=== PATIENT | female | born 1940 | race Caucasian/White ===

== ENCOUNTER 2019-12-11 07:51 | Outpatient (REF) | payer MEDICARE, OTHER, SELFPAY ==
[2019-12-11 12:01] LABS: Cholesterol 207 mg/dL; HDL Cholesterol 84 mg/dL; LDL Cholesterol Calculated 98 mg/dl; Triglycerides 128 mg/dL
== END 2019-12-11 07:52 | disposition home or self-care (01) ==
LOC: HO.HMGCLDS 07:51
PROVIDERS: PCP Internal Medicine; Visit Provider Internal Medicine
DX: E78.5 Hyperlipidemia, unspecified (principal)
CPT/HCPCS: 36415; 80061

== ENCOUNTER 2020-02-14 09:20 | Outpatient (REF) | payer MEDICARE, OTHER, SELFPAY ==
--- NOTE | 2020-02-14 09:30 | MM_ITS ---
EXAMINATION: MM SCREENING DIGITAL BREAST TOMOSYNTHESIS, BILATERAL CLINICAL INFORMATION: Screening. Asymptomatic. The lifetime risk of breast cancer based on the Tyrer-Cuzick Model is 2.0%. COMPARISON: Mammography: February 08, 2019 and studies dating back to December 29, 2011 TECHNIQUE: Digital breast tomosynthesis is performed in both the craniocaudal and mediolateral oblique views along with computer-aided detection (CAD). Synthesized 2D images are generated from the tomosynthesis. FINDINGS: There are scattered areas of fibroglandular density (ACR BI-RADS breast composition Category b). There are no significant masses, abnormal calcifications, or other abnormalities. MM/MM tomosynthesis screening BI IMPRESSION: There are no significant changes from prior study. ASSESSMENT: BI-RADS 1: Negative RECOMMENDATION: Routine annual mammography screening. This patient's information was entered into a reminder system with a target due date for their next mammogram.
== END 2020-02-14 09:21 | disposition home or self-care (01) ==
LOC: HO.MAMMO 09:20
PROVIDERS: PCP Internal Medicine; Visit Provider Internal Medicine
DX: Z12.31 Encounter for screening mammogram for malignant neoplasm of breast (principal)
CPT/HCPCS: 77063; 77067

== ENCOUNTER 2020-04-05 10:58 | Emergency (ER) | payer MEDICARE, OTHER, SELFPAY ==
[2020-04-05 11:26] VITALS: BP 149/70; PULSE 98; RESP 16; TEMP 38.4; O2SAT 95; BMI 31.4
--- NOTE | 2020-04-05 11:37 | CT_ITS ---
EXAMINATION: CT CHEST, CT ABDOMEN AND PELVIS WITHOUT CONTRAST. CLINICAL INFORMATION: Fever and cough. COMPARISON: None TECHNIQUE: 5 mm thin axial and reformatted 3 mm thin sagittal and coronal images of chest, abdomen and pelvis were obtained without contrast. DLP 932. FINDINGS: CHEST: The lungs are expanded with diffuse groundglass patchy opacity seen in left upper lobe, right upper lobe, both lower lobes, right middle lobe and lingular segments of which is most prominent in the left upper lobe consistent with infiltrates. No large mass or pulmonary nodules seen. Heart size and the great vessels are normal caliber. There is no pericardial effusion. There is a small hiatal hernia. The central trachea and bronchi are widely patent. There is no abnormal size mediastinal mass. There are small shotty lymph nodes in the mediastinum. The thyroid lobes are symmetrical and normal. There is minimal bilateral posterior pleural thickening but no effusion is or pneumothorax. Small shotty lymph nodes are seen in bilateral axilla. The chest wall appears unremarkable. ABDOMEN AND PELVIS: The liver is normal size, shape and density. No focal lesion or intrahepatic ductal dilatation seen. The gallbladder is contracted and appears unremarkable. The spleen is normal size and density. The pancreas is homogeneous in density with normal size no focal lesion seen. Bilateral adrenal glands are unremarkable. Both kidneys are normal size, shape and position. No radiopaque renal calculi or hydronephrosis seen. The abdominal aorta is normal course and caliber. No abnormal size retroperitoneal lymph nodes seen. Abdominal wall appears unremarkable. There is scattered stool and gas seen in the colon without any significant distention. The appendix is normal caliber. No inflammatory process seen in the abdomen. Imaging through the pelvis reveals no significant abnormality. Bone windows reveal degenerative disc changes and vacuum disc phenomenon at every disc level. There is moderate ventral spondylosis throughout lumbar spine. CT/CT abdomen pelvis wo con IMPRESSION: Bilateral multilobar infiltrate. Reactive lymph nodes seen in the mediastinum but still within normal limits. Small hiatal hernia Mild constipation otherwise there is no acute process seen in the abdomen.
--- NOTE | 2020-04-05 11:38 | ECG_ITS ---
Test Reason : abdominal pain Blood Pressure : / mmHG Vent. Rate : 066 BPM Atrial Rate : 066 BPM P-R Int : 194 ms QRS Dur : 088 ms QT Int : 412 ms P-R-T Axes : 053 -02 -08 degrees QTc Int : 431 ms Normal sinus rhythm Minimal voltage criteria for LVH, may be normal variant Borderline ECG When compared with ECG of 29-APR-2017 09:56, T wave amplitude has decreased in Lateral leads Referred By: Consuelo Morejon Electronically Signed By:Jeremy Gutierrez
--- NOTE | 2020-04-05 11:50 | ED_ITS ---
HPI - URI/Sore Throat General Chief Complaint: Upper Respiratory Symptoms Stated Complaint: FEVER COUGH ABD PAIN Time Seen by Provider: 04/05/20 11:36 Source: patient Mode of arrival: ambulatory Limitations: no limitations History of Present Illness HPI Narrative: 2 weeks of cough, back pain upper abdominal pain and nausea, noted fevers as well, no sick contacts, sputum became more yellow recently, has had poor PO intake, no CP/SOB, recently dx with uterine cancer but localized and s/p hysterectomy MD elicited complaint: fever and cough Pertinent past history: other (pneumonia) Onset (ago): week(s) (2) Consistency: constant Severity: moderate Description of mucous: clear Able to tolerate fluids by mouth: Yes Exacerbating factors: nothing Relieving factors: nothing Associated symptoms: fever, chills, cough, abdominal pain and nausea Treatments prior to arrival: none Related Data Home Medications Medication Instructions Recorded Confirmed fluocinonide 0.05 % topical 1 applic TOPICAL BID 01/26/20 01/26/20 ointment triamcinolone acetonide 0.1 % TOPICAL 01/26/20 01/26/20 topical ointment Previous Rx's Medication Instructions Recorded atenolol 25 mg tablet 50 mg PO DAILY 90 Days #180 tab 12/18/19 meclizine 25 mg tablet 25 mg PO TID #90 tab 02/05/20 hydrochlorothiazide 25 mg tablet 25 mg PO DAILY #90 tab 03/11/20 lovastatin 40 mg tablet 40 mg PO DAILY #90 tab 03/11/20 cefuroxime axetil 500 mg PO BID 7 Days #28 tab 04/05/20 dexamethasone 4 mg PO DAILY 5 Days #5 tab 04/05/20 doxycycline hyclate 100 mg PO BID 7 Days #14 cap 04/05/20 Allergies Allergy/AdvReac Type Severity Reaction Status Date / Time ciprofloxacin [From Cipro] Allergy Mild DIARRHEA,CR Verified 04/05/20 11:30 AMPING clarithromycin [From Biaxin] Allergy Mild DIARRHEA,CR Verified 04/05/20 11:30 AMPING AKI Inhibitors Allergy Unknown Unknown Verified 04/05/20 11:30 indomethacin [From INDOCIN] Allergy Unknown DIZZY Verified 04/05/20 11:30 lisinopril [LISINOPRIL] Allergy Unknown DIZZY Verified 04/05/20 11:30 Review of Systems Review of Systems: Constitutional : No Weight loss, pos Fever, No Chills, pos Fatigue, pos Malaise ENT/Mouth : No sore throat, No Rhinorrhea Eyes: No Eye Pain, No Swelling, No Redness Cardiovascular : No Chest Pain, No SOB, No Dyspnea on Exertion, No Orthopnea, No Edema, No Palpitations Respiratory : pos Cough, pos Sputum, No Wheezing Gastrointestinal : pos Nausea, No Vomiting, No Diarrhea, No Constipation, pos abdominal Pain, No Hematochezia, No Melena Genitourinary : No Dysuria, No Urinary Frequency, No Hematuria, Musculoskeletal : No joint pain, pos Myalgias, No Joint Swelling Skin : No Skin Lesions, No rash Neuro : No Weakness, No Numbness, No Dizziness, No Headache Psych : No Anxiety/Panic, No Depression Heme/Lymph: No Bruising, No Bleeding,No Lymphadenopathy Endocrine : No Polyuria, No Polydipsia All other systems reviewed and are negative FORMERLY [facility], [facility] Past Medical History Attestation statement: The following information was validated with the patient. Medical History Hypertension Surgical History H/O rectal polypectomy History of breast lump/mass excision History of cataract surgery History of section History of hysterectomy History of melanoma excision Family History Family History (Updated 01/23/20 @ 11:26 by Hui Rae [facility]) Father Stroke Mother Emphysema lung Social History Social History Alcohol intake: current Alcohol intake frequency: holidays/special occasions only Smoking Status: Never smoker Tobacco Type: Cigarette Advance Directives: No Advance Directives Information Provided: No Physical Exam Vital Signs: Vital Signs: Last Vital Signs Temp 101.2 F H 04/05/20 11:26 Pulse 64 04/05/20 14:12 Resp 18 04/05/20 14:12 BP 122/53 L 04/05/20 14:12 Pulse Ox 94 04/05/20 14:18 Body Mass Index 31.4 Appearance: Alert. Oriented X3. No acute distress. Not toxic, well appearing Eyes: Pupils equal, round and reactive to light. ENT: Pharynx normal. Neck: Normal inspection. Neck supple. CVS: Normal heart rate and rhythm. Pulses normal. Respiratory: No respiratory distress. Breath sounds normal but rales in RLL Abdomen: Soft and nontender. Skin: Skin warm and dry. Normal skin color. Normal skin turgor. Extremities: No lower extremity edema. No calf ttp Neuro: Oriented X 3. No motor deficit. No sensory deficit. Course Course Course Narrative: walking sat 94% denies shortness of breath repeat trop flat, doubt bacterial component, WBC normal seems COVID related, requires no O2 will start on steroids, antibiotics and she has a pulse oximeter at home MDM - URI/Sore Throat MDM Narrative Medical decision making narrative: 79 yo female with HTN, s/p hysterectomy for localized endometrial cancer - has been doing well but for 2 weeks notes poor PO intake, malaise some upper abdominal pain and back pain, cough with sputum pr oduction, no CP/SOB hypoxia or tachycardia to suggest PE CT chest abdomen for infection/pneumonia, COVID swab, PO tylenol and zofran, UA ordered, dispo per results and findings. Lab Data Result diagrams: 04/05/20 12:10 04/05/20 12:10 Labs: Lab Results 04/05/20 04/05/20 04/05/20 Range/Units 12:10 12:10 12:10 WBC 3.5 L (4.8-10.8) X10*3/uL RBC 4.76 (4.20-5.50) X10*6/uL Hgb 14.3 (12.0-16.0) g/dl Hct 44.1 (37-47) % MCV 92.6 (80-98) fL MCH 30.0 (27.0-33.0) pg MCHC 32.4 (31.0-35.0) g/dl RDW 12.4 (11.0-16.0) % Plt Count 149 L (160-400) X10*3/uL MPV 10.5 (9.4-12.3) fL Immature Gran % (Auto) 0.3 (0.0-0.4) % Neut % (Auto) 59.1 (45-73) % Lymph % (Auto) 18.4 L (20-40) % Mcdonald % (Auto) 21.9 H (2-11) % Eos % (Auto) 0.0 (0-4) % Baso % (Auto) 0.3 (0-2) % Lymph # (Auto) 0.6 L (1.2-4.9) X10*3/uL Mcdonald # (Auto) 0.8 (0.1-1.2) X10*3/uL Eos # (Auto) 0.0 (0.0-0.4) X10*3/uL Baso # (Auto) 0.0 (0.0-0.2) X10*3/uL Abs Immat Gran (auto) 0.01 (0.00-0.03) X10*3/uL Absolute Neuts (auto) 2.1 (2.0-8.3) X10*3/uL Absolute Nucleated RBC 0.000 (0.0-0.012) X10*3/uL Nucleated RBC % (auto) 0.0 (0.0-0.2) /100WBC Smear Tech's Comments VERIFIED PT 14.5 H (10.8-13.0) SEC INR 1.2 H (0.9-1.1) APTT 39.5 H (24.1-38.0) SEC Sodium 137 (135-145) mmol/L Potassium 3.5 (3.3-5.1) mmol/L Chloride 94 L (96-108) mmol/L Carbon Dioxide 31 H (22-29) mmol/L Anion Gap 16 (12-20) BUN 15 (9-16) mg/dL Creatinine 0.75 (0.5-1.4) mg/dL Estim Creat Clear Calc 57.4 Estimated GFR > 60 Random Glucose 115 (60-115) mg/dL Lactic Acid (0.5-2.0) mmol/L Calcium 8.4 (8.4-10.2) mg/dL Magnesium 1.9 (1.6-2.6) mg/dL Ferritin (10-250) ng/mL Total Bilirubin 0.6 (0.0-1.0) mg/dL Direct Bilirubin 0.2 (0.0-0.5) mg/dL AST 34 H (5-31) U/L ALT 23 (0-31) U/L Alkaline Phosphatase 59 (39-117) U/L Lactate Dehydrogenase 272 H (122-220) U/L Troponin I High Sens (<3.5-17.0) ng/L Total Protein 7.4 (6.5-8.0) g/dL Albumin 4.2 (3.5-5.0) g/dL Lipase (8-78) U/L Procalcitonin ng/mL Specimen Comment Coronavirus (PCR) (Negative) Influenza Type A (PCR) (Negative) Influenza Type B (PCR) (Negative) RSV RNA Qual (PCR) (Negative) 04/05/20 04/05/20 04/05/20 Range/Units 12:10 12:10 12:10 WBC (4.8-10.8) X10*3/uL RBC (4.20-5.50) X10*6/uL Hgb (12.0-16.0) g/dl Hct (37-47) % MCV (80-98) fL MCH (27.0-33.0) pg MCHC (31.0-35.0) g/dl RDW (11.0-16.0) % Plt Count (160-400) X10*3/uL MPV (9.4-12.3) fL Immature Gran % (Auto) (0.0-0.4) % Neut % (Auto) (45-73) % Lymph % (Auto) (20-40) % Mcdonald % (Auto) (2-11) % Eos % (Auto) (0-4) % Baso % (Auto) (0-2) % Lymph # (Auto) (1.2-4.9) X10*3/uL Mcdonald # (Auto) (0.1-1.2) X10*3/uL Eos # (Auto) (0.0-0.4) X10*3/uL Baso # (Auto) (0.0-0.2) X10*3/uL Abs Immat Gran (auto) (0.00-0.03) X10*3/uL Absolute Neuts (auto) (2.0-8.3) X10*3/uL Absolute Nucleated RBC (0.0-0.012) X10*3/uL Nucleated RBC % (auto) (0.0-0.2) /100WBC Smear Tech's Comments PT (10.8-13.0) SEC INR (0.9-1.1) APTT (24.1-38.0) SEC Sodium (135-145) mmol/L Potassium (3.3-5.1) mmol/L Chloride (96-108) mmol/L Carbon Dioxide (22-29) mmol/L Anion Gap (12-20) BUN (9-16) mg/dL Creatinine (0.5-1.4) mg/dL Estim Creat Clear Calc Estimated GFR Random Glucose (60-115) mg/dL Lactic Acid 1.3 (0.5-2.0) mmol/L Calcium (8.4-10.2) mg/dL Magnesium (1.6-2.6) mg/dL Ferritin 694 H (10-250) ng/mL Total Bilirubin (0.0-1.0) mg/dL Direct Bilirubin (0.0-0.5) mg/dL AST (5-31) U/L ALT (0-31) U/L Alkaline Phosphatase (39-117) U/L Lactate Dehydrogenase (122-220) U/L Troponin I High Sens (<3.5-17.0) ng/L Total Protein (6.5-8.0) g/dL Albumin (3.5-5.0) g/dL Lipase 67 (8-78) U/L Procalcitonin 0.10 ng/mL Specimen Comment Coronavirus (PCR) (Negative) Influenza Type A (PCR) (Negative) Influenza Type B (PCR) (Negative) RSV RNA Qual (PCR) (Negative) 04/05/20 04/05/20 04/05/20 Range/Units 12:10 12:11 14:07 WBC (4.8-10.8) X10*3/uL RBC (4.20-5.50) X10*6/uL Hgb (12.0-16.0) g/dl Hct (37-47) % MCV (80-98) fL MCH (27.0-33.0) pg MCHC (31.0-35.0) g/dl RDW (11.0-16.0) % Plt Count (160-400) X10*3/uL MPV (9.4-12.3) fL Immature Gran % (Auto) (0.0-0.4) % Neut % (Auto) (45-73) % Lymph % (Auto) (20-40) % Mcdonald % (Auto) (2-11) % Eos % (Auto) (0-4) % Baso % (Auto) (0-2) % Lymph # (Auto) (1.2-4.9) X10*3/uL Mcdonald # (Auto) (0.1-1.2) X10*3/uL Eos # (Auto) (0.0-0.4) X10*3/uL Baso # (Auto) (0.0-0.2) X10*3/uL Abs Immat Gran (auto) (0.00-0.03) X10*3/uL Absolute Neuts (auto) (2.0-8.3) X10*3/uL Absolute Nucleated RBC (0.0-0.012) X10*3/uL Nucleated RBC % (auto) (0.0-0.2) /100WBC Smear Tech's Comments PT (10.8-13.0) SEC INR (0.9-1.1) APTT (24.1-38.0) SEC Sodium (135-145) mmol/L Potassium (3.3-5.1) mmol/L Chloride (96-108) mmol/L Carbon Dioxide (22-29) mmol/L Anion Gap (12-20) BUN (9-16) mg/dL Creatinine (0.5-1.4) mg/dL Estim Creat Clear Calc Estimated GFR Random Glucose (60-115) mg/dL Lactic Acid (0.5-2.0) mmol/L Calcium (8.4-10.2) mg/dL Magnesium (1.6-2.6) mg/dL Ferritin (10-250) ng/mL Total Bilirubin (0.0-1.0) mg/dL Direct Bilirubin (0.0-0.5) mg/dL AST (5-31) U/L ALT (0-31) U/L Alkaline Phosphatase (39-117) U/L Lactate Dehydrogenase (122-220) U/L Troponin I High Sens 13.4 (<3.5-17.0) ng/L Total Protein (6.5-8.0) g/dL Albumin (3.5-5.0) g/dL Lipase (8-78) U/L Procalcitonin ng/mL Specimen Comment DELAY Coronavirus (PCR) POSITIVE A (Negative) Influenza Type A (PCR) NEGATIVE (Negative) Influenza Type B (PCR) NEGATIVE (Negative) RSV RNA Qual (PCR) NEGATIVE (Negative) 04/05/20 Range/Units 15:07 WBC (4.8-10.8) X10*3/uL RBC (4.20-5.50) X10*6/uL Hgb (12.0-16.0) g/dl Hct (37-47) % MCV (80-98) fL MCH (27.0-33.0) pg MCHC (31.0-35.0) g/dl RDW (11.0-16.0) % Plt Count (160-400) X10*3/uL MPV (9.4-12.3) fL Immature Gran % (Auto) (0.0-0.4) % Neut % (Auto) (45-73) % Lymph % (Auto) (20-40) % Mcdonald % (Auto) (2-11) % Eos % (Auto) (0-4) % Baso % (Auto) (0-2) % Lymph # (Auto) (1.2-4.9) X10*3/uL Mcdonald # (Auto) (0.1-1.2) X10*3/uL Eos # (Auto) (0.0-0.4) X10*3/uL Baso # (Auto) (0.0-0.2) X10*3/uL Abs Immat Gran (auto) (0.00-0.03) X10*3/uL Absolute Neuts (auto) (2.0-8.3) X10*3/uL Absolute Nucleated RBC (0.0-0.012) X10*3/uL Nucleated RBC % (auto) (0.0-0.2) /100WBC Smear Tech's Comments PT (10.8-13.0) SEC INR (0.9-1.1) APTT (24.1-38.0) SEC Sodium (135-145) mmol/L Potassium (3.3-5.1) mmol/L Chloride (96-108) mmol/L Carbon Dioxide (22-29) mmol/L Anion Gap (12-20) BUN (9-16) mg/dL Creatinine (0.5-1.4) mg/dL Estim Creat Clear Calc Estimated GFR Random Glucose (60-115) mg/dL Lactic Acid (0.5-2.0) mmol/L Calcium (8.4-10.2) mg/dL Magnesium (1.6-2.6) mg/dL Ferritin (10-250) ng/mL Total Bilirubin (0.0-1.0) mg/dL Direct Bilirubin (0.0-0.5) mg/dL AST (5-31) U/L ALT (0-31) U/L Alkaline Phosphatase (39-117) U/L Lactate Dehydrogenase (122-220) U/L Troponin I High Sens 13.5 (<3.5-17.0) ng/L Total Protein (6.5-8.0) g/dL Albumin (3.5-5.0) g/dL Lipase (8-78) U/L Procalcitonin ng/mL Specimen Comment Coronavirus (PCR) (Negative) Influenza Type A (PCR) (Negative) Influenza Type B (PCR) (Negative) RSV RNA Qual (PCR) (Negative) ECG Data Attestation: I personally reviewed and interpreted this ECG as follows: ECG interpretation date: 04/05/20 ECG interpretation time: 14:36 Interpretation: Rate: 66 Rhythm: NSR [place]: left Normal P waves. Normal REHANA. Normal QRS complex. ST T wave : no KIMBERLY, nonspecific qTC: normal prior studies: no acute ischemia The study has been interpreted contemporaneously by me. . Discharge Plan Discharge Clinical Impression: Pneumonia due to 2019-nCoV Fever Qualifiers: Fever type: unspecified Qualified Code(s): R50.9 - Fever, unspecified Patient Disposition: Home, Self-Care Additional Instructions: return to ED for any worsening symptoms or concerns USE YOUR OXYGEN PULSE OXIMETER AT HOME IF YOU DROP BELOW 90 PLEASE COME BACK SOON POSSIBLE, MONITOR YOUR BREATHING, IF YOU ARE SO SHORT OF BREATH YOU CANNOT MAKE IT TO THE BATHROOM CALL 911. DO NOT TAKE ANY DEXAMETHASONE TONIGHT OR ANTIBIOTICS START IN THE MORNING Prescriptions: New doxycycline hyclate 100 mg capsule 100 mg PO BID 7 Days Qty: 14 RF: 0 cefuroxime axetil 250 mg tablet 500 mg PO BID 7 Days Qty: 28 RF: 0 dexamethasone 4 mg tablet 4 mg PO DAILY 5 Days Qty: 5 RF: 0 No Action atenolol 25 mg tablet 50 mg PO DAILY 90 Days Qty: 180 RF: 8 meclizine 25 mg tablet 25 mg PO TID Qty: 90 RF: 5 lovastatin 40 mg tablet 40 mg PO DAILY Qty: 90 RF: 8 hydrochlorothiazide 25 mg tablet 25 mg PO DAILY Qty: 90 RF: 8 fluocinonide 0.05 % ointment 1 applic topical BID RF: 0 triamcinolone acetonide 0.1 % ointment topical RF: 0
[2020-04-05] MEDS: ondansetron HCL 4 MG/2 ML VIAL IVPUSH (12:22)
[2020-04-05] MEDS: Acetaminophen 325 MG TABLET 650 MG PO (12:22)
[2020-04-05 12:27] LABS: INTERNATIONAL NORM RATIO 1.2 (0.9-1.1); Prothrombin Time 14.5 SEC (10.8-13.0)
[2020-04-05 12:29] LABS: Basophils Percent Auto 0.3 % (0-2); Hematocrit 44.1 % (37-47); Hemoglobin 14.3 g/dl (12.0-16.0); Imm Gran Abs Auto 0.01 X10*3/uL (0.00-0.03); Imm Gran Pct Auto 0.3 % (0.0-0.4); Lymphocytes Absolute Auto 0.6 X10*3/uL (1.2-4.9); Lymphocytes Percent Auto 18.4 % (20-40); MANUAL DIFF FLAG SCAN; Mean Corpuscular HGB Conc 32.4 g/dl (31.0-35.0); Mean Corpuscular Volume 92.6 fL (80-98); Mean Platelet Volume 10.5 fL (9.4-12.3); Monocytes Absolute Auto 0.8 X10*3/uL (0.1-1.2); Monocytes Percent Auto 21.9 % (2-11); Neutrophils Absolute Auto 2.1 X10*3/uL (2.0-8.3); Neutrophils Percent Auto 59.1 % (45-73); Platelet Count 149 X10*3/uL (160-400); Red Blood Count 4.76 X10*6/uL (4.20-5.50); Red Cell Distribution Width 12.4 % (11.0-16.0); SCAN SMEAR FLAG 1; White Blood Count 3.5 X10*3/uL (4.8-10.8)
[2020-04-05 12:30] LABS: Partial Thromboplastin Time 39.5 SEC (24.1-38.0)
[2020-04-05 12:48] LABS: Lactic Acid 1.3 mmol/L (0.5-2.0)
[2020-04-05 12:51] LABS: Alanine Aminotransferase 23 U/L (0-31); Albumin Level 4.2 g/dL (3.5-5.0); Alkaline Phosphatase 59 U/L (39-117); Anion Gap 16 (12-20); Aspartate Amino Transferase 34 U/L (5-31); Bilirubin Direct 0.2 mg/dL (0.0-0.5); Bilirubin Total 0.6 mg/dL (0.0-1.0); Blood Urea Nitrogen 15 mg/dL (9-16); Calcium 8.4 mg/dL (8.4-10.2); Carbon Dioxide 31 mmol/L (22-29); Chloride 94 mmol/L (96-108); Creatinine Clr Calc Pharmacy 57.4; Estimated Glomerular Filt Rate > 60; Glucose Random 115 mg/dL (60-115); Lactate Dehydrogenase 272 U/L (122-220); Magnesium 1.9 mg/dL (1.6-2.6); Potassium 3.5 mmol/L (3.3-5.1); Sodium 137 mmol/L (135-145); Total Protein 7.4 g/dL (6.5-8.0)
[2020-04-05 12:52] LABS: Lipase 67 U/L (8-78); SLIDE REVIEW VERIFIED
[2020-04-05 12:58] LABS: Troponin-I High Sensitivity 13.4 ng/L (<3.5-17.0)
[2020-04-05 13:13] LABS: Ferritin 694 ng/mL (10-250)
[2020-04-05 13:20] LABS: Influenza A PCR NEGATIVE (Negative); Influenza B PCR NEGATIVE (Negative); Resp Syncy Virus RNA Qual PCR NEGATIVE (Negative); SARS COV2 PCR INHOUSE POSITIVE (Negative)
[2020-04-05 14:08] LABS: Delay - Chemistry DELAY
[2020-04-05 14:12] VITALS: BP 122/53; PULSE 64; RESP 18; O2SAT 94
[2020-04-05 14:18] VITALS: O2SAT 94
[2020-04-05] MEDS: cefTRIAXone sodium 1 GM in 0.9 % Sodium Chloride 50 ML IV (15:02)
[2020-04-05] MEDS: dexAMETHasone sod phosphate 4 MG/ML VIAL IVPUSH (15:02)
[2020-04-05 15:42] LABS: Troponin-I High Sensitivity 13.5 ng/L (<3.5-17.0)
== END 2020-04-05 16:53 | disposition home or self-care (01) ==
PROVIDERS: Emergency Provider Emergency Medicine; PCP Internal Medicine
DX: U07.1 COVID-19 (principal); J12.82 Pneumonia due to coronavirus disease 2019; R50.9 Fever, unspecified; R05 Cough; Z79.899 Other long term (current) drug therapy
CPT/HCPCS: 0241U; 36415; 71250; 74176; 80048; 80076; 82728; 83605; 83615; 83690; 83735; 84145; 84484; 85025; 85610; 85730; 87040; 93005; 96365; 96375; 99284; J0696; J1100; J2405

== ENCOUNTER 2020-04-06 10:03 | Inpatient (IN) | payer MEDICARE, OTHER, SELFPAY ==
[2020-04-06] VITALS (9 sets, daily range): BP systolic 98–126; BP diastolic 48–70; PULSE 75–125; RESP 16–26; TEMP 36.4–38.8; O2SAT 93–98; BMI 31.4
--- NOTE | 2020-04-06 11:42 | XR_ITS ---
EXAMINATION: XR CHEST CLINICAL INFORMATION: 79-year-old female patient with shortness of breath. Pneumonia. COMPARISON: CT of the chest done yesterday. (Multilobar infiltrates ). TECHNIQUE: AP portable semierect view of the chest was obtained. The time of examination was 12:45 PM. FINDINGS: Examination reveals ill-defined airspace opacities in the left upper and lower lobes as well as the right lower lobe. No definite progression is present when compared to yesterday's CT exam. There is no pleural effusion. XR/XR chest 1V IMPRESSION: Atypical multilobar pneumonia.
--- NOTE | 2020-04-06 11:43 | ECG_ITS ---
Test Reason : DIFFICULTY BREATHING Blood Pressure : / mmHG Vent. Rate : 106 BPM Atrial Rate : 115 BPM P-R Int : 000 ms QRS Dur : 086 ms QT Int : 344 ms P-R-T Axes : 000 003 -48 degrees QTc Int : 456 ms Atrial fibrillation with rapid ventricular response Minimal voltage criteria for LVH, may be normal variant ST & T wave abnormality, consider inferior ischemia Abnormal ECG When compared with ECG of 05-APR-2020 14:24, Atrial fibrillation has replaced Sinus rhythm Vent. rate has increased BY 40 BPM Referred By: Mariajose Iglesias Electronically Signed By:Jeremy Gutierrez
--- NOTE | 2020-04-06 11:46 | ED_ITS ---
HPI - General Adult General Chief complaint: Upper Respiratory Symptoms Stated complaint: sob Time Seen by Provider: 04/06/20 11:18 Source: patient Mode of arrival: ambulatory Limitations: no limitations History of Present Illness HPI narrative: 79-year-old female came in with shortness of breath, fever, chills. Patient was seen and evaluated yesterday in the emergency department for similar symptoms, patient was positive for COVID, CT scan of the chest showed bacterial pneumonia multilobar infiltrate, yesterday patient did well in the emergency department required no supplemental oxygen, patient was sent home on cefuroxime/doxycycline/prednisone. Patient took the 1st 2 doses yesterday and this morning, return to the emergency department because she is not feeling better and feeling worse than yesterday. Patient lives home alone and asking to be hospitalized. Related Data Home Medications Medication Instructions Recorded Confirmed aspirin 81 mg PO DAILY 04/06/20 04/06/20 meclizine 25 mg PO DAILY PRN 04/06/20 04/06/20 multivitamin 1 tab PO DAILY 04/06/20 04/06/20 Previous Rx's Medication Instructions Recorded atenolol 25 mg tablet 50 mg PO DAILY 90 Days #180 tab 12/18/19 hydrochlorothiazide 25 mg tablet 25 mg PO DAILY #90 tab 03/11/20 lovastatin 40 mg tablet 40 mg PO DAILY #90 tab 03/11/20 Allergies Allergy/AdvReac Type Severity Reaction Status Date / Time ciprofloxacin [From Cipro] Allergy Mild DIARRHEA,CR Verified 04/05/20 11:30 AMPING clarithromycin [From Biaxin] Allergy Mild DIARRHEA,CR Verified 04/05/20 11:30 AMPING AKI Inhibitors Allergy Unknown Unknown Verified 04/05/20 11:30 indomethacin [From INDOCIN] Allergy Unknown DIZZY Verified 04/05/20 11:30 lisinopril [LISINOPRIL] Allergy Unknown DIZZY Verified 04/05/20 11:30 Review of Systems Review of Systems: All other systems are reviewed and are negative Constitutional: Reports as per HPI and Reports no additional constitutional complaints Eyes: Reports as per HPI and Reports no additional eye complaints Reports system reviewed and no additional complaints, except as documented Cardiovascular: Reports as per HPI and Reports no additional cardiovascular complaints Respiratory: Reports as per HPI and Reports no additional respiratory complaints Gastrointestinal: Reports as per HPI and Reports no additional gastrointestinal complaints Genitourinary: Reports no additional female genitourinary complaints Musculoskeletal: Reports no additional musculoskeletal complaints Skin/Breast: Reports system reviewed and no additional complaints, except as docu Psychiatric: Reports no additional psychiatric complaints Endocrine: Reports no additional endocrine complaints Hematologic/Lymphatic: Reports no additional hematologic/lymphatic complaints Allergic/Immunologic: Reports no additional allergic/immunologic complaints Reports system reviewed and no additional complaints, except as documented and Reports Abnormal speech present FOR[facility] Past Medical History Medical History Hypertension Surgical History H/O rectal polypectomy History of breast lump/mass excision History of cataract surgery History of section History of hysterectomy History of melanoma excision Family History Family History Father Stroke Mother Emphysema lung Social History Social History Alcohol intake: never Smoking Status: Never smoker Tobacco Type: Cigarette Use of substances other than those prescribed or required for medical reasons: No Advance Directives: No Advance Directives Information Provided: No Physical Exam Vital Signs: Vital Signs: Last Vital Signs Temp 99 F 04/06/20 13:26 Pulse 123 H 04/06/20 14:44 Resp 16 04/06/20 14:44 BP 115/70 04/06/20 14:44 Pulse Ox 95 04/06/20 14:44 Body Mass Index 31.4 Vital signs have been reviewed as normal and appeared to be correct. Blood pressure normal. Heart rate normal. Respiration rate normal. Temperature febrile. Oxygen saturation normal. Appearance: Alert. Oriented X3. No acute distress. Head: Normal external exam. Normocephalic. Atraumatic. No Beebe signs noted. No raccoon eyes noted Eyes: PERRLA. EOMI. Conjunctiva and sclera normal. Eyelids normal. ENT: EAC normal. TM's Normal. Pharynx normal. Uvula midline. Moist mucous membranes. No trismus noted. No drooling noted. No muffled voice noted. Neck: Normal inspection. Neck supple. FROM. No adenopathy. Thyroid Normal. No meningeal signs. No neck mass noted. CVS: Normal heart rate and rhythm. Heart sound normal. No murmurs noted. Pulses normal throughout. Respiratory: No respiratory distress. Painless inspiration. Breath sounds normal. No wheezes/rales/rhonchi noted. Chest nontender. No accessory muscle usage noted or decreased air movement noted. Abdomen: Soft and nontender. Bowel sounds normal in all 4 quadrants. No d istention noted. No organomegaly noted. No visible injury noted. Back: No CVA tenderness. Full range of motion noted. Skin: Skin warm and dry. Normal skin color. Normal skin turgor. No rashes/l esions/lacerations noted. Extremities: No lower extremity edema. Extremities exhibit normal range of motion. Extremities nontender. Neuro: Oriented X 3. No motor deficit. No sensory deficit. Reflexes normal. Course Course Course Narrative: Assessment and plan. This is a 79-year-old female came in with positive COVID pneumonia, CT showing possible multifocal multilobar pneumonia doubt bacterial, patient was sent home yesterday on antibiotic, patient returned because persistent of the symptoms and the fever, patient did not show any hypoxia while she is in the emergency department, as a routine workup patient had an EKG today which showed new onset of atrial fibrillation (was not there on yesterday's EKG). Patient has a borderline hypotension will start with Cardizem 30 mg p.o. and keep monitoring blood pressure. Will admit the patient for IV antibiotics/further evaluation of new onset atrial fibrillation. Medical Decision Making Lab Data Lab results reviewed: Yes I reviewed the patient's lab results. Result diagrams: 04/06/20 12:33 04/06/20 12:33 Labs: Lab Results 04/06/20 04/06/20 04/06/20 Range/Units 12:33 12:33 12:33 WBC 4.1 L (4.8-10.8) X10*3/uL RBC 4.77 (4.20-5.50) X10*6/uL Hgb 14.4 (12.0-16.0) g/dl Hct 44.2 (37-47) % MCV 92.7 (80-98) fL MCH 30.2 (27.0-33.0) pg MCHC 32.6 (31.0-35.0) g/dl RDW 12.3 (11.0-16.0) % Plt Count 166 (160-400) X10*3/uL MPV 12.0 (9.4-12.3) fL Immature Gran % (Auto) 0.7 H (0.0-0.4) % Neut % (Auto) 69.3 (45-73) % Lymph % (Auto) 13.4 L (20-40) % [place] % (Auto) 16.6 H (2-11) % Eos % (Auto) 0.0 (0-4) % Baso % (Auto) 0.0 (0-2) % Lymph # (Auto) 0.6 L (1.2-4.9) X10*3/uL [place] # (Auto) 0.7 (0.1-1.2) X10*3/uL Eos # (Auto) 0.0 (0.0-0.4) X10*3/uL Baso # (Auto) 0.0 (0.0-0.2) X10*3/uL Abs Immat Gran (auto) 0.03 (0.00-0.03) X10*3/uL Absolute Neuts (auto) 2.8 (2.0-8.3) X10*3/uL Absolute Nucleated RBC 0.000 (0.0-0.012) X10*3/uL Nucleated RBC % (auto) 0.0 (0.0-0.2) /100WBC Smear Tech's Comments VERIFIED Sodium 136 (135-145) mmol/L Potassium 4.7 D (3.3-5.1) mmol/L Chloride 94 L (96-108) mmol/L Carbon Dioxide 27 (22-29) mmol/L Anion Gap 20 (12-20) BUN 21 H (9-16) mg/dL Creatinine 1.03 (0.5-1.4) mg/dL Estim Creat Clear Calc 41.7 Estimated GFR 52 Random Glucose 148 H (60-115) mg/dL Lactic Acid 2.1 H* (0.5-2.0) mmol/L Calcium 8.5 (8.4-10.2) mg/dL Total Bilirubin 0.5 (0.0-1.0) mg/dL Direct Bilirubin < 0.2 (0.0-0.5) mg/dL AST 65 H (5-31) U/L ALT 34 H (0-31) U/L Alkaline Phosphatase 58 (39-117) U/L B-Natriuretic Peptide (<100) pg/mL Total Protein 8.1 H (6.5-8.0) g/dL Albumin 3.8 (3.5-5.0) g/dL Lipase 62 (8-78) U/L 04/06/20 Range/Units 12:33 WBC (4.8-10.8) X10*3/uL RBC (4.20-5.50) X10*6/uL Hgb (12.0-16.0) g/dl Hct (37-47) % MCV (80-98) fL MCH (27.0-33.0) pg MCHC (31.0-35.0) g/dl RDW (11.0-16.0) % Plt Count (160-400) X10*3/uL MPV (9.4-12.3) fL Immature Gran % (Auto) (0.0-0.4) % Neut % (Auto) (45-73) % Lymph % (Auto) (20-40) % [place] % (Auto) (2-11) % Eos % (Auto) (0-4) % Baso % (Auto) (0-2) % Lymph # (Auto) (1.2-4.9) X10*3/uL [place] # (Auto) (0.1-1.2) X10*3/uL Eos # (Auto) (0.0-0.4) X10*3/uL Baso # (Auto) (0.0-0.2) X10*3/uL Abs Immat Gran (auto) (0.00-0.03) X10*3/uL Absolute Neuts (auto) (2.0-8.3) X10*3/uL Absolute Nucleated RBC (0.0-0.012) X10*3/uL Nucleated RBC % (auto) (0.0-0.2) /100WBC Smear Tech's Comments Sodium (135-145) mmol/L Potassium (3.3-5.1) mmol/L Chloride (96-108) mmol/L Carbon Dioxide (22-29) mmol/L Anion Gap (12-20) BUN (9-16) mg/dL Creatinine (0.5-1.4) mg/dL Estim Creat Clear Calc Estimated GFR Random Glucose (60-115) mg/dL Lactic Acid (0.5-2.0) mmol/L Calcium (8.4-10.2) mg/dL Total Bilirubin (0.0-1.0) mg/dL Direct Bilirubin (0.0-0.5) mg/dL AST (5-31) U/L ALT (0-31) U/L Alkaline Phosphatase (39-117) U/L B-Natriuretic Peptide 131 H (<100) pg/mL Total Protein (6.5-8.0) g/dL Albumin (3.5-5.0) g/dL Lipase (8-78) U/L Imaging Data Chest x-ray: Radiologist's impression: Examination reveals ill-defined airspace opacities in the left upper and lower lobes as well as the right lower lobe. No definite progression is present when compared to yesterday's CT exam. There is no pleural effusion. ECG Data Interpretation: Atrial fibrillation (new since yesterday) at 106 beats per minutes, normal axis deviation, otherwise normal intervals, LVH, nonspecific ST- T changes. Discharge Plan Discharge Clinical Impression: Pneumonia due to 2019-nCoV, Atrial fibrillation, new onset Patient Disposition: Admitted As Inpatient Prescriptions: No Action atenolol 25 mg tablet 50 mg PO DAILY 90 Days Qty: 180 RF: 8 lovastatin 40 mg tablet 40 mg PO DAILY Qty: 90 RF: 8 hydrochlorothiazide 25 mg tablet 25 mg PO DAILY Qty: 90 RF: 8 multivitamin Tablet 1 tab PO DAILY RF: 0 aspirin 81 mg Tablet 81 mg PO DAILY RF: 0 meclizine 25 mg tablet 25 mg PO DAILY PRN (Reason: Dizziness) RF: 0
[2020-04-06] MEDS: 0.9 % Sodium Chloride 1,000 ML 999 ML IVCONT (12:39)
[2020-04-06 13:06] LABS: Hematocrit 44.2 % (37-47); Hemoglobin 14.4 g/dl (12.0-16.0); Imm Gran Abs Auto 0.03 X10*3/uL (0.00-0.03); Imm Gran Pct Auto 0.7 % (0.0-0.4); Lymphocytes Absolute Auto 0.6 X10*3/uL (1.2-4.9); Lymphocytes Percent Auto 13.4 % (20-40); MANUAL DIFF FLAG SCAN; Mean Corpuscular HGB Conc 32.6 g/dl (31.0-35.0); Mean Corpuscular Hemoglobin 30.2 pg (27.0-33.0); Mean Corpuscular Volume 92.7 fL (80-98); Monocytes Absolute Auto 0.7 X10*3/uL (0.1-1.2); Monocytes Percent Auto 16.6 % (2-11); Neutrophils Absolute Auto 2.8 X10*3/uL (2.0-8.3); Neutrophils Percent Auto 69.3 % (45-73); Platelet Count 166 X10*3/uL (160-400); Red Blood Count 4.77 X10*6/uL (4.20-5.50); Red Cell Distribution Width 12.3 % (11.0-16.0); SCAN SMEAR FLAG 1; White Blood Count 4.1 X10*3/uL (4.8-10.8)
[2020-04-06] MEDS: cefTRIAXone sodium 1 GM in 0.9 % Sodium Chloride 50 ML IV (13:15)
[2020-04-06] MEDS: Acetaminophen 325 MG TABLET 650 MG PO (13:15)
[2020-04-06 13:39] LABS: B Type Natriuretic Peptide 131 pg/mL (<100)
[2020-04-06 13:42] LABS: SLIDE REVIEW VERIFIED
[2020-04-06 13:46] LABS: Alanine Aminotransferase 34 U/L (0-31); Albumin Level 3.8 g/dL (3.5-5.0); Alkaline Phosphatase 58 U/L (39-117); Anion Gap 20 (12-20); Aspartate Amino Transferase 65 U/L (5-31); Bilirubin Direct < 0.2 mg/dL (0.0-0.5); Bilirubin Total 0.5 mg/dL (0.0-1.0); Blood Urea Nitrogen 21 mg/dL (9-16); Calcium 8.5 mg/dL (8.4-10.2); Carbon Dioxide 27 mmol/L (22-29); Chloride 94 mmol/L (96-108); Creatinine Clr Calc Pharmacy 41.7; Estimated Glomerular Filt Rate 52; Glucose Random 148 mg/dL (60-115); Lipase 62 U/L (8-78); Potassium 4.7 mmol/L (3.3-5.1); Sodium 136 mmol/L (135-145); Total Protein 8.1 g/dL (6.5-8.0)
[2020-04-06 13:47] LABS: Lactic Acid 2.1 mmol/L (0.5-2.0)
[2020-04-06 15:04] LABS: Reflex Lactate? Lactic Acid Added
[2020-04-06] MEDS: dilTIAZem HCL 30 MG TABLET PO ×2 (15:49→23:36)
--- NOTE | 2020-04-06 15:53 | PM.IMHP ---
History of Present Illness Date of Service: 04/06/20 <CRISTNIA Adam - Last Filed: 04/06/20 16:11> Chief Complaint: chills <CRISTINA Adam - Last Filed: 04/06/20 16:11> This is a 79 year old female who presents to the ED with chills. Yesterday she was seen in the ED for two weeks of cough and sneezing. She was diagnosed with pneumonia secondary to coronavirus. She did not require supplemental oxygen and was discharged home with antibiotics and oral dexamethasone. Overnight she had difficulty sleeping due to chills. She denies shortness of breath. Lab work was unremarkable other than mild elevation in lactic acid 2.1. However EKG showed atrial fibrillation. Patient denies any previous history of atrial fibrillation. She denies any chest pain, palpitations, dizziness, shortness of breath. She was given a dose of po cardizem. Given new onset afib the decision was made to admit her to the hospital. <CRISTINA Adam - Last Filed: 04/06/20 16:11> Review of Systems Review of Systems: Yes all other systems are reviewed and are negative <CRISTINA Adam - Last Filed: 04/06/20 16:11> Constitutional: Constitutional: Reports chills and Denies fever(s) <CRISTINA Adam - Last Filed: 04/06/20 16:11> Cardiovascular: Cardiovascular: Denies chest pain, Denies palpitations, Denies dyspnea and Denies orthopnea <CRISTINA Adam - Last Filed: 04/06/20 16:11> Respiratory: Respiratory: Denies dyspnea <CRISTINA Adam - Last Filed: 04/06/20 16:11> Gastrointestinal: Gastrointestinal: Denies abdominal pain <CRISTINA Adam Last Filed: 04/06/20 16:11> Endocrine: Endocrine: Denies palpitations <CRISTINA Adam - Last Filed: 04/06/20 16:11> [facility] Medical History: Medical History (Updated 04/06/20 @ 16:02 by CRISTINA Adam) HLD (hyperlipidemia) Hypertension <CRISTINA Adam - Last Filed: 04/06/20 16:11> Functional capacity: independent ambulation <CRISTINA Adam - Last Filed: 04/06/20 16:11> Family History: Family History Father Stroke Mother Emphysema lung <CRISTINA Adam - Last Filed: 04/06/20 16:11> Family history: reviewed and not pertinent <CRISTINA Adam - Last Filed: 04/06/20 16:11> Surgical History: Surgical History H/O rectal polypectomy History of breast lump/mass excision History of cataract surgery History of section History of hysterectomy History of melanoma excision <CRISTINA Adam - Last Filed: 04/06/20 16:11> Social History: Social History (Updated 04/06/20 @ 16:03 by CRISTINA Adam) Household Members: Family Alcohol intake: current Alcohol intake frequency: a few times a week Smoking Status: Never smoker Use of substances other than those prescribed or required for medical reasons: No Advance Directives: No Advance Directives Information Provided: No <CRISTINA Adam - Last Filed: 04/06/20 16:11> Meds Allergies/Adverse reactions: Allergies Allergy/AdvReac Type Severity Reaction Status Date / Time ciprofloxacin [From Cipro] Allergy Mild DIARRHEA,CR Verified 04/05/20 11:30 AMPING clarithromycin [From Biaxin] Allergy Mild DIARRHEA,CR Verified 04/05/20 11:30 AMPING AKI Inhibitors Allergy Unknown Unknown Verified 04/05/20 11:30 indomethacin [From INDOCIN] Allergy Unknown DIZZY Verified 04/05/20 11:30 lisinopril [LISINOPRIL] Allergy Unknown DIZZY Verified 04/05/20 11:30 <CRISTINA Adam - Last Filed: 04/06/20 16:11> Home medications: Home Medications Medication Instructions Recorded Confirmed Type aspirin 81 mg PO DAILY 04/06/20 04/06/20 History cefuroxime axetil 500 mg PO BID 04/06/20 04/06/20 History dexamethasone 4 mg PO DAILY 04/06/20 04/06/20 History doxycycline hyclate 100 mg PO BID 04/06/20 04/06/20 History meclizine 25 mg PO DAILY PRN 04/06/20 04/06/20 History multivitamin 1 tab PO DAILY 04/06/20 04/06/20 History <CRISTINA Adam - Last Filed: 04/06/20 16:11> Physical Exam Vital Signs and Narrative: Vital Signs: Last Vital Signs Temp 99 F 04/06/20 13:26 Pulse 122 H 04/06/20 15:49 Resp 16 04/06/20 14:44 BP 109/66 04/06/20 15:49 Pulse Ox 95 04/06/20 14:44 Body Mass Index 31.4 <CRISTINA Adam - Last Filed: 04/06/20 16:11> Const: Nutritional Appearance: well nourished <CRISTINA Adam - Last Filed: 04/06/20 16:11> Orientation/consciousness: patient oriented x3 <CRISTINA Adam - Last Filed: 04/06/20 16:11> HENMT: Head: Yes normocephalic and Yes atraumatic <CRISTINA Adam - Last Filed: 04/06/20 16:11> Eyes: Sclerae: sclerae normal <CRISTINA Adam - Last Filed: 04/06/20 16:11> Chest: Chest palpation & inspection: normal inspection of the chest <CRISTINA Adam - Last Filed: 04/06/20 16:11> Resp: Effort & Inspection: normal respiratory effort and no respiratory distress <CRISTINA Adam - Last Filed: 04/06/20 16:11> Auscultation: clear to auscultation bilaterally <CRISTINA Adam - Last Filed: 04/06/20 16:11> Cardio: Rate: tachycardic <CRISTINA Adam - Last Filed: 04/06/20 16:11> Rhythm: abnormal rhythm irregularly irregular <CRISTINA Adam - Last Filed: 04/06/20 16:11> GI: Palpation (GI): Soft to palpation and nontender <CRISTINA Adam - Last Filed: 04/06/20 16:11> Skin: General skin exam: no rashes or lesions noted <CRISTINA Adam - Last Filed: 04/06/20 16:11> Neuro: General: patient oriented x3 <CRISTINA Adam - Last Filed: 04/06/20 16:11> Cranial nerves: Yes CN's II-XII intact bilaterally and Yes Bilaterally intact EOM present <CRISTINA Adam - Last Filed: 04/06/20 16:11> Extrem: General: Yes normal to inspection <CRISTINA Adam - Last Filed: 04/06/20 16:11> Results Labs CBC and Chem 7: : 04/07/20 06:50 04/06/20 12:33 <CRISTINA Adam - Last Filed: 04/06/20 16:11> Labs: Laboratory Results - last 24 hr 04/06/20 04/06/20 04/06/20 12:33 12:33 12:33 MCV 92.7 MCH 30.2 MCHC 32.6 RDW 12.3 Plt Count 166 MPV 12.0 Immature Gran % (Auto) 0.7 H Neut % (Auto) 69.3 Lymph % (Auto) 13.4 L [place] % (Auto) 16.6 H Eos % (Auto) 0.0 Baso % (Auto) 0.0 Lymph # (Auto) 0.6 L [place] # (Auto) 0.7 Eos # (Auto) 0.0 Baso # (Auto) 0.0 Abs Immat Gran (auto) 0.03 Absolute Neuts (auto) 2.8 Absolute Nucleated RBC 0.000 Nucleated RBC % (auto) 0.0 Smear Tech's Comments VERIFIED Anion Gap 20 Estim Creat Clear Calc 41.7 Estimated GFR 52 Random Glucose 148 H Lactic Acid 2.1 H* Calcium 8.5 Total Bilirubin 0.5 Direct Bilirubin < 0.2 AST 65 H ALT 34 H Alkaline Phosphatase 58 B-Natriuretic Peptide Total Protein 8.1 H Albumin 3.8 Lipase 62 04/06/20 12:33 MCV MCH MCHC RDW Plt Count MPV Immature Gran % (Auto) Neut % (Auto) Lymph % (Auto) [place] % (Auto) Eos % (Auto) Baso % (Auto) Lymph # (Auto) [place] # (Auto) Eos # (Auto) Baso # (Auto) Abs Immat Gran (auto) Absolute Neuts (auto) Absolute Nucleated RBC Nucleated RBC % (auto) Smear Tech's Comments Anion Gap Estim Creat Clear Calc Estimated GFR Random Glucose Lactic Acid Calcium Total Bilirubin Direct Bilirubin AST ALT Alkaline Phosphatase B-Natriuretic Peptide 131 H Total Protein Albumin Lipase <CRISTINA Adam - Last Filed: 04/06/20 16:11> Imaging Radiologist's Impressions: Impressions Chest X-Ray 04/06/20 11:42 IMPRESSION: Atypical multilobar pneumonia. <CRISTINA Adam - Last Filed: 04/06/20 16:11> Assessment and Plan (1) Atrial fibrillation, new onset: Status: Acute <CRISTINA Adam - Last Filed: 04/06/20 16:11> (2) Pneumonia due to 2019-nCoV: Status: Acute <CRISTINA Adam - Last Filed: 04/06/20 16:11> This is a 79-year-old white female with a history of hypertension, dyslipidemia, diagnosed with coronavirus yesterday who presents to the emergency department was chills found to have new onset atrial fibrillation New onset atrial fibrillation Check mag, tsh [id number] score 4, will start xarelto cardizem [id number], hold atenolol echo cardiology consult HTN BP soft hold HCTZ, atenolol Follow BP closely Pneumonia secondary to coronavirus Continue medication as prescribed in the ED including cefuroxime, doxycycline, dexamethasone No hypoxia, not requiring supplemental oxygen HLD Continue statin DVT prophylaxis-xarelto Code status-full code This case was discussed with Dr. Villatoro <CRISTINA Adam - Last Filed: 04/06/20 16:11>
[2020-04-06 16:10] LABS: ~Lactic Acid-LAB USE ONLY 0.8 mmol/L (0.5-2.0)
[2020-04-06 16:26] LABS: Magnesium 1.9 mg/dL (1.6-2.6)
[2020-04-06 16:59] LABS: Thyroid Stimulating Hormone 2.87 uIU/mL (0.32-4.0)
--- NOTE | 2020-04-06 17:19 | PC.NURSE ---
Cardiology consult order fulfilled by this US by notifying Jeremy Gutierrez through [email or web address] @[id number] on 04/06/2020
--- NOTE | 2020-04-06 23:39 | PC.NURSE ---
Pt ambulated to bathroom with this RN standby assist. Pt returned to stretcher, reports feeling very cold. Pt provided with warm blankets, VS assessed, pt afebrile. Pt medicated per MAR with cardizem. Pt offers no complaints/concerns/requests at this time. Stretcher low locked position, rails raised, call horowitz within reach.
[2020-04-07] VITALS (13 sets, daily range): BP systolic 102–127; BP diastolic 49–69; PULSE 76–126; RESP 16–26; TEMP 36–37.1; O2SAT 91–95; BMI 31.2
[2020-04-07 01:46] LABS: Glucose Urine UA NEG (NEG); Leukocyte Esterase Urine NEG (NEG); Nitrite Urine NEG (NEG); Specific Gravity - Urine 1.025 (1.005-1.025); Urine Blood 1+ (NEG); Urine Ketones 15 MG/DL (NEG); Urine Protein 1+ MG/DL (NEG-TRACE)
[2020-04-07 01:47] LABS: Appearance Urine CLEAR; Color Urine DARK YELLOW
[2020-04-07 02:03] LABS: Mucus Urine 2+ /LPF; RBC Urine 0-2 /HPF (0); Squamous Epithelial Cell Urine TRACE /LPF; WBC Urine 0-2 /HPF (0-4)
--- NOTE | 2020-04-07 02:09 | PC.NURSE ---
Pt ambulated to bathroom with this RN, returned to stretcher, reported fatigue. Pt placed on monitor, noted to be 89% on RA. This RN applied NC at 1LPM with good effect. Pt maintaining O2 sat at 94% on 1LPM. Pt resting comfortably on stretcher. Pt to receive PO meds late d/t unexpected orders placed at 0116 for daily meds.
[2020-04-07] MEDS: 0.9 % Sodium Chloride Flush 3 ML SYRINGE IVFLUSH ×4 (02:56→20:44)
[2020-04-07] MEDS: Rivaroxaban 20 MG TABLET PO (02:57)
[2020-04-07] MEDS: dilTIAZem HCL 30 MG TABLET PO ×4 (06:53→23:22)
[2020-04-07 06:56] LABS: Hematocrit 38.7 % (37-47); Hemoglobin 12.9 g/dl (12.0-16.0); Imm Gran Abs Auto 0.02 X10*3/uL (0.00-0.03); Imm Gran Pct Auto 0.5 % (0.0-0.4); Lymphocytes Absolute Auto 0.6 X10*3/uL (1.2-4.9); Lymphocytes Percent Auto 14.5 % (20-40); MANUAL DIFF FLAG SCAN; Mean Corpuscular HGB Conc 33.3 g/dl (31.0-35.0); Mean Corpuscular Hemoglobin 30.1 pg (27.0-33.0); Mean Corpuscular Volume 90.4 fL (80-98); Monocytes Percent Auto 23.6 % (2-11); Neutrophils Absolute Auto 2.7 X10*3/uL (2.0-8.3); Neutrophils Percent Auto 61.4 % (45-73); Platelet Count 172 X10*3/uL (160-400); Red Blood Count 4.28 X10*6/uL (4.20-5.50); Red Cell Distribution Width 12.5 % (11.0-16.0); SCAN SMEAR FLAG 1; White Blood Count 4.3 X10*3/uL (4.8-10.8)
--- NOTE | 2020-04-07 07:29 | PC.NURSE ---
report taken from Romain RN. pt resting on stretcher. no distress at this time. vitals updated, stable. a fib on tele. pt waiting for bed assignment for admission.
[2020-04-07 07:46] LABS: SLIDE REVIEW VERIFIED
[2020-04-07 08:17] LABS: Anion Gap 15 (12-20); Blood Urea Nitrogen 18 mg/dL (9-16); Calcium 7.9 mg/dL (8.4-10.2); Carbon Dioxide 27 mmol/L (22-29); Chloride 101 mmol/L (96-108); Creatinine Clr Calc Pharmacy 63.2; Estimated Glomerular Filt Rate > 60; Glucose Random 119 mg/dL (60-115); Potassium 3.3 mmol/L (3.3-5.1); Sodium 140 mmol/L (135-145)
[2020-04-07] MEDS: dexAMETHasone 2 MG TABLET 6 MG PO (08:42)
[2020-04-07] MEDS: Multivitamin TABLET 1 TAB PO (08:42)
--- NOTE | 2020-04-07 11:50 | PM.CNCAR ---
History of Present Illness History of Present Illness Date of Service: 04/07/20 [facility] reason: atrial fibrillation Chief complaint: new onset atrial fibrillation Narrative: Pleasant 79-year-old female who is here with COVID-19 infection and was found to have atrial fibrillation with rapid ventricular response. She originally presented with chills, cough and sneezing on Wednesday and had COVID testing done. She was discharged home with antibiotics and dexamethasone. She said she continued to have chills at home and decided to come back to the emergency department. This time she was noticed to have AFib with RVR. She had no palpitations. She denied any chest discomfort or worsening shortness of breath. She has been fatigued for many days which was probably due to COVID-19 infection. Review of Systems Review of Systems: Fatigue, cough, sneezing Yes all other systems are reviewed and are negative [facility] Past Medical History Medical History (Updated 04/06/20 @ 16:02 by CRISTINA Adam) HLD (hyperlipidemia) Hypertension Functional capacity: independent ambulation Family History Family History Father Stroke Mother Emphysema lung Family history: reviewed and not pertinent Surgical History Surgical History H/O rectal polypectomy History of breast lump/mass excision History of cataract surgery History of section History of hysterectomy History of melanoma excision Social History Social History (Updated 04/06/20 @ 16:03 by CRISTINA Adam) Household Members: Family Alcohol intake: current Alcohol intake frequency: a few times a week Smoking Status: Never smoker Use of substances other than those prescribed or required for medical reasons: No Advance Directives: No Advance Directives Information Provided: No Meds Allergies Allergy/AdvReac Type Severity Reaction Status Date / Time ciprofloxacin [From Cipro] Allergy Mild DIARRHEA,CR Verified 04/05/20 11:30 AMPING clarithromycin [From Biaxin] Allergy Mild DIARRHEA,CR Verified 04/05/20 11:30 AMPING AKI Inhibitors Allergy Unknown Unknown Verified 04/05/20 11:30 indomethacin [From INDOCIN] Allergy Unknown DIZZY Verified 04/05/20 11:30 lisinopril [LISINOPRIL] Allergy Unknown DIZZY Verified 04/05/20 11:30 Home Medications Medication Instructions Recorded Confirmed Type aspirin 81 mg PO DAILY 04/06/20 04/06/20 History cefuroxime axetil 500 mg PO BID 04/06/20 04/06/20 History dexamethasone 4 mg PO DAILY 04/06/20 04/06/20 History doxycycline hyclate 100 mg PO BID 04/06/20 04/06/20 History meclizine 25 mg PO DAILY PRN 04/06/20 04/06/20 History multivitamin 1 tab PO DAILY 04/06/20 04/06/20 History Physical Exam Vital Signs: Vital Signs: Last Vital Signs Temp 98.8 F 04/07/20 07:27 Pulse 98 04/07/20 07:27 Resp 20 04/07/20 07:27 BP 105/58 L 04/07/20 07:27 Pulse Ox 95 04/07/20 07:27 Body Mass Index 31.4 GENERAL APPEARANCE: in no acute distress, well developed, well nourished. HEENT: unremarkable. HEAD: normocephalic, atraumatic. NECK/THYROID: no carotid bruit, no jugular venous distention. SKIN: no suspicious lesions, warm and dry. HEART: no murmurs, irregularly irregular rhythm, S1, S2 normal. LUNGS: clear to auscultation bilaterally. ABDOMEN: normal, bowel sounds present, soft, nontender, nondistended. EXTREMITIES: no clubbing, cyanosis, or edema. PERIPHERAL PULSES: equal. NEUROLOGIC: nonfocal, alert and oriented. PSYCH: mood/affect full range. Results Labs and Meds Result diagrams: 04/07/20 06:50 04/07/20 06:50 Lab results: Laboratory Results - last 24 hr 04/06/20 04/06/20 04/06/20 12:33 12:33 12:33 WBC 4.1 L RBC 4.77 Hgb 14.4 Hct 44.2 MCV 92.7 MCH 30.2 MCHC 32.6 RDW 12.3 Plt Count 166 MPV 12.0 Immature Gran % (Auto) 0.7 H Neut % (Auto) 69.3 Lymph % (Auto) 13.4 L [place] % (Auto) 16.6 H Eos % (Auto) 0.0 Baso % (Auto) 0.0 Lymph # (Auto) 0.6 L [place] # (Auto) 0.7 Eos # (Auto) 0.0 Baso # (Auto) 0.0 Abs Immat Gran (auto) 0.03 Absolute Neuts (auto) 2.8 Absolute Nucleated RBC 0.000 Nucleated RBC % (auto) 0.0 Smear Tech's Comments VERIFIED Sodium 136 Potassium 4.7 D Chloride 94 L Carbon Dioxide 27 Anion Gap 20 BUN 21 H Creatinine 1.03 Estim Creat Clear Calc 41.7 Estimated GFR 52 Random Glucose 148 H Lactic Acid 2.1 H* Lactic Acid Fup @ 2Hr Calcium 8.5 Magnesium 1.9 Total Bilirubin 0.5 Direct Bilirubin < 0.2 AST 65 H ALT 34 H Alkaline Phosphatase 58 B-Natriuretic Peptide Total Protein 8.1 H Albumin 3.8 Lipase 62 TSH 2.87 Urine Color Urine Appearance Urine pH Ur Specific [place] Urine Protein Urine Glucose (UA) Urine Ketones Urine Blood Urine Nitrite Ur Leukocyte Esterase Urine RBC Urine WBC Ur Squamous Epith Cells Urine Bacteria Hyaline Casts Granular Casts Urine Mucus 04/06/20 04/06/20 04/07/20 12:33 15:44 01:36 WBC RBC Hgb Hct MCV MCH MCHC RDW Plt Count MPV Immature Gran % (Auto) Neut % (Auto) Lymph % (Auto) [place] % (Auto) Eos % (Auto) Baso % (Auto) Lymph # (Auto) [place] # (Auto) Eos # (Auto) Baso # (Auto) Abs Immat Gran (auto) Absolute Neuts (auto) Absolute Nucleated RBC Nucleated RBC % (auto) Smear Tech's Comments Sodium Potassium Chloride Carbon Dioxide Anion Gap BUN Creatinine Estim Creat Clear Calc Estimated GFR Random Glucose Lactic Acid Lactic Acid Fup @ 2Hr 0.8 Calcium Magnesium Total Bilirubin Direct Bilirubin AST ALT Alkaline Phosphatase B-Natriuretic Peptide 131 H Total Protein Albumin Lipase TSH Urine Color DARK YELLOW Urine Appearance CLEAR Urine pH 6.0 Ur Specific [place] 1.025 Urine Protein 1+ H Urine Glucose (UA) NEG Urine Ketones 15 Urine Blood 1+ H Urine Nitrite NEG Ur Leukocyte Esterase NEG Urine RBC 0-2 Urine WBC 0-2 Ur Squamous Epith Cells TRACE Urine Bacteria NONE Hyaline Casts 5-9 Granular Casts 1-4 Urine Mucus 2+ 04/07/20 04/07/20 06:50 06:50 WBC 4.3 L RBC 4.28 Hgb 12.9 Hct 38.7 MCV 90.4 MCH 30.1 MCHC 33.3 RDW 12.5 Plt Count 172 MPV 11.0 Immature Gran % (Auto) 0.5 H Neut % (Auto) 61.4 Lymph % (Auto) 14.5 L [place] % (Auto) 23.6 H Eos % (Auto) 0.0 Baso % (Auto) 0.0 Lymph # (Auto) 0.6 L [place] # (Auto) 1.0 Eos # (Auto) 0.0 Baso # (Auto) 0.0 Abs Immat Gran (auto) 0.02 Absolute Neuts (auto) 2.7 Absolute Nucleated RBC 0.000 Nucleated RBC % (auto) 0.0 Smear Tech's Comments VERIFIED Sodium 140 Potassium 3.3 D Chloride 101 Carbon Dioxide 27 Anion Gap 15 BUN 18 H Creatinine 0.68 Estim Creat Clear Calc 63.2 Estimated GFR > 60 Random Glucose 119 H Lactic Acid Lactic Acid Fup @ 2Hr Calcium 7.9 L D Magnesium Total Bilirubin Direct Bilirubin AST ALT Alkaline Phosphatase B-Natriuretic Peptide Total Protein Albumin Lipase TSH Urine Color Urine Appearance Urine pH Ur Specific [place] Urine Protein Urine Glucose (UA) Urine Ketones Urine Blood Urine Nitrite Ur Leukocyte Esterase Urine RBC Urine WBC Ur Squamous Epith Cells Urine Bacteria Hyaline Casts Granular Casts Urine Mucus Imaging Radiologist's impression: Impressions Chest X-Ray 04/06/20 11:42 IMPRESSION: Atypical multilobar pneumonia. Assessment and Plan (1) Pneumonia due to 2019-nCoV: Status: Acute (2) Hypertension: Problem details: cont same meds Status: Acute (3) Atrial fibrillation, new onset: Status: Acute Pleasant 79-year-old female with COVID-19 infection and new diagnosis of atrial fibrillation with rapid ventricular response. She has background of hypertension. Her chads Vasc score is 4. She has been appropriately started on Xarelto. She was started on p.o. Cardizem and has been doing well from rate control point of view. I think if she tolerates this then potentially stop the atenolol and changing her to Cardizem CD 1 20 mg once a day tomorrow. Depending on her blood pressure her hydrochlorothiazide can be resumed. If stable she can be discharged home and we will arrange follow-up for her in our office. I would favor doing further workup as outpatient including echocardiography. Thank you for allowing me to participate in the care of your patient. Please feel free to contact me if you have any questions.
--- NOTE | 2020-04-07 14:20 | HO.PM.IMPN ---
Subjective Subjective Date of Service: 04/08/20 Interval History: Seen f/u follow-up for new onset AFib failure in the setting of recent COVID-19 infection. She has no respiratory symptoms at this time. Heart rate is controlled on p.o. Cardizem and anticoagulated with Xarelto. Review of Systems Gen: no fever Resp: no sob, no cough CV: no chest, no RABAGO, no leg edema GI: No n/v, no abd pain Neuro: No confusion Physical Exam Vital Signs: Vital Signs: Last Vital Signs Temp 97.6 F 04/07/20 14:02 Pulse 100 04/07/20 14:11 Resp 20 04/07/20 14:02 BP 108/55 L 04/07/20 14:11 Pulse Ox 93 04/07/20 14:02 Body Mass Index 31.2 Const: Orientation/consciousness: patient oriented x3 Eyes: Sclerae: sclerae normal Chest: Chest palpation & inspection: normal inspection of the chest Resp: Effort & Inspection: normal respiratory effort and no respiratory distress Auscultation: clear to auscultation bilaterally Cardio: Rate: tachycardic Rhythm: abnormal rhythm irregularly irregular GI: Palpation (GI): Soft to palpation and nontender Skin: General skin exam: no rashes or lesions noted Neuro: General: patient oriented x3 Cranial nerves: Yes CN's II-XII intact bilaterally and Yes Bilaterally intact EOM present Extrem: General: Yes normal to inspection Objective Data Current Medications Generic Name Dose Route Start Last Admin Trade Name Freq PRN Reason Stop Dose Admin Acetaminophen 650 mg 04/07/20 01:16 Acetaminophen 325 Mg Tablet PO Q6H PRN Pain, Mild (Pain Scale 1-3) Cefuroxime Axetil 500 mg 04/07/20 18:00 Cefuroxime Axetil 500 Mg Tablet PO Q12H EDI Dexamethasone 6 mg 04/08/20 09:00 Dexamethasone 6 Mg Tablet PO DAILY EDI Diltiazem HCl 30 mg 04/07/20 00:00 04/07/20 14:11 Diltiazem Hcl 30 Mg Tablet PO 30 mg Q6H [facility] Administration Protocol Docusate Sodium 100 mg 04/07/20 01:16 Docusate Sodium 100 Mg Capsule PO DAILY PRN Constipation Meclizine HCl 25 mg 04/07/20 01:16 Meclizine Hcl 25 Mg Tablet PO DAILY PRN Dizziness Multivitamins/Vitamin C 1 tab 04/07/20 09:00 04/07/20 08:42 Multivitamin Tablet PO 1 tab DAILY EDI Administration Ondansetron HCl 4 mg 04/07/20 01:16 Ondansetron Hcl 4 Mg/2 Ml Vial IVPUSH Q8H PRN Nausea and Vomiting Pravastatin Sodium 40 mg 04/07/20 21:00 Pravastatin Sodium 40 Mg Tablet PO BEDTIME EDI Rivaroxaban 15 mg 04/08/20 09:00 Rivaroxaban 15 Mg Tablet PO DAILY EDI Sodium Chloride 3 ml 04/07/20 01:16 04/07/20 07:26 0.9 % Sodium Chloride Flush 3 Ml Syringe IVFLUSH 3 ml QSHIFT EDI Administration Labs CBC & Chem 7: 04/08/20 09:38 04/08/20 09:38 Assessment and Plan (1) Atrial fibrillation, new onset: Status: Acute (2) Pneumonia due to 2019-nCoV: Status: Acute Assessment and Plan: 79-year-old white female with a history of hypertension, dyslipidemia, diagnosed with coronavirus yesterday who presents to the emergency department was chills found to have new onset atrial fibrillation New onset atrial fibrillation, [id number] score 4,xarelto 15 mg daily cardizem 30q6h, change to PO to 120 Cd by morning echo tomorrow or can defer to outpatient according to cardiology HTN--on HCTZ and Atenolol both on hold due to borderline BP, Continue cardizem as above Pneumonia secondary to coronavirus--No hypoxia, not requiring supplemental oxygen Continue medication as prescribed in the ED including cefuroxime, doxycycline, dexamethasone HLD--Continue statin DVT prophylaxis-xarelto Code status-full code
[2020-04-07] MEDS: Pravastatin Sodium 40 MG TABLET PO (20:44)
[2020-04-08] VITALS (10 sets, daily range): BP systolic 109–143; BP diastolic 66–90; PULSE 85–105; RESP 18–26; TEMP 36.4–37; O2SAT 90–95; BMI 31.2
[2020-04-08] MEDS: dilTIAZem HCL 30 MG TABLET PO (05:27)
--- NOTE | 2020-04-08 06:03 | PC.NURSE ---
Pt here with new afib, rate controlled. Pt noted to have increasing anxiety and restlessness, HR increased and sustaining above 160. Pt assessed and asymptomatic. Dr. Thibodeaux notified.
--- NOTE | 2020-04-08 09:40 | MHC.CM.PN ---
CM was unable to reach Patient by Phone (Covid Unit) so CM spoke with /HCP/Sam @ [phone]. Patient lives in a house with her & Adult Son and she is functionally independent. Goal for dc is for Patient to return home and CM has initiated and will follow for dc planning. IMM addressed with Sam and the original will be mailed certified letter to him and a copy will be placed on the chart. PCP is Dr. Michael Edmond.
[2020-04-08] MEDS: Rivaroxaban 15 MG TABLET PO (10:13)
[2020-04-08] MEDS: Multivitamin TABLET 1 TAB PO (10:13)
[2020-04-08] MEDS: dexAMETHasone 6 MG TABLET PO (10:13)
[2020-04-08] MEDS: 0.9 % Sodium Chloride Flush 3 ML SYRINGE IVFLUSH ×3 (10:13→23:38)
[2020-04-08 10:15] LABS: Basophils Percent Auto 0.1 % (0-2); Hematocrit 41.3 % (37-47); Hemoglobin 13.4 g/dl (12.0-16.0); Imm Gran Abs Auto 0.06 X10*3/uL (0.00-0.03); Imm Gran Pct Auto 0.6 % (0.0-0.4); Lymphocytes Absolute Auto 0.6 X10*3/uL (1.2-4.9); Lymphocytes Percent Auto 6.7 % (20-40); MANUAL DIFF FLAG SCAN; Mean Corpuscular HGB Conc 32.4 g/dl (31.0-35.0); Mean Corpuscular Hemoglobin 29.8 pg (27.0-33.0); Mean Platelet Volume 11.3 fL (9.4-12.3); Monocytes Absolute Auto 1.7 X10*3/uL (0.1-1.2); Monocytes Percent Auto 18.5 % (2-11); Neutrophils Absolute Auto 6.9 X10*3/uL (2.0-8.3); Neutrophils Percent Auto 74.1 % (45-73); Platelet Count 254 X10*3/uL (160-400); Red Blood Count 4.49 X10*6/uL (4.20-5.50); Red Cell Distribution Width 12.6 % (11.0-16.0); SCAN SMEAR FLAG 1; White Blood Count 9.3 X10*3/uL (4.8-10.8)
[2020-04-08 10:29] LABS: D Dimer 579 NG/ML
[2020-04-08 10:38] LABS: Alanine Aminotransferase 38 U/L (0-31); Albumin Level 3.7 g/dL (3.5-5.0); Alkaline Phosphatase 63 U/L (39-117); Anion Gap 14 (12-20); Aspartate Amino Transferase 40 U/L (5-31); Bilirubin Total 0.9 mg/dL (0.0-1.0); Blood Urea Nitrogen 21 mg/dL (9-16); C Reactive Protein 12.99 mg/dL (< or = 0.50); Calcium 8.7 mg/dL (8.4-10.2); Carbon Dioxide 32 mmol/L (22-29); Chloride 98 mmol/L (96-108); Creatinine Clr Calc Pharmacy 57.2; Estimated Glomerular Filt Rate > 60; Glucose Random 149 mg/dL (60-115); Lactate Dehydrogenase 354 U/L (122-220); Potassium 3.4 mmol/L (3.3-5.1); Sodium 141 mmol/L (135-145); Total Protein 6.8 g/dL (6.5-8.0)
[2020-04-08 10:46] LABS: SLIDE REVIEW VERIFIED
[2020-04-08 10:59] LABS: Ferritin 884 ng/mL (10-250)
--- NOTE | 2020-04-08 11:03 | PM.PNCARD ---
Subjective Subjective Date of Service: 04/08/20 Principal diagnosis: Atrial fibrillation Interval history: Patient remains in atrial fibrillation. Somewhat agitated and confused. Rate is borderline elevated denies any palpitations. Review of Systems Review of Systems Yes Unobtainable due to mental status Reports confusion Psychiatric: Reports confusion Physical Exam Vital Signs: Last Vital Signs Temp 97.5 F 04/08/20 04:00 Pulse 85 04/08/20 05:27 Resp 26 H 04/08/20 04:00 BP 121/77 04/08/20 05:27 Pulse Ox 94 04/08/20 08:00 Body Mass Index 31.2 Const General: no acute distress and confusion Orientation/consciousness: confusion Resp Effort & Inspection: decreased respiratory effort Auscultation: no rales and no wheezes Cardio Rate: tachycardic Rhythm: abnormal rhythm irregularly irregular Heart sounds: S1 normal heart sound present and S2 normal heart sound present Skin General skin exam: no rashes or lesions noted Neuro General: confusion Results Labs and Meds Result diagrams: 04/08/20 09:38 04/08/20 09:38 Lab results: Laboratory Results - last 24 hr 04/08/20 04/08/20 04/08/20 09:38 09:38 09:38 WBC 9.3 RBC 4.49 Hgb 13.4 Hct 41.3 MCV 92.0 MCH 29.8 MCHC 32.4 RDW 12.6 Plt Count 254 D MPV 11.3 Immature Gran % (Auto) 0.6 H Neut % (Auto) 74.1 H Lymph % (Auto) 6.7 L [place] % (Auto) 18.5 H Eos % (Auto) 0.0 Baso % (Auto) 0.1 Lymph # (Auto) 0.6 L [place] # (Auto) 1.7 H Eos # (Auto) 0.0 Baso # (Auto) 0.0 Abs Immat Gran (auto) 0.06 H Absolute Neuts (auto) 6.9 Absolute Nucleated RBC 0.000 Nucleated RBC % (auto) 0.0 Smear Tech's Comments VERIFIED D-Dimer 579 Sodium 141 Potassium 3.4 Chloride 98 Carbon Dioxide 32 H Anion Gap 14 BUN 21 H Creatinine 0.75 Estim Creat Clear Calc 57.2 Estimated GFR > 60 Random Glucose 149 H Calcium 8.7 D Magnesium 2.0 Ferritin 884 H Total Bilirubin 0.9 AST 40 H ALT 38 H Alkaline Phosphatase 63 Lactate Dehydrogenase 354 H C-Reactive Protein 12.99 H Total Protein 6.8 Albumin 3.7 Progress Note: A&P Assessment and plan (1) Atrial fibrillation, new onset: Status: Acute Assessment and Plan: Atrial fibrillation continued elevated rate. Increase Cardizem to 30 mg q.6. If patient is not taking p.o. meds can switch to IV Cardizem therapy. Continue full oral anticoagulation, currently on Xarelto should be at 20 mg daily. Echocardiogram can be pursued as an outpatient. Will sign of the case unless rate becomes difficult control. (2) Pneumonia due to 2019-nCoV: Status: Acute Assessment and Plan: COVID-19 pneumonia being managed by hospitalist team. Fall Risk Details Current Medications: Current Medications Generic Name Dose Route Start Last Admin Trade Name Freq PRN Reason Stop Dose Admin Acetaminophen 650 mg 04/07/20 01:16 Acetaminophen 325 Mg Tablet PO Q6H PRN Pain, Mild (Pain Scale 1-3) Cefuroxime Axetil 500 mg 04/07/20 18:00 04/08/20 05:28 Cefuroxime Axetil 500 Mg Tablet PO 500 mg Q12H EDI Administration Dexamethasone 6 mg 04/08/20 09:00 04/08/20 10:13 Dexamethasone 6 Mg Tablet PO 6 mg DAILY EDI Administration Diltiazem HCl 60 mg 04/08/20 11:00 Diltiazem Hcl 30 Mg Tablet PO Q6H EDI Protocol Docusate Sodium 100 mg 04/07/20 01:16 Docusate Sodium 100 Mg Capsule PO DAILY PRN Constipation Meclizine HCl 25 mg 04/07/20 01:16 Meclizine Hcl 25 Mg Tablet PO DAILY PRN Dizziness Multivitamins/Vitamin C 1 tab 04/07/20 09:00 04/08/20 10:13 Multivitamin Tablet PO 1 tab DAILY EDI Administration Ondansetron HCl 4 mg 04/07/20 01:16 Ondansetron Hcl 4 Mg/2 Ml Vial IVPUSH Q8H PRN Nausea and Vomiting Pravastatin Sodium 40 mg 04/07/20 21:00 04/07/20 20:44 Pravastatin Sodium 40 Mg Tablet PO 40 mg BEDTIME EDI Administration Rivaroxaban 20 mg 04/08/20 10:45 Rivaroxaban 15 Mg Tablet PO DAILY EDI Sodium Chloride 3 ml 04/07/20 01:16 04/08/20 10:13 0.9 % Sodium Chloride Flush 3 Ml Syringe IVFLUSH 3 ml QSHIFT EDI Administration Time Spent With Patient Time: Total time spent is greater than 50% in coordination of care (as documented) at patient's floor/unit and/or counseling patient: Time with patient: 15 - 24 minutes
[2020-04-08] MEDS: dilTIAZem HCL 30 MG TABLET 60 MG PO ×3 (11:21→23:29)
--- NOTE | 2020-04-08 12:56 | HO.PM.IMPN ---
Subjective Subjective Date of Service: 04/08/20 Interval History: Tried to leave this morning. Switched to private room on the 4th floor. States no dyspnea or palpitations. No fever. No cough or dyspnea. Physical Exam Vital Signs: Vital Signs: Last Vital Signs Temp 97.7 F 04/08/20 11:27 Pulse 105 H 04/08/20 11:27 Resp 18 04/08/20 11:27 BP 139/90 H 04/08/20 11:27 Pulse Ox 95 04/08/20 11:27 Body Mass Index 31.2 Gen: in no acute distress HEENT: sclera anicteric, moist mucus membranes Neck: supple Lungs: no respiratory distress, auscultation deferred due to COVID-19 Heart: irregularly irregular, rapid Abd: soft, non-tender, non-distended Ext: no cyanosis, clubbing, or edema Skin: warm/well-perfused Neuro: midly confused by alert and oriented x3, no focal findings Psych: appropriate affect Objective Data Current Medications Generic Name Dose Route Start Last Admin Trade Name Jigneshq PRN Reason Stop Dose Admin Acetaminophen 650 mg 04/07/20 01:16 Acetaminophen 325 Mg Tablet PO Q6H PRN Pain, Mild (Pain Scale 1-3) Cefuroxime Axetil 500 mg 04/07/20 18:00 04/08/20 05:28 Cefuroxime Axetil 500 Mg Tablet PO 500 mg Q12H EDI Administration Dexamethasone 6 mg 04/08/20 09:00 04/08/20 10:13 Dexamethasone 6 Mg Tablet PO 6 mg DAILY EDI Administration Diltiazem HCl 60 mg 04/08/20 11:00 04/08/20 11:21 Diltiazem Hcl 30 Mg Tablet PO 60 mg Q6H EDI Administration Protocol Docusate Sodium 100 mg 04/07/20 01:16 Docusate Sodium 100 Mg Capsule PO DAILY PRN Constipation Meclizine HCl 25 mg 04/07/20 01:16 Meclizine Hcl 25 Mg Tablet PO DAILY PRN Dizziness Multivitamins/Vitamin C 1 tab 04/07/20 09:00 04/08/20 10:13 Multivitamin Tablet PO 1 tab DAILY EDI Administration Ondansetron HCl 4 mg 04/07/20 01:16 Ondansetron Hcl 4 Mg/2 Ml Vial IVPUSH Q8H PRN Nausea and Vomiting Pravastatin Sodium 40 mg 04/07/20 21:00 04/07/20 20:44 Pravastatin Sodium 40 Mg Tablet PO 40 mg BEDTIME [facility] Administration Rivaroxaban 20 mg 04/08/20 10:45 Rivaroxaban 15 Mg Tablet PO DAILY [facility] Sodium Chloride 3 ml 04/07/20 01:16 04/08/20 10:13 0.9 % Sodium Chloride Flush 3 Ml Syringe IVFLUSH 3 ml QSHIFT [facility] Administration Labs CBC & Chem 7: 04/08/20 09:38 04/08/20 09:38 Labs: Laboratory Results - last 24 hr 04/08/20 04/08/20 04/08/20 09:38 09:38 09:38 WBC 9.3 RBC 4.49 Hgb 13.4 Hct 41.3 MCV 92.0 MCH 29.8 MCHC 32.4 RDW 12.6 Plt Count 254 D MPV 11.3 Immature Gran % (Auto) 0.6 H Neut % (Auto) 74.1 H Lymph % (Auto) 6.7 L [place] % (Auto) 18.5 H Eos % (Auto) 0.0 Baso % (Auto) 0.1 Lymph # (Auto) 0.6 L [place] # (Auto) 1.7 H Eos # (Auto) 0.0 Baso # (Auto) 0.0 Abs Immat Gran (auto) 0.06 H Absolute Neuts (auto) 6.9 Absolute Nucleated RBC 0.000 Nucleated RBC % (auto) 0.0 Smear Tech's Comments VERIFIED D-Dimer 579 Sodium 141 Potassium 3.4 Chloride 98 Carbon Dioxide 32 H Anion Gap 14 BUN 21 H Creatinine 0.75 Estim Creat Clear Calc 57.2 Estimated GFR > 60 Random Glucose 149 H Calcium 8.7 D Magnesium 2.0 Ferritin 884 H Total Bilirubin 0.9 AST 40 H ALT 38 H Alkaline Phosphatase 63 Lactate Dehydrogenase 354 H C-Reactive Protein 12.99 H Total Protein 6.8 Albumin 3.7 Microbiology Microbiology Results: Microbiology 04/06/20 12:59 Blood - Venous Blood Culture - Preliminary No growth after 24 hours. 04/06/20 12:35 Blood - Venous Blood Culture - Preliminary No growth after 24 hours. Assessment and Plan (1) Atrial fibrillation, new onset: Status: Acute (2) Pneumonia due to 2019-nCoV: Status: Acute Assessment and Plan: hospital d#3 79yo F with HTN diagnosed with COVID-19 04/05/20 after 2 wk of cough, admitted for new-onset AF # new-onset AF - increase diltiazem to 60mg q6h - [id number] 4, on rivaroxaban 20 mg daily - cardiology following, has appt with Dr Gutierrez 04/29, outpt TTE - give oral K to try to replete to 4 # HTN - holding atenolol + HCTZ due to soft BP and to allow BP room for rate control agent # COVID-19 PNA - on dexamethasone d#4 started in ED 04/05/20 although she was not hypoxic then, but was hypoxic overnight with SaO2 90% on RA so will continue - check PCT, if low will d/c cefuroxime + doxycycline # acute encephalopathy - likely due to COVID-19 and hospitalization; no underlying dementia or cognitivie impairment # dyslipidemia - continue statin # VTE ppx - continue rivaroxaban I updated the pt's Sam by phone, [phone]
[2020-04-08] MEDS: Potassium Chloride ER 20 MEQ TAB.ER.PRT 40 MEQ PO (13:45)
[2020-04-08 14:11] LABS: Procalcitonin 0.63 ng/mL
--- NOTE | 2020-04-08 15:01 | PC.NURSE ---
Pt appears to becoming more confused and paranoid. Pt hesitant to take meds, not trusting MD/staff. Believes MD was trying to sell her something when he came and saw her this AM. Pt also having visual hallucination; water sprinkler on getting floor/bed all wet, black and white dust coming from ceiling, bajwa on the ceiling. Pt alert and oriented x3. Dr. Alex made aware. No new orders at this time.
--- NOTE | 2020-04-08 15:05 | PC.NURSE ---
Pt states she has had 6 episodes of diarrhea today[address] Dr[address] Alex made aware. No new orders.
[2020-04-08] MEDS: Pravastatin Sodium 40 MG TABLET PO (20:01)
[2020-04-09] VITALS (7 sets, daily range): BP systolic 114–150; BP diastolic 72–96; PULSE 88–135; RESP 18–20; TEMP 36.5–36.9; O2SAT 93–96
--- NOTE | 2020-04-09 04:52 | PC.NURSE ---
Addendum entered by Tasneem Winston RN 04/09/20 07:21: 0600; Patient allowed this RN to place the cardiac rehabilitation program director back on. Original Note: [id number]; Patient alert to self and time, confused to place and situation. Patient easily agitated, attempted to leave room and into the hallway multiple times, redirected but continued with same behavior. At times, patient is resistive to care, suspicious of staff and when ambulating and agitated, patient's heart rate jumps up to 150's, (patient here with new onset afib). When patient is settled and calm, heart rate ranges between 85-100. Hospitalist made aware of patient's heart rate and behavior. 2345; Nursing supervisor paper machine at bedside, redirecting patient. Telesitter initiated for patient safety. 0300; Patient was moved closer to nursing station to Room 479-1, due to patient attempting to leave room and looking for an exit. 1:[address] for patient safety. Patient also ripped off the cardiac rehabilitation program director, multiple staff attempted to educated patient on importance of monitoring heart rate, patient continues to refuse to place the cardiac rehabilitation program director back on, nursing supervisor paper machine made aware. Hospitalist made aware.
[2020-04-09] MEDS: dilTIAZem HCL 30 MG TABLET 60 MG PO ×3 (06:10→17:20)
[2020-04-09] MEDS: 0.9 % Sodium Chloride Flush 3 ML SYRINGE IVFLUSH ×3 (07:55→20:52)
[2020-04-09] MEDS: Multivitamin TABLET 1 TAB PO (07:55)
[2020-04-09] MEDS: dexAMETHasone 6 MG TABLET PO (07:56)
[2020-04-09] MEDS: Rivaroxaban 15 MG TABLET 20 MG PO (07:56)
[2020-04-09] MEDS: Potassium Chloride ER 20 MEQ TAB.ER.PRT 40 MEQ PO (07:56)
[2020-04-09] MEDS: traZODone HCL 25 MG HALFTAB PO (08:07)
--- NOTE | 2020-04-09 12:00 | HO.PM.IMPN ---
Subjective Subjective Date of Service: 04/09/20 Interval History: confused/disoriented this AM was very agitated and was trying to leave; agitation resolved after trazodone given unable to obtain reliable ROS due to confusion Physical Exam Vital Signs: Vital Signs: Last Vital Signs Temp 97.7 F 04/09/20 11:49 Pulse 94 04/09/20 11:49 Resp 20 04/09/20 11:49 BP 114/73 04/09/20 11:49 Pulse Ox 96 04/09/20 11:49 Body Mass Index 31.2 Gen: in no acute distress HEENT: sclera anicteric, moist mucus membranes Neck: supple Lungs: no respiratory distress, auscultation deferred due to COVID-19 Heart: irregularly irregular, normal rate Abd: soft, non-tender, non-distended Ext: no cyanosis, clubbing, or edema Skin: warm/well-perfused Neuro: disoriented, rambling speech Psych: impaired insight Objective Data Current Medications Generic Name Dose Route Start Last Admin Trade Name Jigneshq PRN Reason Stop Dose Admin Acetaminophen 650 mg 04/07/20 01:16 Acetaminophen 325 Mg Tablet PO Q6H PRN Pain, Mild (Pain Scale 1-3) Cefuroxime Axetil 500 mg 04/07/20 18:00 04/09/20 06:10 Cefuroxime Axetil 500 Mg Tablet PO 500 mg Q12H EDI Administration Dexamethasone 6 mg 04/08/20 09:00 04/09/20 07:56 Dexamethasone 6 Mg Tablet PO 6 mg DAILY EDI Administration Diltiazem HCl 60 mg 04/08/20 11:00 04/09/20 06:10 Diltiazem Hcl 30 Mg Tablet PO 60 mg Q6H EDI Administration Protocol Docusate Sodium 100 mg 04/07/20 01:16 Docusate Sodium 100 Mg Capsule PO DAILY PRN Constipation Doxycycline Hyclate 100 mg 04/09/20 08:00 04/09/20 08:07 Doxycycline Hyclate 100 Mg Tablet PO 100 mg Q12H EDI Administration Meclizine HCl 25 mg 04/07/20 01:16 Meclizine Hcl 25 Mg Tablet PO DAILY PRN Dizziness Melatonin 3 mg 04/09/20 21:00 Melatonin 3 Mg Tablet PO BEDTIME EDI Multivitamins/Vitamin C 1 tab 04/07/20 09:00 04/09/20 07:55 Multivitamin Tablet PO 1 tab DAILY EDI Administration Ondansetron HCl 4 mg 04/07/20 01:16 Ondansetron Hcl 4 Mg/2 Ml Vial IVPUSH Q8H PRN Nausea and Vomiting Pravastatin Sodium 40 mg 04/07/20 21:00 04/08/20 20:01 Pravastatin Sodium 40 Mg Tablet PO 40 mg BEDTIME EDI Administration Rivaroxaban 20 mg 04/08/20 10:45 04/09/20 07:56 Rivaroxaban 15 Mg Tablet PO 20 mg DAILY EDI Administration Sodium Chloride 3 ml 04/07/20 01:16 04/09/20 07:55 0.9 % Sodium Chloride Flush 3 Ml Syringe IVFLUSH 3 ml QSHIFT EDI Administration Labs CBC & Chem 7: 04/08/20 09:38 04/08/20 09:38 Microbiology Microbiology Results: Microbiology 04/06/20 12:59 Blood - Venous Blood Culture - Preliminary No growth after 48 hours. 04/06/20 12:35 Blood - Venous Blood Culture - Preliminary No growth after 48 hours. Assessment and Plan (1) Atrial fibrillation, new onset: Status: Acute (2) Pneumonia due to 2019-nCoV: Status: Acute Assessment and Plan: hospital d#4 79yo F with HTN diagnosed with COVID-19 04/05/20 after 2 wk of cough, admitted for new-onset AF # new-onset AF - rate improved on diltiazem 60 mg q6h - [id number] 4, on rivaroxaban 20 mg daily - cardiology following, has appt with Dr Gutierrez 04/29, outpt TTE # HTN - holding atenolol + HCTZ due to soft BP and to allow BP room for rate control agent # COVID-19 PNA - on dexamethasone d#5/10 started in ED 04/05/20 although she was not hypoxic then, but was briefly hypoxic 2 nights ago down to SaO2 90% but has been fine on RA since. I'm concerned more about steroid-induced delirium at this point and will d/c dexamethasone as the indication for her starting steroids was somewhat unclear - PCT >0.5 so will continue cefuroxime + doxycycline, on d#5 - recheck inflammatory markers in am # acute encephalopathy - multifactorial: COVID-19, dexamethasone, hospitalization. no underlying dementia or cognitive impairment. per pt's , she was starting to get confused while on the dexamethasone at home- will d/c it as above # dyslipidemia - continue statin # VTE ppx - continue rivaroxaban I updated the pt's Sam by phone, [phone]
[2020-04-09] MEDS: OLANZapine 10 MG VIAL 2.5 MG IM (20:03)
[2020-04-09] MEDS: LORazepam 2 MG/ML VIAL 0.5 MG IVPUSH (20:51)
[2020-04-09] MEDS: dilTIAZem HCL 50 MG/10 ML VIAL IVPUSH (20:52)
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
[2020-04-10] VITALS (9 sets, daily range): BP systolic 116–144; BP diastolic 59–79; PULSE 55–105; RESP 18–20; TEMP 36.4–37; O2SAT 94–96
--- NOTE | 2020-04-10 01:16 | CA_ITS ---
Transthoracic Echocardiogram Patient (Last, First, Middle): Binta uMñoz L Gender: Female Date of : 1940 Age: 79 Procedure Date: 04/08/2020 Procedure Type: Transthoracic Echocardiogram [place] [facility] [place]: 154.94 cm Weight: 74.84 kg BSA: 1.74 m2 Heart Rate: bpm BP: 121 / 77 mmHg School Age Teacher: HARRIET Referring MD: Martina EVANS Hydrotherapist: Elías Rodriguez MD Symptoms: new onset afib Study Quality: Good ECG Rhythm: Atrial Fibrillation Conclusions: - 1. Normal LV systolic function with mild LVH 2. Mildly dilated left atrium 3. Mild aortic stenosis and mild mitral regurgitation 4. Normal RV systolic pressure 5. No pericardial effusion Findings Left Ventricle Normal left ventricular size and systolic function. There is mildly increased left ventricular wall thickness. The visually estimated ejection fraction is between 60-65%. Diastolic function is indeterminate on the basis of available data. Right Ventricle Normal right ventricular cavity size and systolic function. Atria The left atrium is mildly dilated. There is no evidence of interatrial shunt. The right atrium is normal in size. Aortic Valve There is mild calcification of the aortic valve. There is mild thickening of the aortic valve. There is mild aortic valve stenosis. The peak aortic gradient is 16 mmHg.The mean gradient is 9 mmHg. There is mild aortic valve regurgitation. Mitral Valve There is mild anterior and posterior mitral leaflet thickening. There is mild mitral annular calcification. There is mild mitral valve regurgitation. There is no mitral valve stenosis. Pulmonic Valve The pulmonic valve was not well visualized. Tricuspid Valve Likely normal tricuspid valve structure and function. There is mild tricuspid valve regurgitation. The right ventricular systolic pressure is normal. The right ventricular systolic pressure is 29 mmHg. Normal right atrial pressure. There is no evidence of pulmonary hypertension. Great Vessels All visible segments of the aorta are normal in size. The pulmonary artery was not well visualized. Venous The inferior vena cava is normal in size and collapses greater than 50% with inspiration. Pericardium/Pleural There is no evidence of pericardial effusion. Prior Study Comparison No prior study available for comparison. Measurements 2D Linear Measurements IVSd: 1.24 0.6-0.9/0.6-1.0 cm LVIDd: 3.80 3.9-5.3/4.2-5.9 cm LVIDd Index: 2.18 2.4-3.2/2.2-3.1 cm/m2 LVIDs: 2.08 2.0-3.6 cm LVPWd: 1.22 0.7-1.1 cm Ao Root: 2.80 2.1-3.5 cm LA Diam: 3.70 2.7-3.8/3.0-4.0 cm LAIDs Index: 2.13 1.5-2.3 cm/m2 LV Mass: 198.06 67-162/88-224 g LV Mass Index: 113.83 43-95/49-115 g/m2 LVOT Diam: 1.80 3.0+(-)1.3 cm Mitral Valve MV Pk E: 1.09 MV Decel Time: 162.00 E'Lateral: 12.40 E'Medial: 10.30 E/E' Med: 10.60 E/E' Lat: 8.80 PHT: 47.00 MVA PHT: 4.68 Decel [place]: 6.83 Aortic Valve AoV Pk Randell: 1.98 AoV Mn Randell: 1.36 AoV VTI: 0.41 AoV Pk Grad: 16.00 Aov Mn Grad: 9.00 TANI Cont.VTI: 1.29 LVOT LVOT Pk Randell: 0.97 LVOT Mn Randell: 0.62 LVOT VTI: 0.21 LVOT Pk Grad: 4.00 LVOT Mn Grad: 2.00 LVOT Diam: 1.80 LVOT Area: 2.54 Diastolic Function MV Pk E: 1.09 E'Medial: 10.30 E/E' Med: 10.60 E' Laterial: 12.40 E/E' Lat: 8.80 Tricuspid Valve TR Pk Randell: 2.56 TR Pk Grad: 26.00 RA Press: 3.00 RVSP: 29.00 Great Vessels Aorta Ao Root-2D: 2.80 2.0-3.7 cm Ao Asc: 3.50 2.1-3.4 cm Pulmonary Valve PV Pk Randell: 0.99 Peak PV Grad: 4.00 Updated in Other Vendor System with Status of Final Elías Rodriguez MD electronically signed on 04/10/2020 3:55:32 PM with status of Final
[2020-04-10 06:52] LABS: Basophils Percent Auto 0.2 % (0-2); Hematocrit 35.3 % (37-47); Hemoglobin 11.7 g/dl (12.0-16.0); Imm Gran Abs Auto 0.09 X10*3/uL (0.00-0.03); Imm Gran Pct Auto 1.4 % (0.0-0.4); Lymphocytes Absolute Auto 0.9 X10*3/uL (1.2-4.9); Lymphocytes Percent Auto 14.8 % (20-40); MANUAL DIFF FLAG SCAN; Mean Corpuscular HGB Conc 33.1 g/dl (31.0-35.0); Mean Corpuscular Volume 93.6 fL (80-98); Mean Platelet Volume 10.8 fL (9.4-12.3); Monocytes Absolute Auto 0.7 X10*3/uL (0.1-1.2); Monocytes Percent Auto 10.4 % (2-11); Neutrophils Absolute Auto 4.6 X10*3/uL (2.0-8.3); Neutrophils Percent Auto 73.2 % (45-73); Platelet Count 349 X10*3/uL (160-400); Red Blood Count 3.77 X10*6/uL (4.20-5.50); Red Cell Distribution Width 13.1 % (11.0-16.0); SCAN SMEAR FLAG 1; White Blood Count 6.3 X10*3/uL (4.8-10.8)
[2020-04-10 07:19] LABS: Alanine Aminotransferase 36 U/L (0-31); Albumin Level 3.5 g/dL (3.5-5.0); Alkaline Phosphatase 57 U/L (39-117); Anion Gap 14 (12-20); Aspartate Amino Transferase 25 U/L (5-31); Bilirubin Direct 0.3 mg/dL (0.0-0.5); Bilirubin Total 0.9 mg/dL (0.0-1.0); Blood Urea Nitrogen 36 mg/dL (9-16); C Reactive Protein 5.61 mg/dL (< or = 0.50); Calcium 8.9 mg/dL (8.4-10.2); Carbon Dioxide 29 mmol/L (22-29); Chloride 104 mmol/L (96-108); Creatinine Clr Calc Pharmacy 61.3; Estimated Glomerular Filt Rate > 60; Glucose Random 153 mg/dL (60-115); Magnesium 2.4 mg/dL (1.6-2.6); Sodium 142 mmol/L (135-145); Total Protein 6.4 g/dL (6.5-8.0)
[2020-04-10 07:29] LABS: Procalcitonin 0.22 ng/mL
[2020-04-10] MEDS: Rivaroxaban 15 MG TABLET 20 MG PO (09:46)
[2020-04-10] MEDS: Multivitamin TABLET 1 TAB PO (09:47)
[2020-04-10] MEDS: 0.9 % Sodium Chloride Flush 3 ML SYRINGE IVFLUSH ×3 (09:49→23:19)
[2020-04-10 09:54] LABS: SLIDE REVIEW VERIFIED
--- NOTE | 2020-04-10 10:37 | PC.NURSE ---
PT SLEPT A BIT THIS MORNING BUT IS NOW AWAKE, ORIENTED BUT REFERS BACK TO ODD THINGS HAPPENED LAST NIGHT COOPERATED WITH MEDICATION ADMINISTRATION. DENIES PAIN OR SOB. SITTER AT BEDSIDE
[2020-04-10] MEDS: dilTIAZem HCL 30 MG TABLET 60 MG PO (11:28)
--- NOTE | 2020-04-10 12:22 | HO.PM.IMPN ---
Subjective Subjective Date of Service: 04/10/20 Interval History: oriented x3, less agitated, but still has some paranoid delusions did get 1 dose IM olanzapine last night for agitated delirium denies fever/chest pain/dyspnea/cough Physical Exam Vital Signs: Vital Signs: Last Vital Signs Temp 97.6 F 04/10/20 10:55 Pulse 88 04/10/20 10:55 Resp 18 04/10/20 10:55 BP 116/60 04/10/20 10:55 Pulse Ox 95 04/10/20 10:55 Body Mass Index 31.2 Gen: in no acute distress HEENT: sclera anicteric, moist mucus membranes Neck: supple Lungs: no respiratory distress, auscultation deferred due to COVID-19 Heart: irregularly irregular, normal rate Abd: soft, non-tender, non-distended Ext: no cyanosis, clubbing, or edema Skin: warm/well-perfused Neuro: oriented x3 but still has paranoid delusions Psych: impaired insight Objective Data Current Medications Generic Name Dose Route Start Last Admin Trade Name Jigneshq PRN Reason Stop Dose Admin Acetaminophen 650 mg 04/07/20 01:16 Acetaminophen 325 Mg Tablet PO Q6H PRN Pain, Mild (Pain Scale 1-3) Cefuroxime Axetil 500 mg 04/07/20 18:00 04/10/20 06:08 Cefuroxime Axetil 500 Mg Tablet PO Not Given Q12H EDI Diltiazem HCl 60 mg 04/08/20 11:00 04/10/20 11:28 Diltiazem Hcl 30 Mg Tablet PO 60 mg Q6H EDI Administration Protocol Docusate Sodium 100 mg 04/07/20 01:16 Docusate Sodium 100 Mg Capsule PO DAILY PRN Constipation Doxycycline Hyclate 100 mg 04/09/20 08:00 04/10/20 09:47 Doxycycline Hyclate 100 Mg Tablet PO 100 mg Q12H EDI Administration Meclizine HCl 25 mg 04/07/20 01:16 Meclizine Hcl 25 Mg Tablet PO DAILY PRN Dizziness Melatonin 3 mg 04/09/20 21:00 04/09/20 19:55 Melatonin 3 Mg Tablet PO Not Given BEDTIME EDI Multivitamins/Vitamin C 1 tab 04/07/20 09:00 04/10/20 09:47 Multivitamin Tablet PO 1 tab DAILY EDI Administration Ondansetron HCl 4 mg 04/07/20 01:16 Ondansetron Hcl 4 Mg/2 Ml Vial IVPUSH Q8H PRN Nausea and Vomiting Pravastatin Sodium 40 mg 04/07/20 21:00 04/09/20 19:55 Pravastatin Sodium 40 Mg Tablet PO Not Given BEDTIME EDI Rivaroxaban 20 mg 04/08/20 10:45 04/10/20 09:46 Rivaroxaban 15 Mg Tablet PO 20 mg DAILY EDI Administration Sodium Chloride 3 ml 04/07/20 01:16 04/10/20 09:49 0.9 % Sodium Chloride Flush 3 Ml Syringe IVFLUSH 3 ml QSHIFT EDI Administration Trazodone HCl 25 mg 04/09/20 20:00 04/09/20 19:55 Trazodone Hcl 25 Mg Halftab PO Not Given BEDTIME EDI Labs CBC & Chem 7: 04/10/20 05:43 04/10/20 05:43 Microbiology Microbiology Results: Microbiology 04/06/20 12:59 Blood - Venous Blood Culture - Preliminary No growth after 48 hours. 04/06/20 12:35 Blood - Venous Blood Culture - Preliminary No growth after 48 hours. Assessment and Plan (1) Atrial fibrillation, new onset: Status: Acute (2) Pneumonia due to 2019-nCoV: Status: Acute Assessment and Plan: hospital d#5 79yo F with HTN diagnosed with COVID-19 04/05/20 after 2 wk of cough, admitted for new-onset AF # new-onset AF - rate improved on diltiazem 60 mg q6h- will switch to 240 mg CD q24h - [id number] 4, on rivaroxaban 20 mg daily - has appt with Dr Gutierrez 04/29 - outpt TTE # HTN - holding atenolol + HCTZ to allow BP room for rate control agent # COVID-19 PNA - stopped dexamethasone after 5 doses due to no clear hypoxic indication and concern of steroid-induced delirium - will d/c cefuroxime + doxycycline as PCT <0.25, got 5d total # acute encephalopathy - multifactorial: COVID-19, dexamethasone, hospitalization. no underlying dementia or cognitive impairment. per pt's , she was starting to get confused while on the dexamethasone at home - seems to be improving slowly # dyslipidemia - continue statin # VTE ppx - continue rivaroxaban # dispo - PT eval
[2020-04-10] MEDS: dilTIAZem HCL CD 240 MG CAP.ER.DEG PO (13:20)
--- NOTE | 2020-04-10 14:31 | PC.NURSE ---
PT CONTINUES TO BE COOPERATIVE AND APPROPRIATE THIS SHIFT. TOOK ALL MEDICATIONS ORDERED.
--- NOTE | 2020-04-10 14:34 | MHC.CM.PN ---
CM spoke to pts , Sam ([phone]). He was informed that the pt was cleared by PT. He reports he would like the pt to come home at DC. CM discussed the pts current confusion. He reports he spoke to pt this morning and she sounded better but he reports she sounded a little depressed. Sam asked when she may be able to come home, after checking with MD, ANAYA informed him she may be able to DC tomorrow depending on her mental status. Sam reports he would like social staff worker to check in and make sure she is ok. ANAYA discussed a referral to [facility] which he requested. He would also like a VNA referral as ANAYA explained it may take several days for [facility] to check in with them. Beba requested to be transferred to pts room to speak to her again and is aware he will be contacted tomorrow when DC status is known. Current DC plan is home with VNA, agency not yet known, awaiting referral acceptance, and a new referral to [facility] pts family will transport
[2020-04-10] MEDS: Melatonin 3 MG TABLET PO (23:18)
[2020-04-10] MEDS: Pravastatin Sodium 40 MG TABLET PO (23:18)
[2020-04-10] MEDS: traZODone HCL 25 MG HALFTAB PO (23:18)
[2020-04-11 04:00] VITALS: BP 122/75; PULSE 78; RESP 18; TEMP 36.7; O2SAT 97
[2020-04-11 08:00] VITALS: BP 113/59; PULSE 78; RESP 16; TEMP 36.4; O2SAT 96
[2020-04-11 08:38] VITALS: BP 113/59; PULSE 78
[2020-04-11] MEDS: Rivaroxaban 15 MG TABLET 20 MG PO (08:38)
[2020-04-11] MEDS: dilTIAZem HCL CD 240 MG CAP.ER.DEG PO (08:38)
[2020-04-11] MEDS: Multivitamin TABLET 1 TAB PO (08:41)
[2020-04-11] MEDS: 0.9 % Sodium Chloride Flush 3 ML SYRINGE IVFLUSH (08:44)
--- NOTE | 2020-04-11 11:44 | P.F2F_ITS ---
Service Date Service Date: 04/11/20 Encounter Date of encounter: 04/11/20 Reasons for Services Signs and symptoms assessed: delirium/encephalopathy rate control breathing Reason for correction: neurological assessment, medication management, medication treatment and teach disease management Reason for physical therapy: home safety and mobility, therapeutic exercises, gait/transfer training, assess need for DME, ADL training and energy conservation Reason for occupational therapy: home safety and mobility, therapeutic exe rcises, gait/transfer training, assess need for DME, ADL training and energy conservation MD Overseeing Care: Michael Edmond Homebound: Leaving the home is medically contraindicated at this time without the asist of a device and/or another person due th the listed conditions above and below. Reason homebound: unsteady gait / fall risk, cognitively impaired / unsafe and weakness related to hospital stay Homebound supporting statement: The patient was admitted to [facility] [place] 04/06-04/11/20 for new-onset atrial fibrillation and COVID-19 infection. [facility]NA for medication/disease management, neurologic assessment, and home PT/OT. Certification: Based on the above findings, I certify that this patient is confined to the home and needs intermittent correction care, physical therapy and/or speech therapy, or continues to need occupational therapy. The patient is under my care, and I have initiated the establishment of the plan of care. The patient will be followed by a physician who will periodically review the plan of care.
--- NOTE | 2020-04-11 11:55 | P.DS_ITS ---
DS: Providers Provider Date of Service: 04/11/20 Date of admission: 04/06/20 15:50 Primary care physician: Michael Edmond MD Consults: 04/06/20 15:50 Consult to Cardiology Routine Consulting Provider: Jeremy Gutierrez Reason for consultation: new afib Has provider been notified: No DS: Diagnosis Discharge Diagnosis (1) Atrial fibrillation, new onset: Status: Acute (2) Pneumonia due to 2019-nCoV: Status: Acute (3) Encephalopathy acute: Status: Acute DS: Medications Discharge Medications Home Medications: Home Medications Medication Instructions Recorded Confirmed meclizine 25 mg PO DAILY PRN 04/06/20 04/06/20 multivitamin 1 tab PO DAILY 04/06/20 04/06/20 Previous Rx's Medication Instructions Recorded lovastatin 40 mg tablet 40 mg PO DAILY #90 tab 03/11/20 diltiazem HCl 240 mg PO DAILY #30 cap 04/11/20 rivaroxaban [Xarelto] 20 mg PO DAILY #30 tab 04/11/20 DS: Summary Hospital Course Hospital Course: From admission history and physical by admitting hospitalist CRISTINA Roa, 04/06/20: This is a 79 year old female who presents to the ED with chills. Yesterday she was seen in the ED for two weeks of cough and sneezing. She was diagnosed with pneumonia secondary to coronavirus. She did not require supplemental oxygen and was discharged home with antibiotics and oral dexamethasone. Overnight she had difficulty sleeping due to chills. She denies shortness of breath. Lab work was unremarkable other than mild elevation in lactic acid 2.1. However EKG showed atrial fibrillation. Patient denies any previous history of atrial fibrillation. She denies any chest pain, palpitations, dizziness, shortness of breath. She was given a dose of po cardizem. Given new onset afib the decision was made to admit her to the hospital. [place] [facility] [place]. Rapid ventricular rate was controlled with diltiazem; her home blood pressure agents were discontinued. She was eventually switched to long-acting diltiazem, 240 mg daily. Given [id number] score of 4, she was started on anticoagulation with rivaroxaban 20 mg daily. She developed acute encephalopathy with agitated delirium. She has no history of underlying dementia or cognitive impairment. Initially, this was attributed to COVID-19, hospitalization, and the dexamethasone. Ultimately, the dexamethasone was discontinued given the lack of a clear hypoxia and concern for steroid-induced delirium and her mental status improved considerably. She was not hypoxic. She did get 5 days antibiotic therapy for concern of bacterial pneumonia but this was discontinued once her procalcitonin was low. She was discharged home with VNA services and instructions to follow-up with primary care doctor in 1 week. Follow up with [place] [facility] was also arranged. Time Spent with Patient Time attestation: Total time spent providing and/or coordinating discharge services: 40 Discharge coordination time: Greater than 30 minutes Physical Exam Vital Signs: Vital Signs: Last Vital Signs Temp 97.6 F 04/11/20 08:00 Pulse 78 04/11/20 08:38 Resp 16 04/11/20 08:00 BP 113/59 L 04/11/20 08:38 Pulse Ox 96 04/11/20 08:00 Body Mass Index 31.2 Gen: in no acute distress HEENT: sclera anicteric, moist mucus membranes Neck: supple Lungs: no respiratory distress, auscultation deferred due to COVID-19 Heart: normal peripheral pulses, irregularly irregular Abd: soft, non-tender, non-distended Ext: no cyanosis, clubbing, or edema Skin: warm/well-perfused Neuro: alert and oriented x3, no focal findings Psych: appropriate affect DS: Data Data Completed and Pending Labs on day of discharge: Laboratory Results WBC 6.3 X10*3/uL (4.8-10.8) 04/10/20 05:43 RBC 3.77 X10*6/uL (4.20-5.50) L 04/10/20 05:43 Hgb 11.7 g/dl (12.0-16.0) L 04/10/20 05:43 Hct 35.3 % (37-47) L 04/10/20 05:43 MCV 93.6 fL (80-98) 04/10/20 05:43 MCH 31.0 pg (27.0-33.0) 04/10/20 05:43 MCHC 33.1 g/dl (31.0-35.0) 04/10/20 05:43 RDW 13.1 % (11.0-16.0) 04/10/20 05:43 Plt Count 349 X10*3/uL (160-400) D 04/10/20 05:43 MPV 10.8 fL (9.4-12.3) 04/10/20 05:43 Immature Gran % (Auto) 1.4 % (0.0-0.4) H 04/10/20 05:43 Neut % (Auto) 73.2 % (45-73) H 04/10/20 05:43 Lymph % (Auto) 14.8 % (20-40) L 04/10/20 05:43 [place] % (Auto) 10.4 % (2-11) 04/10/20 05:43 Eos % (Auto) 0.0 % (0-4) 04/10/20 05:43 Baso % (Auto) 0.2 % (0-2) 04/10/20 05:43 Lymph # (Auto) 0.9 X10*3/uL (1.2-4.9) L 04/10/20 05:43 [place] # (Auto) 0.7 X10*3/uL (0.1-1.2) 04/10/20 05:43 Eos # (Auto) 0.0 X10*3/uL (0.0-0.4) 04/10/20 05:43 Baso # (Auto) 0.0 X10*3/uL (0.0-0.2) 04/10/20 05:43 Abs Immat Gran (auto) 0.09 X10*3/uL (0.00-0.03) H 04/10/20 05:43 Absolute Neuts (auto) 4.6 X10*3/uL (2.0-8.3) 04/10/20 05:43 Absolute Nucleated RBC 0.000 X10*3/uL (0.0-0.012) 04/10/20 05:43 Nucleated RBC % (auto) 0.0 /100WBC (0.0-0.2) 04/10/20 05:43 Smear Tech's Comments VERIFIED 04/10/20 05:43 D-Dimer 579 NG/ML 04/08/20 09:38 Sodium 142 mmol/L (135-145) 04/10/20 05:43 Potassium 5.0 mmol/L (3.3-5.1) D 04/10/20 05:43 Chloride 104 mmol/L (96-108) 04/10/20 05:43 Carbon Dioxide 29 mmol/L (22-29) 04/10/20 05:43 Anion Gap 14 (12-20) 04/10/20 05:43 BUN 36 mg/dL (9-16) H D 04/10/20 05:43 Creatinine 0.70 mg/dL (0.5-1.4) 04/10/20 05:43 Estim Creat Clear Calc 61.3 04/10/20 05:43 Estimated GFR > 60 04/10/20 05:43 Random Glucose 153 mg/dL (60-115) H 04/10/20 05:43 Lactic Acid 2.1 mmol/L (0.5-2.0) H* 04/06/20 12:33 Lactic Acid Fup @ 2Hr 0.8 mmol/L (0.5-2.0) 04/06/20 15:44 Calcium 8.9 mg/dL (8.4-10.2) 04/10/20 05:43 Magnesium 2.4 mg/dL (1.6-2.6) 04/10/20 05:43 Ferritin 884 ng/mL (10-250) H 04/08/20 09:38 Total Bilirubin 0.9 mg/dL (0.0-1.0) 04/10/20 05:43 Direct Bilirubin 0.3 mg/dL (0.0-0.5) 04/10/20 05:43 AST 25 U/L (5-31) 04/10/20 05:43 ALT 36 U/L (0-31) H 04/10/20 05:43 Alkaline Phosphatase 57 U/L (39-117) 04/10/20 05:43 Lactate Dehydrogenase 354 U/L (122-220) H 04/08/20 09:38 C-Reactive Protein 5.61 mg/dL (< or = 0.50) H 04/10/20 05:43 B-Natriuretic Peptide 131 pg/mL (<100) H 04/06/20 12:33 Total Protein 6.4 g/dL (6.5-8.0) L 04/10/20 05:43 Albumin 3.5 g/dL (3.5-5.0) 04/10/20 05:43 Lipase 62 U/L (8-78) 04/06/20 12:33 Procalcitonin 0.22 ng/mL 04/10/20 05:43 TSH 2.87 uIU/mL (0.32-4.0) 04/06/20 12:33 Urine Color DARK YELLOW 04/07/20 01:36 Urine Appearance CLEAR 04/07/20 01:36 Urine pH 6.0 (5.0-8.0) 04/07/20 01:36 Ur Specific [place] 1.025 (1.005-1.025) 04/07/20 01:36 Urine Protein 1+ MG/DL (NEG-TRACE) H 04/07/20 01:36 Urine Glucose (UA) NEG MG/DL (NEG) 04/07/20 01:36 Urine Ketones 15 MG/DL (NEG) 04/07/20 01:36 Urine Blood 1+ (NEG) H 04/07/20 01:36 Urine Nitrite NEG (NEG) 04/07/20 01:36 Ur Leukocyte Esterase NEG (NEG) 04/07/20 01:36 Urine RBC 0-2 /HPF (0) 04/07/20 01:36 Urine WBC 0-2 /HPF (0-4) 04/07/20 01:36 Ur Squamous Epith Cells TRACE /LPF 04/07/20 01:36 Urine Bacteria NONE /LPF 04/07/20 01:36 Hyaline Casts 5-9 /LPF 04/07/20 01:36 Granular Casts 1-4 /LPF 04/07/20 01:36 Urine Mucus 2+ /LPF 04/07/20 01:36 Impressions Chest X-Ray 04/06/20 11:42 IMPRESSION: Atypical multilobar pneumonia. TTE 04/08/20 1. Normal LV systolic function with mild LVH 2. Mildly dilated left atrium 3. Mild aortic stenosis and mild mitral regurgitation 4. Normal RV systolic pressure 5. No pericardial effusion Discharge Plan Discharge Anticipated Discharge Date/Time: 04/11/20 11:43 Patient Disposition: Home Health Service Referrals: [facility] [Outside] Michael Edmond MD [Primary Care Provider] - Jeremy Gutierrez MD [Physician] - Discharge Medications: New diltiazem HCl 240 mg Capsule,Extended Release 24hr 240 mg PO DAILY Qty: 30 RF: 0 Xarelto 20 mg tablet 20 mg PO DAILY Qty: 30 RF: 0 Continued lovastatin 40 mg tablet 40 mg PO DAILY Qty: 90 RF: 8 multivitamin Tablet 1 tab PO DAILY RF: 0 meclizine 25 mg tablet 25 mg PO DAILY PRN (Reason: Dizziness) RF: 0 Discontinued atenolol 25 mg tablet 50 mg PO DAILY 90 Days Qty: 180 RF: 8 hydrochlorothiazide 25 mg tablet 25 mg PO DAILY Qty: 90 RF: 8 dexamethasone 4 mg Tablet 4 mg PO DAILY RF: 0 cefuroxime axetil 500 mg Tablet 500 mg PO BID RF: 0 doxycycline hyclate 100 mg Capsule 100 mg PO BID RF: 0 aspirin 81 mg Tablet,Chewable 81 mg PO DAILY RF: 0 Discharge Orders: Discharge Order (Routine); Ordered 04/11/20 Ordered By: Tereza Alex Diet: low salt diet Activity on Discharge: As tolerated Stand Alone Forms: Patient Portal Discharge page Care Plan Goals: control of atrial fibrillation and prevention of stroke resolution of COVID-19 resolution of delirium Health Concerns: atrial fibrillation, new-onset COVID-19 delirium Plan of Treatment: take diltiazem 240 mg daily [replaces atenolol and HCTZ] to control heart rate and blood pressure take rivaroxaban 20 mg daily to prevent stroke [place] [facility] as scheduled 04/29/[address] [place] [address], [address] [place] [address] you have completed CDC-recommended isolation for 10 days from onset of symptoms, which was 03/22/20 check oxygen saturation 3 times a day plus anytime you have shortness of breath; return to hospital if less than 91% delirium resolved- stop dexamethasone which was probably the cause follow up with your primary care doctor in 1 week, please Patient Instructions: Diltiazem (By mouth), Rivaroxaban (By mouth), A-fib (Atrial Fibrillation) (DC), COVID-19 (Coronavirus Disease 2019) (DC)
[2020-04-11 12:00] VITALS: BP 130/65; PULSE 88; RESP 16; TEMP 36.6; O2SAT 96
--- NOTE | 2020-04-11 12:25 | MHC.CM.PN ---
ANAYA contacted pts , Sam Muñoz ([phone]) and informed him of pts pending DC. He is aware the pt will DC home with [facility] services. He also requested a referral to [facility] which was made. ANAYA explained that [facility] would not start right away however and that they would contact him to determine if pt is eligible for services with them. Sam reports he and their son Wyatt, will be coming to order picker/assembler the pt [place]. ANAYA spoke to pts nurse who reported she would be ready by 1300 hours. Sam and Wyatt will pick her up at 1315 hours.
== END 2020-04-11 13:11 | disposition home health service (06) | DRG 177 ==
LOC: HO.ED 15:32 → HO.EDOVER 15:55 → HO.ISO 04-07 11:48 → HO.IMC 04-08 07:35
PROVIDERS: Physician Assistant Medical; Admitting Provider Internal Medicine; Emergency Provider Emergency Medicine; PCP Internal Medicine; Visit Provider Family Medicine
DX: U07.1 COVID-19 (principal); J12.82 Pneumonia due to coronavirus disease 2019; G93.49 Other encephalopathy; F05 Delirium due to known physiological condition; I95.9 Hypotension, unspecified; I48.91 Unspecified atrial fibrillation; E78.5 Hyperlipidemia, unspecified; I10 Essential (primary) hypertension; Z79.01 Long term (current) use of anticoagulants; Z79.899 Other long term (current) drug therapy
CPT/HCPCS: 0241U; 11104; 36415; 71045; 71250; 74176; 80048; 80053; 80076; 81001; 82728; 83605; 83615; 83690; 83735; 83880; 84145; 84443; 84484; 85025; 85379; 85610; 85730; 86140; 87040; 93005; 93306; 96365; 96375; 97162; 99284; 99285; J0696; J1100; J2060; J2405; J8540

== ENCOUNTER → 2020-04-18 08:58 | Outpatient (REF) | payer MEDICARE, SELFPAY ==
--- NOTE | 2020-04-19 14:04 | ECG_ITS ---
Hook-up date: 2020-04-18 10:18:00 Duration: 08:46:00 Test Indications: unspecified afib Medications: 12142 QRS complexes 14 Ventricular ectopics which represent <1 % of total QRS comp. 4 Supraventricular ectopics which represent <1 % of total QRS comp. * Paced QRS complexs which represent % of total QRS comp. VENTRICULAR ECTOPY 14 Isolated 0 Bigeminal Cycles 0 Couplets 0 Runs 0 Beats in Runs * Beats LONGEST at * BPM at :: -- * Beats FASTEST at * BPM at :: -- SUPRAVENTRICULAR ECTOPY 4 Isolated 0 Couplets 0 Runs 0 Beats in Runs * Beats LONGEST at * BPM at :: -- * Beats FASTEST at * BPM at :: -- HEART RATES 53 MIN at 16:38:41 2020-04-18 76 AVG 116 MAX at 17:11:38 2020-04-18 LONGEST RR 1.7760 secs at 12:34:26 2020-04-18 S-T LEVELS Channel 1 - 128 mm at 10:18:00 2020-04-18 - 128 mm at 10:18:00 2020-04-18 Channel 2 - 128 mm at 10:18:00 2020-04-18 - 128 mm at 10:18:00 2020-04-18 Channel 3 - 128 mm at 02:93:71 -- - 128 mm at 02:93:71 Basic rhythm Normal sinus rhythm No long pause or profound bradycardia Occasional Normal sinus rhythm with 2nd degree A-V block (Mobitz I) noted No sustained Atrial fibrillation Patient did not report any symptoms in the diary Referred By: Jeremy Gutierrez Overread By: BRODERICK YI MD
== END ==
LOC: HO.CARD 08:58
PROVIDERS: PCP Internal Medicine; Visit Provider Internal Medicine Cardiovascular Disease
DX: I48.91 Unspecified atrial fibrillation (principal)
CPT/HCPCS: 93226

== ENCOUNTER → 2020-05-29 11:45 | Outpatient (BNVA) | payer MEDICARE, SELFPAY | PROVIDERS: PCP Internal Medicine; Visit Provider Internal Medicine Cardiovascular Disease | DX: I48.0 Paroxysmal atrial fibrillation (principal); I10 Essential (primary) hypertension | CPT/HCPCS: 93005; 99212 ==

== ENCOUNTER → 2020-06-03 08:46 | Outpatient (REF) | payer MEDICARE, SELFPAY ==
--- NOTE | 2020-06-03 12:30 | ECG_ITS ---
Hook-up date: 2020-06-03 08:52:00 Duration: 47:59:00 Test Indications: UNSPEC AFIB Medications: 323907 QRS complexes 43 Ventricular ectopics which represent <1 % of total QRS comp. 296 Supraventricular ectopics which represent <1 % of total QRS comp. * Paced QRS complexs which represent % of total QRS comp. VENTRICULAR ECTOPY 40 Isolated 3 Bigeminal Cycles 0 Couplets 1 Runs 3 Beats in Runs 3 Beats LONGEST at 161 BPM at 22:22:52 2020-06-04 3 Beats FASTEST at 161 BPM at 22:22:52 2020-06-04 SUPRAVENTRICULAR ECTOPY 222 Isolated 19 Couplets 7 Runs 36 Beats in Runs 9 Beats LONGEST at 132 BPM at 14:05:20 2020-06-04 3 Beats FASTEST at 176 BPM at 17:09:29 2020-06-04 HEART RATES 63 MIN at 02:41:42 2020-06-04 82 AVG 121 MAX at 15:09:09 2020-06-04 LONGEST RR 1.7920 secs at 04:19:54 2020-06-04 S-T LEVELS Channel 1 - 128 mm at 08:52:00 2020-06-03 - 128 mm at 08:52:00 2020-06-03 Channel 2 - 128 mm at 08:52:00 2020-06-03 - 128 mm at 08:52:00 2020-06-03 Channel 3 - 128 mm at 02:81:11 -- - 128 mm at 02:81:11 Underlying rhythm is sinus; Average ventricular rate 82/min; Occasional supraventricular ectopy with some brief runs; Rare ventricular ectopy; Palpitations in patient diary with underlying sinus, but some strips also have a lot of artifact. Referred By: Jeremy Gutierrez Overread By: PRIYA MCGHEE
== END ==
LOC: HO.CARD 08:46
PROVIDERS: PCP Internal Medicine; Visit Provider Internal Medicine Cardiovascular Disease
DX: I48.91 Unspecified atrial fibrillation (principal)
CPT/HCPCS: 93226

== ENCOUNTER 2020-06-13 07:08 | Outpatient (REF) | payer MEDICARE, SELFPAY ==
[2020-06-13 11:56] LABS: Cholesterol 216 mg/dL; HDL Cholesterol 96 mg/dL; LDL Cholesterol Calculated 103 mg/dl; Triglycerides 85 mg/dL
== END 2020-06-13 07:09 | disposition home or self-care (01) ==
LOC: HO.HMGCLDS 07:08
PROVIDERS: PCP Internal Medicine; Visit Provider Internal Medicine
DX: E11.9 Type 2 diabetes mellitus without complications (principal)
CPT/HCPCS: 36415; 80061

== ENCOUNTER → 2020-06-19 10:41 | Outpatient (BNVA) | payer MEDICARE, SELFPAY | PROVIDERS: PCP Internal Medicine; Visit Provider Nurse Practitioner Family | DX: R00.2 Palpitations (principal); I48.0 Paroxysmal atrial fibrillation; I10 Essential (primary) hypertension; I44.1 Atrioventricular block, second degree; I35.0 Nonrheumatic aortic (valve) stenosis; Z79.899 Other long term (current) drug therapy | CPT/HCPCS: 93005; 99212 ==

== ENCOUNTER → 2020-07-24 09:37 | Outpatient (BNVA) | payer MEDICARE, SELFPAY | PROVIDERS: PCP Internal Medicine; Referring Provider Internal Medicine; Visit Provider Internal Medicine Cardiovascular Disease | DX: I48.0 Paroxysmal atrial fibrillation (principal); I10 Essential (primary) hypertension | CPT/HCPCS: 99212 ==

== ENCOUNTER → 2020-08-23 09:35 | Outpatient (BNVA) | payer MEDICARE, SELFPAY | PROVIDERS: PCP Internal Medicine; Referring Provider Internal Medicine; Visit Provider Internal Medicine Cardiovascular Disease | DX: I35.0 Nonrheumatic aortic (valve) stenosis (principal); I44.1 Atrioventricular block, second degree; I48.0 Paroxysmal atrial fibrillation; I10 Essential (primary) hypertension | CPT/HCPCS: 99212 ==

== ENCOUNTER 2020-10-02 06:52 | Outpatient (REF) | payer MEDICARE, SELFPAY ==
[2020-10-02 11:32] LABS: Cholesterol 202 mg/dL; HDL Cholesterol 96 mg/dL; LDL Cholesterol Calculated 92 mg/dl; Triglycerides 71 mg/dL
== END 2020-10-02 06:53 | disposition home or self-care (01) ==
LOC: HO.HMGCLDS 06:52
PROVIDERS: PCP Internal Medicine; Visit Provider Internal Medicine
DX: E11.9 Type 2 diabetes mellitus without complications (principal)
CPT/HCPCS: 36415; 80061

== ENCOUNTER → 2020-11-13 09:00 | Outpatient (BNVA) | payer MEDICARE, SELFPAY | PROVIDERS: PCP Internal Medicine; Referring Provider Internal Medicine; Visit Provider Internal Medicine Cardiovascular Disease | DX: Z01.810 Encounter for preprocedural cardiovascular examination (principal); I48.0 Paroxysmal atrial fibrillation; I10 Essential (primary) hypertension; R00.2 Palpitations | CPT/HCPCS: 99212 ==

== ENCOUNTER 2021-01-31 09:06 | Outpatient (REF) | payer MEDICARE, SELFPAY ==
[2021-01-31 12:05] LABS: Cholesterol 201 mg/dL; HDL Cholesterol 87 mg/dL; LDL Cholesterol Calculated 95 mg/dl; Triglycerides 96 mg/dL
== END 2021-01-31 09:07 | disposition home or self-care (01) ==
LOC: HO.HMGCLDS 09:06
PROVIDERS: PCP Internal Medicine; Visit Provider Internal Medicine
DX: E11.9 Type 2 diabetes mellitus without complications (principal)
CPT/HCPCS: 36415; 80061

== ENCOUNTER 2021-02-14 09:54 | Outpatient (REF) | payer MEDICARE, SELFPAY ==
--- NOTE | ~2021-02-14 | MM_ITS ---
EXAMINATION: MM SCREENING DIGITAL BREAST TOMOSYNTHESIS, BILATERAL CLINICAL INFORMATION: Screening. Asymptomatic. The lifetime risk of breast cancer based on the Tyrer-Cuzick Model is 3%. COMPARISON: Mammography: 02/14/2020, 02/08/2019, 01/31/2018, 01/26/2017 TECHNIQUE: Digital breast tomosynthesis is performed in both the craniocaudal and mediolateral oblique views along with computer-aided detection (CAD). Synthesized 2D images are generated from the tomosynthesis. FINDINGS: There are scattered areas of fibroglandular density (ACR BI-RADS breast composition Category b). There are no significant masses, abnormal calcifications, or other abnormalities. Parenchymal pattern is similar to prior exams. No developing density. No significant changes. MM/MM tomosynthesis screening BI IMPRESSION: No mammographic evidence of malignancy. ASSESSMENT: BI-RADS 1: Negative RECOMMENDATION: Routine annual mammography screening. This patient's information was entered into a reminder system with a target due date for their next mammogram.
== END 2021-02-14 09:55 | disposition home or self-care (01) ==
LOC: HO.MAMMO 09:54
PROVIDERS: Visit Provider Internal Medicine
DX: Z12.31 Encounter for screening mammogram for malignant neoplasm of breast (principal)
CPT/HCPCS: 77063; 77067

== ENCOUNTER → 2021-05-14 10:01 | Outpatient (BNVA) | payer MEDICARE, SELFPAY | PROVIDERS: PCP Internal Medicine; Referring Provider Internal Medicine; Visit Provider Internal Medicine Cardiovascular Disease | DX: I35.0 Nonrheumatic aortic (valve) stenosis (principal); I44.1 Atrioventricular block, second degree; I48.0 Paroxysmal atrial fibrillation; Z79.01 Long term (current) use of anticoagulants; Z79.899 Other long term (current) drug therapy | CPT/HCPCS: 93005; 99212 ==

== ENCOUNTER 2021-06-03 06:48 | Outpatient (REF) | payer MEDICARE, SELFPAY ==
[2021-06-03 11:48] LABS: Basophils Percent Auto 0.6 % (0-2); Eosinophils Absolute Auto 0.1 X10*3/uL (0.0-0.4); Eosinophils Percent Auto 1.5 % (0-4); Hematocrit 42.3 % (37.0-47.0); Hemoglobin 13.4 g/dl (12.0-16.0); Imm Gran Abs Auto 0.01 X10*3/uL (0.00-0.03); Imm Gran Pct Auto 0.3 % (0.0-0.4); Lymphocytes Absolute Auto 1.1 X10*3/uL (1.2-4.9); Lymphocytes Percent Auto 35.2 % (20-40); MANUAL DIFF FLAG SCAN; Mean Corpuscular HGB Conc 31.7 g/dl (31.0-35.0); Mean Corpuscular Hemoglobin 29.6 pg (27.0-33.0); Mean Corpuscular Volume 93.4 fL (80.0-98.0); Mean Platelet Volume 10.6 fL (9.4-12.3); Monocytes Absolute Auto 0.9 X10*3/uL (0.1-1.2); Monocytes Percent Auto 27.8 % (2-11); Neutrophils Absolute Auto 1.1 x10*3/uL (2.0-8.3); Neutrophils Percent Auto 34.6 % (45-73); Platelet Count 257 X10*3/uL (160-400); Red Blood Count 4.53 X10*6/uL (4.20-5.50); Red Cell Distribution Width 12.6 % (11.0-16.0); SCAN SMEAR FLAG 1; White Blood Count 3.2 X10*3/uL (4.8-10.8)
[2021-06-03 11:55] LABS: Alanine Aminotransferase 13 U/L (0-31); Albumin Level 4.2 g/dL (3.5-5.0); Alkaline Phosphatase 69 U/L (39-117); Anion Gap 10 (12-20); Aspartate Amino Transferase 14 U/L (5-31); Bilirubin Total 0.4 mg/dL (0.0-1.0); Blood Urea Nitrogen 20 mg/dL (9-16); Calcium 9.4 mg/dL (8.4-10.2); Carbon Dioxide 33 mmol/L (22-29); Chloride 102 mmol/L (96-108); Estimated Glomerular Filt Rate > 60; Glucose Fasting 99 mg/dL (60-99); Potassium 3.8 mmol/L (3.3-5.1); Sodium 141 mmol/L (135-145); Total Protein 6.9 g/dL (6.5-8.0)
[2021-06-03 12:17] LABS: Thyroid Stimulating Hormone 4.28 uIU/mL (0.32-4.0)
[2021-06-03 12:18] LABS: SLIDE REVIEW VERIFIED
== END 2021-06-03 06:49 | disposition home or self-care (01) ==
LOC: HO.HMGCLDS 06:48
PROVIDERS: Visit Provider Internal Medicine
DX: Z00.00 Encounter for general adult medical examination without abnormal findings (principal); Z13.0 Encounter for screening for diseases of the blood and blood-forming organs and certain disorders involving the immune mechanism
CPT/HCPCS: 36415; 80053; 84443; 85025

== ENCOUNTER 2021-09-23 06:11 | Outpatient (REF) | payer MEDICARE, SELFPAY ==
[2021-09-23 11:35] LABS: Cholesterol 193 mg/dL; HDL Cholesterol 78 mg/dL; LDL Cholesterol Calculated 100 mg/dl; Triglycerides 78 mg/dL
[2021-09-23 11:59] LABS: Thyroid Stimulating Hormone 4.28 uIU/mL (0.32-4.0)
== END 2021-09-23 06:12 | disposition home or self-care (01) ==
LOC: HO.HMGCLDS 06:11
PROVIDERS: Visit Provider Internal Medicine
DX: Z00.00 Encounter for general adult medical examination without abnormal findings (principal)
CPT/HCPCS: 36415; 80061; 84443

== ENCOUNTER → 2021-11-17 08:59 | Outpatient (BNVA) | payer MEDICARE, SELFPAY | PROVIDERS: PCP Internal Medicine; Referring Provider Internal Medicine; Visit Provider Internal Medicine Cardiovascular Disease | DX: I44.1 Atrioventricular block, second degree (principal); I35.0 Nonrheumatic aortic (valve) stenosis; I48.0 Paroxysmal atrial fibrillation; I10 Essential (primary) hypertension | CPT/HCPCS: 93005; 99212 ==

== ENCOUNTER 2022-01-30 09:04 | Outpatient (REF) | payer MEDICARE, SELFPAY ==
[2022-01-30 11:35] LABS: Cholesterol 185 mg/dL; HDL Cholesterol 80 mg/dL; LDL Cholesterol Calculated 89 mg/dl; Triglycerides 80 mg/dL
== END 2022-01-30 09:05 | disposition home or self-care (01) ==
LOC: HO.HMGCLDS 09:04
PROVIDERS: PCP Internal Medicine; Visit Provider Internal Medicine
DX: E78.5 Hyperlipidemia, unspecified (principal)
CPT/HCPCS: 36415; 80061

== ENCOUNTER → 2022-02-13 11:58 | Outpatient (REF) | payer MEDICARE, SELFPAY ==
--- NOTE | 2022-02-13 12:02 | ECG_ITS ---
Test Reason : palpitatioms Blood Pressure : / mmHG Vent. Rate : 073 BPM Atrial Rate : 073 BPM P-R Int : 202 ms QRS Dur : 080 ms QT Int : 388 ms P-R-T Axes : 072 008 009 degrees QTc Int : 427 ms Normal sinus rhythm Normal ECG When compared with ECG of 06-APR-2020 14:34, Sinus rhythm has replaced Atrial fibrillation Nonspecific T wave abnormality has replaced inverted T waves in Inferior leads T wave inversion no longer evident in Lateral leads Referred By: Michael Edmond Electronically Signed By:BRODERICK YI MD
== END ==
LOC: HO.CARD 11:58
PROVIDERS: PCP Internal Medicine; Visit Provider Internal Medicine
DX: R00.2 Palpitations (principal)
CPT/HCPCS: 93005

== ENCOUNTER → 2022-02-16 13:08 | Outpatient (REF) | payer MEDICARE, SELFPAY ==
--- NOTE | 2022-02-16 13:11 | HM_ITS ---
Conclusion: 1. Patient was monitored for total period of 1 day 2. Baseline was normal sinus rhythm with average heart rate of 76 beats per minute 3. Occasional PACs with total burden of 0.2% 4. No significant pauses or bradycardia noted 5. Patient reported events 7 times with symptoms of heart racing correlating with sinus rhythm or sinus tachycardia MTDD
== END ==
LOC: HO.CARD 13:08
PROVIDERS: Visit Provider Internal Medicine
DX: R00.2 Palpitations (principal)
CPT/HCPCS: 93226

== ENCOUNTER 2022-02-16 13:22 | Outpatient (REF) | payer MEDICARE, SELFPAY | END 2022-02-16 13:23 | disposition home or self-care (01) | LOC: HO.MAMMO 13:22 | PROVIDERS: PCP Internal Medicine; Visit Provider Internal Medicine | DX: Z13.89 Encounter for screening for other disorder (principal) ==

== ENCOUNTER 2022-02-20 09:49 | Outpatient (REF) | payer MEDICARE, SELFPAY ==
--- NOTE | ~2022-02-20 | MM_ITS ---
EXAMINATION: MM SCREENING DIGITAL BREAST TOMOSYNTHESIS, BILATERAL CLINICAL INFORMATION: Screening. Asymptomatic. The lifetime risk of breast cancer based on the Tyrer-Cuzick Model is 2%. COMPARISON: Mammography: 02/14/2021, 02/14/2020, 02/08/2019 TECHNIQUE: Digital breast tomosynthesis is performed in both the craniocaudal and mediolateral oblique views along with computer-aided detection (CAD). Synthesized 2D images are generated from the tomosynthesis. FINDINGS: There are scattered areas of fibroglandular density (ACR BI-RADS breast composition Category b). There are no significant masses, abnormal calcifications, or other abnormalities. Parenchymal pattern is similar to prior exams and there is no developing density or architectural abnormality. Incidental digital processing pseudocalcification artifact is present right anterior breast on synthesized MLO view. No correlate on tomography or CC projection. The axilla and skin contours are unremarkable. MM/MM tomosynthesis screening BI IMPRESSION: No mammographic evidence of malignancy. ASSESSMENT: BI-RADS 2: Benign RECOMMENDATION: Routine annual mammography screening. This patient's information was entered into a reminder system with a target due date for their next mammogram.
== END 2022-02-20 09:50 | disposition home or self-care (01) ==
LOC: HO.MAMMO 09:49
PROVIDERS: Visit Provider Internal Medicine
DX: Z12.31 Encounter for screening mammogram for malignant neoplasm of breast (principal)
CPT/HCPCS: 77063; 77067

== ENCOUNTER 2022-02-21 07:32 | Emergency (ER) | payer MEDICARE, SELFPAY ==
[2022-02-21 07:39] VITALS: BP 139/73; PULSE 93; RESP 18; TEMP 36.5; O2SAT 96
--- NOTE | 2022-02-21 07:40 | ED.ALLEREA ---
HPI - Allergic Reaction General Chief complaint: Skin/Abscess/Foreign Body Stated complaint: allergic reaction Time Seen by Provider: 02/21/22 07:38 Source: patient Mode of arrival: ambulatory Limitations: no limitations History of Present Illness HPI narrative: generalized rash for 3 days. Denies new over the counter medication. Denies new food, denies new detergents. MD complaint: allergic reaction and hives Onset (ago): day(s) Exposure: unknown Symptoms: rash and lip swelling Severity: moderate Related Data Home Medications Medication Instructions Recorded Confirmed meclizine 25 mg tablet 25 mg PO DAILY PRN Dizziness 04/06/20 02/13/22 multivitamin 1 tab PO DAILY 04/06/20 02/13/22 Previous Rx's Medication Instructions Recorded lovastatin 40 mg tablet 40 mg PO DAILY #90 tabs 03/22/21 diltiazem HCl 240 mg 240 mg PO DAILY #30 caps 09/15/21 capsule,extended release 24 hr rivaroxaban 20 mg tablet (Xarelto) 20 mg PO DAILY #30 tabs 10/02/21 fluocinolone 0.025 % topical cream 1 appl topical BID #60 grams 10/09/21 hydrochlorothiazide 12.5 mg tablet 12.5 mg PO DAILY #90 tabs 11/14/21 metoprolol succinate 25 mg 12.5 mg PO DAILY #45 tabs 02/06/22 tablet,extended release 24 hr diphenhydramine HCl 25 mg capsule 25 mg PO TID PRN allergic reaction 02/21/22 (Benadryl) #30 caps prednisone 20 mg tablet 60 mg PO DAILY #12 tabs 02/21/22 Allergies Allergy/AdvReac Type Severity Reaction Status Date / Time ciprofloxacin [From Cipro] Allergy Mild DIARRHEA,CR Verified 02/13/22 11:14 AMPING clarithromycin [From Biaxin] Allergy Mild DIARRHEA,CR Verified 02/13/22 11:14 AMPING AKI Inhibitors Allergy Unknown Unknown Verified 02/13/22 11:14 indomethacin [From INDOCIN] Allergy Unknown DIZZY Verified 02/13/22 11:14 lisinopril [LISINOPRIL] Allergy Unknown DIZZY Verified 02/13/22 11:14 Review of Systems Review of Systems: Yes all other systems are reviewed and are negative Constitutional: Constitutional: Reports no additional constitutional complaints Eyes: Eyes: Reports no additional eye complaints ENT: Denies dizziness and Reports lip swelling Cardiovascular: Cardiovascular: Reports no additional cardiovascular complaints Respiratory: Respiratory: Reports as per HPI Gastrointestinal: Gastrointestinal: Reports no additional gastrointestinal complaints Genitourinary: Genitourinary: Reports no additional female genitourinary complaints Musculoskeletal: Musculoskeletal: Reports no additional musculoskeletal complaints Integumentary/Breasts: Skin/Breast: Denies rash Neurologic: Reports system reviewed and no additional complaints, except as documented, Denies dizziness and Denies Sensory deficit (Neuro) Psychiatric: Psychiatric: Denies anxiety Allergic/Immunologic: Allergic/Immunologic: Reports lip swelling PMFSH Past Medical History Medical History Aortic stenosis Encephalopathy acute HLD (hyperlipidemia) Hyperlipidemia Hyperlipidemia Hypertension Surgical History H/O rectal polypectomy History of breast lump/mass excision History of cataract surgery History of section History of hysterectomy History of melanoma excision Family History Family History Father Stroke Mother Emphysema lung Social History Social History Household Members: Family Housing: House Do you presently have visiting nurse or other home services: No Alcohol intake: current Alcohol intake frequency: a few times a week Patient Tobacco Use Status: Never used Tobacco Smoked in Last 30 Days: No e-Cigarette/Vaping Use: Never Used Second Hand Smoke Exposure: No Use of substances other than those prescribed or required for medical reasons: No Advance Directives: No Advance Directives Information Provided: No service: No Current occupational status: retired Current occupational exposures/hazards: No Cognitive needs: No Hearing needs: No Vision needs: Yes Physical Exam ED Vital Signs: Vital Signs - 24 hr 02/21/22 07:39 Temperature 97.7 F Pulse Rate 93 Respiratory Rate 18 Blood Pressure 139/73 Pulse Oximetry 96 Oxygen Delivery Method Room Air BMI result Body Mass Index 0.0 Const General: healthy appearing Nutritional Appearance: average body habitus Orientation/consciousness: oriented to person and patient oriented x3 Limitations: no limitations HENMT Head: Yes normal to inspection Ears: external ears normal General nose exam: Normal external nose present Mouth: Normal oral and palatal mucosa present and oropharynx normal Throat: Yes posterior oropharynx normal Eyes General: appearance normal, both eyes and all related structures Neck Neck: Yes normal visual inspection Chest Chest palpation & inspection: normal inspection of the chest Resp Auscultation: clear to auscultation bilaterally Cardio Jugular venous distension: no JVD Rate: regular rate Rhythm: regular rhythm Heart sounds: S1 normal heart sound present and S2 normal heart sound present GI Inspection: Yes normal to inspection Palpation (GI): Soft to palpation, nontender and No hepatosplenomegaly present Auscultation: normal bowel sounds General: Yes no CVA tenderness Back/Spine/Pelvis Back: no CVA tenderness Skin Other: diffuse hives, lips slightly swollen Neuro General: oriented to person and patient oriented x3 Cranial nerves: Yes CN's II-XII intact bilaterally Motor exam (neuro): 5/5 motor strength present throughout Sensory Exam: No Sensory deficit (Neuro) Extrem General: Yes normal to inspection Psych Appearance: grossly normal Course Reevaluation(s) Reevaluation #1: patient improved will dc on benadryl and 4 days of prednisone Time: 09:52 Medications Administered Discontinued Medications Generic Name Dose Route Start Last Admin Trade Name Freq PRN Reason Stop Dose Admin Diphenhydramine HCl 25 mg 02/21/22 07:46 02/21/22 08:17 Diphenhydramine Hcl 50 Mg/Ml Vial IVPUSH 02/21/22 07:47 25 mg ONCE ONE Administration Methylprednisolone Sodium Succinate 125 mg 02/21/22 07:46 02/21/22 08:17 Methylprednisolone Sod Succ 125 Mg/2 Ml Vial IVPUSH 02/21/22 07:47 125 mg ONCE ONE Administration Discharge Plan Discharge Clinical Impression: Urticaria, Allergic reaction Patient Disposition: Home, Self-Care Instructions: Urticaria (ED), General Allergic Reaction (ED) Prescriptions: New diphenhydramine HCl [Benadryl] 25 mg capsule 25 mg PO TID PRN (Reason: allergic reaction) Qty: 30 0RF prednisone 20 mg tablet 60 mg PO DAILY Qty: 12 0RF No Action lovastatin 40 mg tablet 40 mg PO DAILY Qty: 90 8RF diltiazem HCl 240 mg capsule,extended release 24hr 240 mg PO DAILY Qty: 30 8RF Protocol: Hold for SBP/HR < HOLD for SBP < : 90 HOLD for HR < : 60 Rx Instructions: REPLACES atenolol and HCTZ Xarelto 20 mg tablet 20 mg PO DAILY Qty: 30 8RF Rx Instructions: must administer with evening meal fluocinolone 0.025 % cream 1 appl topical BID Qty: 60 3RF hydrochlorothiazide 12.5 mg tablet 12.5 mg PO DAILY Qty: 90 3RF metoprolol succinate 25 mg tablet extended release 24 hr 12.5 mg PO DAILY Qty: 45 3RF multivitamin Tablet 1 tab PO DAILY meclizine 25 mg tablet 25 mg PO DAILY PRN (Reason: Dizziness)
[2022-02-21] MEDS: diphenhydrAMINE HCL 50 MG/ML VIAL 25 MG IVPUSH (08:17)
[2022-02-21] MEDS: methylPREDNISolone Sod Succ 125 MG/2 ML VIAL IVPUSH (08:17)
--- NOTE | 2022-02-21 09:45 | PC.NURSE ---
pt reports feeling better, rash is starting to subside and not as itchy at this time
[2022-02-21 09:55] VITALS: BP 123/64; PULSE 75; RESP 14; TEMP 36.1; O2SAT 95
== END 2022-02-21 10:27 | disposition home or self-care (01) ==
PROVIDERS: Emergency Provider Emergency Medicine; PCP Internal Medicine
DX: L50.9 Urticaria, unspecified (principal); T78.40XA Allergy, unspecified, initial encounter; X58.XXXA Exposure to other specified factors, initial encounter; I10 Essential (primary) hypertension; E78.5 Hyperlipidemia, unspecified; Z79.02 Long term (current) use of antithrombotics/antiplatelets; Z79.899 Other long term (current) drug therapy
CPT/HCPCS: 96374; 96375; 99284; J1200; J2930

== ENCOUNTER 2022-04-08 07:41 | Outpatient (REF) | payer MEDICARE, SELFPAY ==
[2022-04-08 11:42] LABS: Basophils Percent Auto 0.5 % (0-2); Eosinophils Percent Auto 0.7 % (0-4); Hematocrit 41.7 % (37.0-47.0); Hemoglobin 12.9 g/dl (12.0-16.0); Imm Gran Abs Auto 0.08 X10*3/uL (0.00-0.03); Imm Gran Pct Auto 1.9 % (0.0-0.4); Lymphocytes Absolute Auto 1.5 X10*3/uL (1.2-4.9); Lymphocytes Percent Auto 34.4 % (20-40); MANUAL DIFF FLAG SCAN; Mean Corpuscular HGB Conc 30.9 g/dl (31.0-35.0); Mean Corpuscular Hemoglobin 29.7 pg (27.0-33.0); Mean Corpuscular Volume 95.9 fL (80.0-98.0); Mean Platelet Volume 10.3 fL (9.4-12.3); Monocytes Absolute Auto 1.1 X10*3/uL (0.1-1.2); Monocytes Percent Auto 25.7 % (2-11); Neutrophils Absolute Auto 1.6 x10*3/uL (2.0-8.3); Neutrophils Percent Auto 36.8 % (45-73); Platelet Count 351 X10*3/uL (160-400); Red Blood Count 4.35 X10*6/uL (4.20-5.50); Red Cell Distribution Width 13.9 % (11.0-16.0); SCAN SMEAR FLAG 1; White Blood Count 4.2 X10*3/uL (4.8-10.8)
[2022-04-08 12:04] LABS: SLIDE REVIEW VERIFIED
[2022-04-08 12:05] LABS: Alanine Aminotransferase 10 U/L (0-31); Alkaline Phosphatase 79 U/L (39-117); Anion Gap 11 (12-20); Aspartate Amino Transferase 15 U/L (5-31); Bilirubin Total 0.4 mg/dL (0.0-1.0); Blood Urea Nitrogen 16 mg/dL (9-16); Calcium 9.4 mg/dL (8.4-10.2); Carbon Dioxide 31 mmol/L (22-29); Chloride 103 mmol/L (96-108); Cholesterol 204 mg/dL; Estimated Glomerular Filt Rate > 60; Glucose Fasting 98 mg/dL (60-99); HDL Cholesterol 81 mg/dL; LDL Cholesterol Calculated 105 mg/dl; Potassium 4.1 mmol/L (3.3-5.1); Sodium 141 mmol/L (135-145); Total Protein 6.4 g/dL (6.5-8.0); Triglycerides 90 mg/dL
[2022-04-08 12:25] LABS: Thyroid Stimulating Hormone 3.87 uIU/mL (0.32-4.0)
== END 2022-04-08 07:42 | disposition home or self-care (01) ==
LOC: HO.HMGCLDS 07:41
PROVIDERS: PCP Internal Medicine; Visit Provider Internal Medicine
DX: E03.9 Hypothyroidism, unspecified (principal); N28.9 Disorder of kidney and ureter, unspecified; D64.9 Anemia, unspecified; E78.5 Hyperlipidemia, unspecified
CPT/HCPCS: 36415; 80053; 80061; 84443; 85025

== ENCOUNTER 2022-08-26 06:53 | Outpatient (REF) | payer MEDICARE, SELFPAY ==
[2022-08-26 12:01] LABS: Cholesterol 191 mg/dL; HDL Cholesterol 82 mg/dL; LDL Cholesterol Calculated 95 mg/dl; Triglycerides 70 mg/dL
== END 2022-08-26 06:54 | disposition home or self-care (01) ==
LOC: HO.HMGCLDS 06:53
PROVIDERS: PCP Internal Medicine; Visit Provider Internal Medicine
DX: E78.5 Hyperlipidemia, unspecified (principal)
CPT/HCPCS: 36415; 80061

== ENCOUNTER 2022-11-18 11:15 | Outpatient (AMB) | payer MEDICARE, OTHER, SELFPAY ==
[2022-11-18 11:41] VITALS: BP 130/72; PULSE 66; BMI 27.2
--- NOTE | 2022-11-18 11:41 | MHC.OFFVIS ---
Intake Vital Signs 11/18/22 11:41 Height 5 ft 1 in Weight 144 lb 2.917 oz BMI 27.2 BP 130/72 Blood Pressure Location Lt brachial Position Sitting Pulse 66 Intake Visit Reasons: 1 year follow up Advertising Strategist Required: No Allergies ciprofloxacin [From Cipro] Allergy (Mild, Verified 11/18/22 11:45) DIARRHEA,CRAMPING clarithromycin [From Biaxin] Allergy (Mild, Verified 11/18/22 11:45) DIARRHEA,CRAMPING AKI Inhibitors Allergy (Unknown, Verified 11/18/22 11:45) Unknown indomethacin [From INDOCIN] Allergy (Unknown, Verified 11/18/22 11:45) DIZZY lisinopril [LISINOPRIL] Allergy (Unknown, Verified 11/18/22 11:45) DIZZY Medication List - Last Reconciled 11/18/22 by Jeremy Gutierrez MD diltiazem HCl 240 mg See Protocol PO DAILY hydrochlorothiazide 12.5 mg PO DAILY lovastatin 40 mg PO DAILY meclizine 25 mg PO DAILY PRN metoprolol succinate ER 12.5 mg (1/2 x 25 mg) PO DAILY multivitamin 1 tab PO DAILY rivaroxaban (Xarelto) 20 mg PO DAILY HPI HPI Comments History of Present Illness Details 81-year-old female who was seen at [facility] when she presented with COVID-19 infection and atrial fibrillation with rapid ventricular response. She was on atenolol and hydrochlorothiazide which were held and she was started on diltiazem along with Xarelto. It appears she did well and reverted back to sinus rhythm. In follow-up she complained of palpitations to Ella. She had a Holter monitor done. Her Holter monitor did not show atrial fibrillation. No chest pain or shortness of breath. She has first-degree AV block on the ECG. She was started on Toprol XL 12.5 mg once a day. She returns for follow-up today. Blood pressure readings at home are great. It appears she is back on hydrochlorothiazide now. EKG in the office is showing sinus bradycardia. Denying any palpitations, chest discomfort shortness of breath. Occasionally she gets epistaxis which is mild and usually happens after blowing her nose in springtime due to allergies. 11/18/2022: She returns for follow-up. She has been experiencing random chest pain on the right side. These are not exertional. She can point with 1 finger with the pain usually is it lasts for few seconds. She is saying there is no tenderness at the side currently or at the time the pain happens. With activities she does not get any symptoms. Continues to be in sinus rhythm and has no palpitations. Taking medication regularly. [facility] Medical History Aortic stenosis Encephalopathy acute HLD (hyperlipidemia) Hyperlipidemia Hyperlipidemia Hypertension Surgical History History of melanoma excision History of cataract surgery History of hysterectomy History of section H/O rectal polypectomy History of breast lump/mass excision Family History Father Stroke Mother Emphysema lung Social History Household Members: Family Housing: House Do you presently have visiting nurse or other home services: No Alcohol intake: current Alcohol intake frequency: a few times a week Patient Tobacco Use Status: Never used Tobacco e-Cigarette/Vaping Use: Never Used Second Hand Smoke Exposure: No service: No Current occupational status: retired Current occupational exposures/hazards: No Cognitive needs: No Hearing needs: No Vision needs: Yes Review of Systems ENT Reports dizziness Card Denies chest pain, Denies chest pain at rest, Denies chest pain with activity, Denies rapid heart rate, Denies pedal edema, Denies edema, Denies leg edema, Denies lightheadedness, Denies palpitations, Denies dyspnea, Denies dyspnea on exertion and Denies orthopnea Resp Denies cough, Denies dyspnea and Denies dyspnea on exertion GI Denies hematochezia and Denies change in stool character Musc Denies abnormal gait, Reports limited range of motion, Reports muscle cramps, Denies muscle weakness, Denies numbness, Denies radiating pain into limb, Denies stiffness and Denies tingling Neuro Denies abnormal gait, Reports dizziness, Denies numbness and Denies tingling Endo Denies palpitations Physical Exam Vital Signs: Last Vital Signs Pulse 66 11/18/22 11:41 BP 130/72 11/18/22 11:41 BMI result Body Mass Index 27.2 GENERAL APPEARANCE: in no acute distress, well developed, well nourished. NECK/THYROID: no carotid bruit, no jugular venous distention. SKIN: no suspicious lesions, warm and dry. HEART: Systolic murmur aortic area, regular rate and rhythm, S1, S2 normal. LUNGS: clear to auscultation bilaterally. ABDOMEN: normal, bowel sounds present, soft, nontender, nondistended. EXTREMITIES: no clubbing, cyanosis, or edema. PERIPHERAL PULSES: equal. NEUROLOGIC: nonfocal, alert and oriented. PSYCH: mood/affect full range. Office Procedures EKG Details: Sinus rhythm 66 beats per minute, first-degree AV block with DE interval 220 milliseconds, QTC 413 milliseconds. [id number], Complete Assessment & Plan Assessment & Plan (1) PAF (paroxysmal atrial fibrillation): Comment: On diltiazem and Xarelto. Code(s): I48.0 - Paroxysmal atrial fibrillation (2) Hypertension: Code(s): I10 - Essential (primary) hypertension Qualifiers: Hypertension type: essential hypertension Qualified Code(s): I10 - Essential (primary) hypertension (3) Chest pain: Comment: Non anginal Code(s): R07.9 - Chest pain, unspecified Plan 81-year-old female who is here for follow-up. She has background of paroxysmal atrial fibrillation. She is on diltiazem, metoprolol and Xarelto. No bleeding concerns. She has known anginal chest pain currently. No further workup is required for this. Blood pressure control is good. She will see us back in few months. Thank you for allowing me to participate in the care of your patient. Please feel free to contact me if you have any questions. Coding Level of Care Code Est Pt Level 3 (58678) Diagnoses PAF (paroxysmal atrial fibrillation) I48.0 Essential hypertension I10 Hypertension type: essential hypertension Chest pain R07.9 CPT Codes EKG - CPT: [id number], Complete ([id number])
== END 2022-11-18 12:11 | disposition home or self-care (01) ==
PROVIDERS: PCP Internal Medicine; Referring Provider Internal Medicine; Visit Provider Internal Medicine Cardiovascular Disease
DX: I48.0 Paroxysmal atrial fibrillation (principal); I10 Essential (primary) hypertension; R07.9 Chest pain, unspecified
CPT/HCPCS: 93010; 99213

== ENCOUNTER → 2022-11-18 11:15 | Outpatient (BNVA) | payer MEDICARE, SELFPAY | PROVIDERS: PCP Internal Medicine; Referring Provider Internal Medicine; Visit Provider Internal Medicine Cardiovascular Disease | DX: R07.9 Chest pain, unspecified (principal); I48.0 Paroxysmal atrial fibrillation; I44.0 Atrioventricular block, first degree; I10 Essential (primary) hypertension | CPT/HCPCS: 93005; 99212 ==

== ENCOUNTER 2022-12-21 07:02 | Outpatient (REF) | payer MEDICARE, OTHER, SELFPAY ==
[2022-12-21 12:17] LABS: Cholesterol 196 mg/dL (<200); HDL Cholesterol 92 mg/dL (>40); LDL Cholesterol Calculated 87 mg/dL (<100); Triglycerides 88 mg/dL (<150)
== END 2022-12-21 07:03 | disposition home or self-care (01) ==
LOC: HO.HMGCLDS 07:02
PROVIDERS: PCP Internal Medicine; Visit Provider Internal Medicine
DX: E78.5 Hyperlipidemia, unspecified (principal)
CPT/HCPCS: 36415; 80061

== ENCOUNTER 2022-12-29 09:42 | Outpatient (AMB) | payer MEDICARE, OTHER, SELFPAY ==
[2022-12-29 10:15] VITALS: BP 140/68; PULSE 60; O2SAT 99; BMI 27.3
--- NOTE | 2022-12-29 10:15 | MHC.PC.OV ---
Vital Signs 12/29/22 10:15 Height 5 ft 1 in Weight 144 lb 8 oz BMI 27.3 BP 140/68 H Blood Pressure Location Lt brachial Position Sitting Pulse 60 Pulse Source Pulse Oximeter Pulse Oximetry (%) 99 Oxygen Delivery Method Room Air Intake Visit Reasons: 4 month f/u Allergies ciprofloxacin [From Cipro] Allergy (Mild, Verified 12/29/22 10:15) DIARRHEA,CRAMPING clarithromycin [From Biaxin] Allergy (Mild, Verified 12/29/22 10:15) DIARRHEA,CRAMPING AKI Inhibitors Allergy (Unknown, Verified 12/29/22 10:15) Unknown indomethacin [From INDOCIN] Allergy (Unknown, Verified 12/29/22 10:15) DIZZY lisinopril [LISINOPRIL] Allergy (Unknown, Verified 12/29/22 10:15) DIZZY Medication List - Last Reconciled 12/29/22 by Michael Edmond MD diltiazem HCl 240 mg See Protocol PO DAILY hydrochlorothiazide 12.5 mg PO DAILY lovastatin 40 mg PO DAILY meclizine 25 mg PO DAILY PRN metoprolol succinate ER 12.5 mg (1/2 x 25 mg) PO DAILY multivitamin 1 tab PO DAILY rivaroxaban (Xarelto) 20 mg PO DAILY Tobacco use date assessed: 09/01/22 Fall risk assessment: No Falls in past year Last assessed Fall Risk: 12/29/22 Dental Screening Dental Screen Date: 12/29/22 Did you have a dental visit in the last 12 months?: Yes Did you have a dental problem in the last 6 months where you did not have access to dental care?: No Was dental information given to patient?: Patient has dentist HPI 4 month f/u HPI Details HTN and hyperlip on rx; doing well; compliant [facility] Medical History Hyperlipidemia Hyperlipidemia Aortic stenosis Encephalopathy acute HLD (hyperlipidemia) Hypertension Surgical History History of melanoma excision History of cataract surgery History of hysterectomy History of section H/O rectal polypectomy History of breast lump/mass excision Family History Father Stroke Mother Emphysema lung Social History Household Members: Family Housing: House Do you presently have visiting nurse or other home services: No Alcohol intake: current Alcohol intake frequency: a few times a week Patient Tobacco Use Status: Never used Tobacco e-Cigarette/Vaping Use: Never Used Second Hand Smoke Exposure: No service: No Current occupational status: retired Current occupational exposures/hazards: No Cognitive needs: No Hearing needs: No Vision needs: Yes Questionnaire PHQ-9 Over the last 2 weeks, how often have you been bothered by any of the following problems? 1. Little interest or pleasure in doing things: not at all 2. Feeling down, depressed, or hopeless: not at all 3. Trouble falling or staying asleep, or sleeping too much: not at all 4. Feeling tired or having little energy: not at all 5. Poor appetite or overeating: not at all 6. Feeling bad about yourself - or that you are a failure or have let yourself or your family down: not at all 7. Trouble concentrating on things, such as reading the newspaper or watching television: not at all 8. Moving or speaking so slowly that other people could have noticed. Or the opposite - being so fidgety or restless that you have been moving around a lot more than usual: not at all 9. Thoughts that you would be better off or of hurting yourself in some way: not at all Total score: 0 Depression Screening Interpretation: Negative Depression Screening Done: Yes Source: Developed by Drs. Aaron Galeana, Mark George and colleagues, with an educational jhoana from [employer]. Thrive Questionnaire Date Thrive assessed: 04/16/22 AUDIT C Alcohol Use Questionnaire (AUDIT-C) 1. How often do you have a drink containing alcohol?: Never 3. How often do you have six or more drinks on one occasion?: Never Total Score: 0 Score Reviewed/Action Taken: Yes KENNETH-7 AMB Questionnaire KENNETH-7 Date KENNETH - 7 assessed: 04/16/22 Source: Developed by Drs. Aaron Galeana, Mark George and colleagues, with an educational jhoana from [employer]. Review of Systems Const Denies chills, Denies headache(s) and Denies weight loss ENT Denies headache(s) Card Denies chest pain, Denies syncope, Denies irregular heart rhythm and Denies dyspnea Resp Denies chest congestion, Denies cough and Denies dyspnea GI Denies abdominal pain, Denies change in stool character, Denies nausea and Denies vomiting Musc Denies deformity and Denies joint swelling Neuro Denies syncope and Denies headache(s) Physical exam (Primary Care) Vital Signs: Last Vital Signs Pulse 60 12/29/22 10:15 BP 140/68 H 12/29/22 10:15 Pulse Ox 99 12/29/22 10:15 Oxygen Delivery Method Room Air 12/29/22 10:15 BMI result Body Mass Index 27.3 Tobacco/Smoking Status: Tobacco use Status Tobacco use date assessed 09/01/22 12/29/22 10:17 Patient Tobacco Use Status Never used Tobacco 12/29/22 10:17 e-Cigarette/Vaping Use Never Used 12/29/22 10:17 PHQ-9: PHQ-9 Score PHQ-9: Total score 0 12/29/22 10:40 Depression Screening Interpretation: Negative Thrive Assessment: Date of Thrive Assessment Date Thrive assessed 04/16/22 12/29/22 10:17 Const General: cooperative, comfortable, no acute distress and alert Neck Neck: Yes no lymphadenopathy Thyroid: Thyroid normal Resp Effort & Inspection: normal respiratory effort Auscultation: clear to auscultation bilaterally Percussion: percussion normal Cardio Jugular venous distension: no JVD Palpation: normal PMI Rate: regular rate Rhythm: regular rhythm Heart sounds: S1 normal heart sound present and S2 normal heart sound present GI Inspection: Yes normal to inspection Palpation (GI): No hepatosplenomegaly present Skin General skin exam: no rashes or lesions noted Extrem General: Yes no clubbing, cyanosis or edema Assessment and Plan Assessment & Plan (1) Hypertension: Code(s): I10 - Essential (primary) hypertension Plan: stable; same rx (2) Hyperlipidemia: Code(s): E78.5 - Hyperlipidemia, unspecified Plan: stable; same rx Orders: Orders Lipid Panel Today E78.5 - Hyperlipidemia, unspecified Coding Level of Care Code Est Pt Level 3 (06362) Diagnoses Hypertension I10 Hyperlipidemia E78.5
== END 2022-12-29 11:02 | disposition home or self-care (01) ==
PROVIDERS: PCP Internal Medicine; Visit Provider Internal Medicine
DX: I10 Essential (primary) hypertension (principal); E78.5 Hyperlipidemia, unspecified
CPT/HCPCS: 99213

== ENCOUNTER 2023-02-07 23:08 | Emergency (ER) | payer MEDICARE, OTHER, SELFPAY ==
--- NOTE | ~2023-02-07 | XR_ITS ---
EXAMINATION: XR HIP, LEFT CLINICAL INFORMATION: Trauma COMPARISON: None available. TECHNIQUE: Two views of the left hip. AP pelvis. FINDINGS: Alignment across the hips is anatomic. Joint spaces are relatively well-maintained. No acute fracture is seen. Sacroiliac joints and pubic symphysis appear intact. XR/XR hip LT w PEL1V IMPRESSION: No acute findings identified.
--- NOTE | ~2023-02-07 | XR_ITS ---
EXAMINATION: XR TIBIA AND FIBULA, LEFT CLINICAL INFORMATION: Trauma COMPARISON: None available. TECHNIQUE: AP and lateral views of the left tibia and fibula were obtained. FINDINGS: Alignment at the knee and ankle appears anatomic on these views. No acute fracture is seen. Subcutaneous edema suspected throughout the lower leg. XR/XR tibia fibula LT 2V IMPRESSION: No acute osseous findings. Subcutaneous edema suspected throughout the lower leg.
--- NOTE | ~2023-02-07 | XR_ITS ---
EXAMINATION: XR KNEE, LEFT CLINICAL INFORMATION: Fall. COMPARISON: None available. TECHNIQUE: Four views of the left knee. FINDINGS: No evidence of acute fractures or subluxation. Mild joint space narrowing of the medial and patellofemoral compartments. Patella spurring. Small joint effusion. No abnormal soft tissue calcifications. XR/XR knee LT 4V IMPRESSION: 1. No acute fractures or subluxation. 2. Mild degenerative osteoarthritis. 3. Small joint effusion.
--- NOTE | ~2023-02-07 | CT_ITS ---
EXAMINATION: CT LEFT KNEE WITHOUT CONTRAST INDICATION INFORMATION: Trauma COMPARISON: Radiographs from the same day TECHNIQUE: Multidetector helical imaging was performed through the left knee. Coronal and sagittal reformatted images were created. DLP: 189 mGy-cm DOSE LOWERING TECHNIQUES: This CT examination was performed using dose optimization techniques as appropriate, variously including the following: - Automated exposure control - Adjustment of mA and/or kV according to patient size (this includes techniques or standardized protocols for targeted exams were dose is matched to indication/reason for exam; i.e. extremities or head) - Use of iterative reconstruction technique FINDINGS: There is a nondisplaced vertically oriented fracture of the posterior aspect of the lateral tibial plateau near the lateral tubercle. Fracture line is suspected to extend to the posterior aspect of the tibial metaphysis. No significant tibial plateau depression. There is a moderate-sized lipohemarthrosis. Articular alignment across the knee is anatomic. Mild joint space narrowing in the medial and lateral compartments. There is patellar spurring at the attachment sites of the patellar and quadriceps tendons. There is subcutaneous edema anterior to the knee, as well as along the visualized lateral mid calf. Prominent varicosities are noted medially. CT/CT knee LT wo IV con IMPRESSION: Nondisplaced fracture of the lateral tibial plateau. Moderate-sized lipohemarthrosis.
[2023-02-07 23:18] VITALS: BP 152/68; PULSE 78; O2SAT 97
[2023-02-07 23:19] VITALS: BP 132/49; PULSE 72; RESP 16; TEMP 36.9; O2SAT 96; BMI 27.4
--- NOTE | 2023-02-08 00:49 | ED_ITS ---
HPI - General Adult General Chief complaint: Fall Stated complaint: FALL, l KNEE PAIN,-LOC-HEADSTRIKE Time Seen by Provider: 02/08/23 00:42 History of Present Illness HPI narrative: Pt is a 82yo female who presents to the ED with left knee pain. Pt states she slipped in her kitchen while cleaning dishes this evening and landed on her left knee. Denies any HS or LOC. Pt was able to get up but has had difficulty ambulating since then. She notes current 10/10 pain and is unable to bend her knee. She states the pain is starting to radiate down the leg towards the ankle. Pt denies taking any medications for pain. Related Data Home Medications Medication Instructions Recorded Confirmed meclizine 25 mg tablet 25 mg PO PRN Dizziness 04/06/20 12/29/22 multivitamin 1 tab PO DAILY 04/06/20 02/08/23 Previous Rx's Medication Instructions Recorded lovastatin 40 mg tablet 40 mg PO DAILY #90 tabs 06/20/22 rivaroxaban 20 mg tablet (Xarelto) 20 mg PO DAILY #30 tabs 10/30/22 diltiazem HCl 240 mg 240 mg PO DAILY #30 caps 11/27/22 capsule,extended release 24 hr hydrochlorothiazide 12.5 mg tablet 12.5 mg PO DAILY #90 tabs 01/25/23 metoprolol succinate 25 mg 12.5 mg (1/2 x 25 mg) PO DAILY #45 01/25/23 tablet,extended release 24 hr tabs Allergies Allergy/AdvReac Type Severity Reaction Status Date / Time ciprofloxacin [From Cipro] Allergy Mild DIARRHEA,CR Verified 02/07/23 23:24 AMPING clarithromycin [From Biaxin] Allergy Mild DIARRHEA,CR Verified 02/07/23 23:24 AMPING AKI Inhibitors Allergy Unknown Unknown Verified 02/07/23 23:24 indomethacin [From INDOCIN] Allergy Unknown DIZZY Verified 02/07/23 23:24 lisinopril [LISINOPRIL] Allergy Unknown DIZZY Verified 02/07/23 23:24 Review of Systems 2 Constitutional: Constitutional: Denies frequent falls and Denies headache(s) ENT: Denies dizziness and Denies headache(s) Cardiovascular: Cardiovascular: Denies chest pain, Denies syncope and Denies dyspnea Respiratory: Respiratory: Denies dyspnea Musculoskeletal: Musculoskeletal: Reports arthralgias, Reports limited range of motion and Reports radiating pain into limb Neurologic: Denies dizziness, Denies syncope, Denies frequent falls and Denies headache(s) [facility] Past Medical History Medical History Hyperlipidemia Hyperlipidemia Aortic stenosis Encephalopathy acute HLD (hyperlipidemia) Hypertension Surgical History History of melanoma excision History of cataract surgery History of hysterectomy History of section H/O rectal polypectomy History of breast lump/mass excision Family History Family History Father Stroke Mother Emphysema lung Social History Social History Household Members: Family Housing: House Do you presently have visiting nurse or other home services: No Alcohol intake: current Alcohol intake frequency: a few times a week 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 Patient Tobacco Use Status: Never used Tobacco e-Cigarette/Vaping Use: Never Used Second Hand Smoke Exposure: No Advance Directives: No Advance Directives Information Provided: No service: No Current occupational status: retired Current occupational exposures/hazards: No Cognitive needs: No Hearing needs: No Vision needs: Yes Physical Exam ED Vital Signs: Vital Signs - 24 hr 02/07/23 23:19 02/08/23 07:07 02/08/23 10:35 Temperature 98.5 F 98.2 F Pulse Rate 72 70 78 Respiratory Rate 16 16 18 Blood Pressure 132/49 L 135/51 L 129/58 L Pulse Oximetry 96 96 94 Oxygen Delivery Method Room Air Room Air Room Air 02/08/23 12:38 Temperature Pulse Rate 78 Respiratory Rate Blood Pressure 129/58 L Pulse Oximetry 94 Oxygen Delivery Method BMI result Body Mass Index 27.4 Const General: cooperative, no acute distress, alert and awake Orientation/consciousness: patient oriented x3 HENMT Head: Yes normal to inspection, Yes normocephalic and Yes atraumatic Ears: hearing grossly normal bilaterally General nose exam: Normal external nose present Eyes General: appearance normal, both eyes and all related structures Neuro General: patient oriented x3 Extrem Left lower extremity: normal to inspection, no joint enlargement and knee Details: tenderness (severe tenderness to all poles of the patella; mild tenderness down the anterior gannon); no swelling, no abrasions, no ecchymosis, no deformity and no unusual warmth; abnormal ROM (pt unable to actively flex knee), no cyanosis and no edema Course Course Course Narrative: 02/08/23--08--physician observation continued. Vital signs stable. UA appears infected will initiate Ceftin [address] showing nondisplaced fracture of the lateral tibial plateau > knee immobilizer applied. Patient is to be nonweightbearing on LLE Reevaluation(s) Reevaluation #1: PAtient to be transfered to [facility], accepted. Physician observation to end. Time: 18:30 Medications Administered Generic Name Dose Route Start Last Admin Trade Name Freq PRN Reason Stop Dose Admin Cefuroxime Axetil 250 mg 02/08/23 08:45 02/08/23 08:49 Cefuroxime Axetil 250 Mg Tablet PO 250 mg Q12H EDI Administration Diltiazem HCl 240 mg 02/08/23 09:30 02/08/23 10:40 Diltiazem Hcl Cd 240 Mg Cap.Er.Deg PO 240 mg DAILY EDI Administration Protocol Hydrochlorothiazide 12.5 mg 02/08/23 09:30 02/08/23 10:40 Hydrochlorothiazide 12.5 Mg Tablet PO 12.5 mg DAILY EDI Administration Protocol Metoprolol Succinate 12.5 mg 02/08/23 09:30 02/08/23 10:40 Metoprolol Succinate Er 12.5 Mg Halftab.Er.24h PO 12.5 mg DAILY EDI Administration Protocol Multivitamins/Vitamin C 1 tab 02/08/23 09:30 02/08/23 10:40 Multivitamin Tablet PO 1 tab DAILY EDI Administration Tramadol HCl 50 mg 02/08/23 01:24 02/08/23 08:49 Tramadol Hcl 50 Mg Tablet PO 50 mg Q6H PRN Administration Pain, Severe (Pain Scale 7-10) Medical Decision Making Medical Decision Making MDM Narrative: 82-year-old female presents for evaluation of what is described as a mechanical fall. She slipped while doing the dishes. She has left knee pain is unable to bear weight or ambulate. It does not appear that she has sufficient assistance at home to be able to manage ADLs. She will likely require physical therapy and care management evaluation. I sent her for x-ray of the left hip and tib-fib as her knee x-ray was negative. She does have some pain radiating down her lower leg. Will check basic labs and a UA is the patient will likely require physical therapy placement. She has no other somatic complaints. She denies hitting head or losing conscious, there is no obvious trauma to head or neck. Differential Diagnosis Differential Diagnoses: The differential diagnosis associated with the presentation includes (patellar dislocation, proximal tibia/fibular fracture, soft tissue injury, joint effusion, DVT) Lab Data 02/08/23 02:02 02/08/23 02:02 Labs: Lab Results 02/08/23 02/08/23 Range/Units 02:02 02:04 WBC 10.2 (4.8-10.8) X10*3/uL RBC 4.19 L (4.20-5.50) X10*6/uL Hgb 12.4 (12.0-16.0) g/dl Hct 38.0 (37.0-47.0) % MCV 90.7 (80.0-98.0) fL MCH 29.6 (27.0-33.0) pg MCHC 32.6 (31.0-35.0) g/dl RDW 12.8 (11.0-16.0) % Plt Count 244 D (160-400) X10*3/uL MPV 10.0 (9.4-12.3) fL Immature Gran % (Auto) Cancelled Neut % (Auto) Cancelled Lymph % (Auto) Cancelled [place] % (Auto) Cancelled Eos % (Auto) Cancelled Baso % (Auto) Cancelled Lymph # (Auto) Cancelled [place] # (Auto) Cancelled Eos # (Auto) Cancelled Baso # (Auto) Cancelled Abs Immat Gran (auto) Cancelled Absolute Neuts (auto) Cancelled Absolute Nucleated RBC 0.000 (0.0-0.012) X10*3/uL Nucleated RBC % (auto) 0.0 (0.0-0.2) /100WBC Neutrophils % (Manual) 62 (45-73) % Band Neutrophils % 2 L (3-5) % Lymphocytes % (Manual) 12 L (20-40) % Monocytes % (Manual) 18 H (2-11) % Basophils % (Manual) 1 (0-2) % Metamyelocytes % 2 % Promyelocytes % 3 % Abs Neuts (Manual) 6.5 (2.0-8.3) X10*3/uL Lymphocytes # (Manual) 1.2 (1.2-4.9) X10*3/uL Monocytes # (Manual) 1.8 H (0.1-1.2) X10*3/uL Basophils # (Manual) 0.1 (0.0-0.2) X10*3/uL Metamyelocytes # 0.2 X10*3/uL Promyelocytes # 0.3 X10*3/uL Platelet Estimate NORMAL (NORMAL) Plt Morphology Comment NORMAL RBC Morphology NOTED Macrocytosis 2+ (15-30) /OIF Sodium 141 (135-145) mmol/L Potassium 3.7 (3.3-5.1) mmol/L Chloride 107 (96-108) mmol/L Carbon Dioxide 24 (22-29) mmol/L Anion Gap 14 (12-20) BUN 18 H (9-16) mg/dL Creatinine 0.65 (0.5-1.4) mg/dL Estim Creat Clear Calc 58.9 Estimated GFR > 60 Random Glucose 116 H (60-115) mg/dL Calcium 9.0 (8.4-10.2) mg/dL Total Bilirubin 0.4 (0.0-1.0) mg/dL AST 14 (5-31) U/L ALT 10 (0-31) U/L Alkaline Phosphatase 63 (39-117) U/L Total Protein 6.7 (6.5-8.0) g/dL Albumin 3.9 (3.5-5.0) g/dL Lipase 31 (8-78) U/L Urine Color Yellow Urine Appearance Clear Urine pH 6.0 (5.0-9.0) Ur Specific [place] 1.020 (1.005-1.025) Urine Protein Negative (Neg-Trace) mg/dL Urine Glucose (UA) Negative (Negative) mg/dL Urine Ketones Trace (Negative) mg/dL Urine Blood Trace (Negative) Urine Nitrite Negative (Negative) Ur Leukocyte Esterase Trace H (Negative) Urine RBC 3-5 H (0-2) /HPF Urine WBC 6-10 H (0-5) /HPF Ur Squamous Epith Cells 0-2 (0-2) /HPF Urine Bacteria None Seen (None Seen) Hyaline Casts 0-2 (0-2) /LPF Influenza Type A (PCR) NEGATIVE (Negative) Influenza Type B (PCR) NEGATIVE (Negative) RSV RNA Qual (PCR) NEGATIVE (Negative) SARS-CoV-2 RNA (RT-PCR) NEGATIVE (Negative) Discharge Plan Discharge Clinical Impression: Closed fracture of tibial plateau, Acute UTI Patient Disposition: Xfer SNF Transfer Details: [facility] Additional Instructions: Nonweightbearing to left lower extremity. Keep knee immobilizer on Cefuroxime 250mg PO BID for total of 7 days Prescriptions: No Action lovastatin 40 mg tablet 40 mg PO DAILY Qty: 90 8RF Xarelto 20 mg tablet 20 mg PO DAILY Qty: 30 8RF Rx Instructions: must administer with evening meal diltiazem HCl 240 mg capsule,extended release 24hr 240 mg PO DAILY Qty: 30 8RF Protocol: Hold for SBP/HR < HOLD for SBP < : 90 HOLD for HR < : 60 Rx Instructions: REPLACES atenolol and HCTZ hydrochlorothiazide 12.5 mg tablet 12.5 mg PO DAILY Qty: 90 3RF metoprolol succinate 25 mg tablet extended release 24 hr 12.5 mg PO DAILY Qty: 45 3RF multivitamin Tablet 1 tab PO DAILY meclizine 25 mg tablet 25 mg PO PRN (Reason: Dizziness) Referrals: [facility] [Other] [facility] [place] [facility] [Provider Group]
[2023-02-08 02:12] LABS: Hemoglobin 12.4 g/dl (12.0-16.0); Mean Corpuscular HGB Conc 32.6 g/dl (31.0-35.0); Mean Corpuscular Hemoglobin 29.6 pg (27.0-33.0); Mean Corpuscular Volume 90.7 fL (80.0-98.0); Platelet Count 244 X10*3/uL (160-400); Red Blood Count 4.19 X10*6/uL (4.20-5.50); Red Cell Distribution Width 12.8 % (11.0-16.0); White Blood Count 10.2 X10*3/uL (4.8-10.8)
[2023-02-08 02:14] LABS: Bacteria Urine None Seen (None Seen); Hyaline Casts Urine 0-2 /LPF (0-2); Squamous Epithelial Cell Urine 0-2 /HPF (0-2)
[2023-02-08 02:17] LABS: Appearance Urine Clear; Color Urine Yellow; Glucose Urine UA Negative (Negative); Leukocyte Esterase Urine Trace (Negative); Nitrite Urine Negative (Negative); UMIC TRIGGER UACC YES; Urine Blood Trace (Negative); Urine Ketones Trace mg/dL (Negative); Urine Protein Negative (Neg-Trace)
[2023-02-08 02:18] LABS: UACC Culture Trigger YES
[2023-02-08 02:28] LABS: Alanine Aminotransferase 10 U/L (0-31); Albumin Level 3.9 g/dL (3.5-5.0); Alkaline Phosphatase 63 U/L (39-117); Anion Gap 14 (12-20); Aspartate Amino Transferase 14 U/L (5-31); Bilirubin Total 0.4 mg/dL (0.0-1.0); Blood Urea Nitrogen 18 mg/dL (9-16); Carbon Dioxide 24 mmol/L (22-29); Chloride 107 mmol/L (96-108); Creatinine Clr Calc Pharmacy 58.9; Estimated Glomerular Filt Rate > 60; Glucose Random 116 mg/dL (60-115); Lipase 31 U/L (8-78); Potassium 3.7 mmol/L (3.3-5.1); Sodium 141 mmol/L (135-145); Total Protein 6.7 g/dL (6.5-8.0)
[2023-02-08] MEDS: traMADoL HCL 50 MG TABLET PO ×3 (02:37→17:41)
[2023-02-08 02:48] LABS: Influenza A PCR NEGATIVE (Negative); Influenza B PCR NEGATIVE (Negative); Resp Syncy Virus RNA Qual PCR NEGATIVE (Negative); SARS COV2 PCR INHOUSE NEGATIVE (Negative)
[2023-02-08 02:51] LABS: Band Neutrophils Percent 2 % (3-5); Basophils Abs Manual 0.1 X10*3/uL (0.0-0.2); Basophils Percent Manual 1 % (0-2); Lymphocytes Absolute Manual 1.2 X10*3/uL (1.2-4.9); Lymphocytes Percent Manual 12 % (20-40); Macrocytosis 2+ (15-30) /OIF; Metamyelocytes Absolute 0.2 X10*3/uL; Metamyelocytes Percent 2 %; Monocytes Absolute Manual 1.8 X10*3/uL (0.1-1.2); Monocytes Percent Manual 18 % (2-11); Neutrophils Absolute Manual 6.5 X10*3/uL (2.0-8.3); Neutrophils Percent Manual 62 % (45-73); Platelet Estimate NORMAL (NORMAL); Platelet Morphology Comment NORMAL; Promyelocytes Absolute 0.3 X10*3/uL; Promyelocytes Percent 3 %; RBC Morphology NOTED
--- NOTE | 2023-02-08 03:08 | PC.NURSE ---
pt refusing EKG at this time
[2023-02-08 07:07] VITALS: BP 135/51; PULSE 70; RESP 16; TEMP 36.8; O2SAT 96
--- NOTE | 2023-02-08 07:07 | PC.NURSE ---
pt currently sleeping, wakes to verbal stimulus, c/o lt knee pain 10/15 with movement, pt awaiting for pt/casemanagement, call horowitz within reach, will continue to monitor
[2023-02-08] MEDS: cefuroxime axetiL 250 MG TABLET PO (08:49)
--- NOTE | 2023-02-08 08:50 | PC.NURSE ---
patient a&ox3, pt medicated for 11/15 lle pain and for a UTI, pt now non wt bearing due to fx on lle, leg brace applied per request of provider, call horowitz within reach, will continue to monitor
--- NOTE | 2023-02-08 09:45 | PHA.MEDREC ---
Pharmacy Consult ? Medication Reconciliation Pharmacy has completed the medication reconciliation. PHARMACY HAS REVIEWED MED REC DONE BY NURSING
[2023-02-08 10:35] VITALS: BP 129/58; PULSE 78; RESP 18; O2SAT 94
[2023-02-08] MEDS: Metoprolol Succinate ER 12.5 MG HALFTAB.ER.24H PO (10:40)
[2023-02-08] MEDS: hydroCHLOROthiazide 12.5 MG TABLET PO (10:40)
[2023-02-08] MEDS: dilTIAZem HCL CD 240 MG CAP.ER.DEG PO (10:40)
[2023-02-08] MEDS: Multivitamin TABLET 1 TAB PO (10:40)
--- NOTE | 2023-02-08 10:45 | PC.NURSE ---
pt a&ox3, c/o 08/15 pain which she says is much better and refusing tylenol at this time, vss, + csm/pulses to LLE, brace intact, pt medicated with daily meds per order, family at bedside, call horowitz within reach, will continue to monitor
--- NOTE | 2023-02-08 11:45 | PC.NURSE ---
pt in room evaluating patient
[2023-02-08 12:38] VITALS: BP 129/58; PULSE 78; O2SAT 94
[2023-02-08 14:00] VITALS: BP 131/63; PULSE 76; RESP 18; TEMP 36.7; O2SAT 96
--- NOTE | 2023-02-08 14:20 | PC.NURSE ---
patient a&ox3, family at bedside, pt stating shes comfortable at this time, no complaints, + csm/pulses to lle, call horowitz within reach, will continue to monitor
--- NOTE | 2023-02-08 15:45 | MHC.CM.ED ---
Addendum entered by Aliyah Deleon 02/08/23 16:45: [facility] is able to offer a bed. Patient can leave at 630pm. Elly ANDERS booked. [facility] with chart. Patient, Kristin RN and Michelle KING aware. Left message for Rk via telephone at [phone]. Addendum entered by Aliyah Deleon 02/08/23 15:52: Received return telephone call from patient's , Rk. Rk has been to [facility] in the past and feels that would be his first choice for placement for his . Original Note: Received case management consult overnight. Patient came to the ER due to a fall. Found to have a LLE fracture. Per ortho, needs to be Non-weight bearing on that leg. Physical therapy eval completed. Short term rehab is being recommended. Attempted to meet with patient. Patient is currently sleeping. Attempted to speak with patient's , Sam, via telephone at [phone]. Left message requesting return telephone call. It does not appear patient has been inpatient in any facility in the past 30 days. Referral sent to all 3 acute rehabs. Continue to monitor for d/c needs.
[2023-02-08] MEDS: Rivaroxaban 20 MG TABLET PO (17:40)
--- NOTE | 2023-02-08 18:13 | PC.NURSE ---
pt was ambulated to bathroom on pulse ox, his O2 sat was 92-94% while ambulating, patient was dyspnic while ambulating, lungs had in/ex wheezing throughout.
== END 2023-02-08 19:06 | disposition skilled nursing facility (03) ==
PROVIDERS: Physician Assistant; Emergency Provider Internal Medicine; PCP Internal Medicine
DX: S82.142A Displaced bicondylar fracture of left tibia, initial encounter for closed fracture (principal); N39.0 Urinary tract infection, site not specified; M25.562 Pain in left knee; R26.2 Difficulty in walking, not elsewhere classified; R10.2 Pelvic and perineal pain; M25.552 Pain in left hip; W01.0XXA Fall on same level from slipping, tripping and stumbling without subsequent striking against object, initial encounter; Y93.9 Activity, unspecified; Y92.9 Unspecified place or not applicable; Y99.9 Unspecified external cause status; Z20.822 Contact with and (suspected) exposure to COVID-19; Z20.828 Contact with and (suspected) exposure to other viral communicable diseases; Z79.899 Other long term (current) drug therapy
CPT/HCPCS: 0241U; 73502; 73564; 73590; 73700; 80053; 81001; 83690; 85007; 85027; 87086; 97162; 99284; 99285

== ENCOUNTER 2023-03-26 14:02 | Outpatient (AMB) | payer MEDICARE, OTHER, SELFPAY ==
[2023-03-26 14:04] VITALS: BP 130/60; PULSE 70; O2SAT 99
--- NOTE | 2023-03-26 14:04 | MHC.PC.OV ---
Vital Signs 03/26/23 14:04 Height 5 ft 1 in BMI Reason not done Patient refused/unable BP 130/60 Blood Pressure Location Lt brachial Position Sitting Pulse 70 Pulse Source Pulse Oximeter Pulse Oximetry (%) 99 Oxygen Delivery Method Room Air Intake Visit Reasons: [facility]02/08-02/20-knee pain Retail Sales Advisor Required: No Loading Unit Operator Crimping: Not Required per policy Accompanied by: Self / Same As Patient Allergies ciprofloxacin [From Cipro] Allergy (Mild, Verified 03/26/23 14:05) DIARRHEA,CRAMPING clarithromycin [From Biaxin] Allergy (Mild, Verified 03/26/23 14:05) DIARRHEA,CRAMPING AKI Inhibitors Allergy (Unknown, Verified 03/26/23 14:05) Unknown indomethacin [From INDOCIN] Allergy (Unknown, Verified 03/26/23 14:05) DIZZY lisinopril [LISINOPRIL] Allergy (Unknown, Verified 03/26/23 14:05) DIZZY Medication List - Last Reconciled 03/26/23 by Michael Edmond MD diltiazem HCl 240 mg See Protocol PO DAILY hydrochlorothiazide 12.5 mg PO DAILY lovastatin 40 mg PO DAILY meclizine 25 mg PO PRN metoprolol succinate ER 12.5 mg (1/2 x 25 mg) PO DAILY multivitamin 1 tab PO DAILY rivaroxaban (Xarelto) 20 mg PO DAILY Tobacco use date assessed: 03/26/23 Fall risk assessment: 1 Fall in past year Last assessed Fall Risk: 03/26/23 Dental Screening Dental Screen Date: 03/26/23 Did you have a dental visit in the last 12 months?: Yes Did you have a dental problem in the last 6 months where you did not have access to dental care?: No Was dental information given to patient?: Patient has dentist HPI [facility]02[facility]-knee pain HPI Details left tibial fracture; seeing [facility] and doing well with a brace; minimal weight bearing at present [facility] Medical History Hyperlipidemia Hyperlipidemia Aortic stenosis Encephalopathy acute HLD (hyperlipidemia) Hypertension Surgical History History of melanoma excision History of cataract surgery History of hysterectomy History of section H/O rectal polypectomy History of breast lump/mass excision Family History Father Stroke Mother Emphysema lung Social History Household Members: Family Housing: House Do you presently have visiting nurse or other home services: No Alcohol intake: current Alcohol intake frequency: a few times a week 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 1. Little interest or pleasure in doing things: not at all 2. Feeling down, depressed, or hopeless: not at all 3. Trouble falling or staying asleep, or sleeping too much: not at all 4. Feeling tired or having little energy: not at all 5. Poor appetite or overeating: not at all 6. Feeling bad about yourself - or that you are a failure or have let yourself or your family down: not at all 7. Trouble concentrating on things, such as reading the newspaper or watching television: not at all 8. Moving or speaking so slowly that other people could have noticed. Or the opposite - being so fidgety or restless that you have been moving around a lot more than usual: not at all 9. Thoughts that you would be better off or of hurting yourself in some way: not at all Total score: 0 Depression Screening Interpretation: Negative Depression Screening Done: Yes Source: Developed by Drs. Aaron Galeana, Wendy Tellez, Mark Orlando and colleagues, with an educational jhoana from [employer]. Thrive Questionnaire Date Thrive assessed: 03/26/23 I am a: Patient What is your living situation today?: I have a steady place to live Within the past 12 months, did the food you bought not last and you didn't have the money to get more?: Never true Within the past 12 months, did you worry whether your food would run out before you got money to buy more?: Never true Do you have trouble paying for medicines?: No Do you have trouble getting transportation to medical appointments?: No Do you have trouble paying your heating and electricity bill?: No Do you have trouble taking care of your child, family member or friend?: No Do you have trouble with day-to-day activities such as bathing, preparing meals, shopping, managing finances, etc.?: No Are you currently unemployed and looking for a job?: No Are you interested in more education?: No Please select the resources that you would like help with: None THRIVE Score: 0 AUDIT C Alcohol Use Questionnaire (AUDIT-C) 1. How often do you have a drink containing alcohol?: Never 3. How often do you have six or more drinks on one occasion?: Never Total Score: 0 Score Reviewed/Action Taken: Yes KENNETH-7 AMB Questionnaire KENNETH-7 Date KENNETH - 7 assessed: 03/26/23 Feeling nervous, anxious, or on edge: 0 = Not at all Not being able to stop or control worryin = Not at all Worrying too much about different things: 0 = Not at all Trouble relaxin = Not at all Being so restless that it is hard to sit still: 0 = Not at all Becoming easily annoyed or irritable: 0 = Not at all Feeling afraid as if something awful might happen: 0 = Not at all Total KENNETH-7 score (0-4 normal; 5-9 mild; 10-14 moderate; 15-21 severe): 0 Source: Developed by Drs. Aaron Galeana, Wendy Tellez, Mark Orlando and colleagues, with an educational jhoana from [employer]. Review of Systems Const Denies chills, Denies headache(s) and Denies weight loss ENT Denies headache(s) Card Denies chest pain, Denies syncope, Denies irregular heart rhythm and Denies dyspnea Resp Denies chest congestion, Denies cough and Denies dyspnea GI Denies abdominal pain, Denies change in stool character, Denies nausea and Denies vomiting Musc Denies deformity and Denies joint swelling Neuro Denies syncope and Denies headache(s) Physical exam (Primary Care) Vital Signs: Last Vital Signs Pulse 70 03/26/23 14:04 BP 130/60 03/26/23 14:04 Pulse Ox 99 03/26/23 14:04 Oxygen Delivery Method Room Air 03/26/23 14:04 Tobacco/Smoking Status: Tobacco use Status Tobacco use date assessed 03/26/23 03/26/23 14:11 Patient Tobacco Use Status Never used Tobacco 03/26/23 14:11 e-Cigarette/Vaping Use Never Used 03/26/23 14:11 PHQ-9: PHQ-9 Score PHQ-9: Total score 0 03/26/23 14:11 Depression Screening Interpretation: Negative Thrive Assessment: Date of Thrive Assessment Date Thrive assessed 03/26/23 03/26/23 14:11 Const General: cooperative, comfortable, no acute distress and alert Neck Neck: Yes no lymphadenopathy Thyroid: Thyroid normal Resp Effort & Inspection: normal respiratory effort Auscultation: clear to auscultation bilaterally Percussion: percussion normal Cardio Jugular venous distension: no JVD Palpation: normal PMI Rate: regular rate Rhythm: regular rhythm Heart sounds: S1 normal heart sound present and S2 normal heart sound present GI Inspection: Yes normal to inspection Palpation (GI): No hepatosplenomegaly present Skin General skin exam: no rashes or lesions noted Extrem General: Yes no clubbing, cyanosis or edema Assessment and Plan Assessment & Plan (1) Fracture of left tibia: Code(s): S82.A - Unspecified fracture of shaft of left tibia, initial encounter for closed fracture Plan: cont as per ortho Coding Level of Care Code Est Pt Level 3 (21850) Diagnoses Fracture of left tibia S82.A
== END 2023-03-26 14:23 | disposition home or self-care (01) ==
PROVIDERS: PCP Internal Medicine; Visit Provider Internal Medicine
DX: S82.202A Unspecified fracture of shaft of left tibia, initial encounter for closed fracture (principal)
CPT/HCPCS: 99213

== ENCOUNTER 2023-05-24 10:15 | Outpatient (AMB) | payer MEDICARE, OTHER, SELFPAY ==
[2023-05-24 10:27] VITALS: BP 130/54; PULSE 74; BMI 27.7
--- NOTE | 2023-05-24 10:27 | MHC.OFFVIS ---
Intake Vital Signs 05/24/23 10:27 Height 5 ft 1 in Weight 146 lb 6.191 oz BMI 27.7 BP 130/54 L Blood Pressure Location Lt brachial Position Sitting Pulse 74 Pulse Source Pulse Oximeter Intake Visit Reasons: 6 mth fu Intake Note: pt its here for a 6 mth f/up/ pt states that she states doing fine. 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 Accompanied by: Self / Same As Patient Allergies ciprofloxacin [From Cipro] Allergy (Mild, Verified 03/26/23 14:05) DIARRHEA,CRAMPING clarithromycin [From Biaxin] Allergy (Mild, Verified 03/26/23 14:05) DIARRHEA,CRAMPING AKI Inhibitors Allergy (Unknown, Verified 03/26/23 14:05) Unknown indomethacin [From INDOCIN] Allergy (Unknown, Verified 03/26/23 14:05) DIZZY lisinopril [LISINOPRIL] Allergy (Unknown, Verified 03/26/23 14:05) DIZZY Medication List - Last Reconciled 05/24/23 by Jeremy Gutierrez MD diltiazem HCl 240 mg See Protocol PO DAILY hydrochlorothiazide 12.5 mg PO DAILY lovastatin 40 mg PO DAILY meclizine 25 mg PO PRN metoprolol succinate ER 12.5 mg (1/2 x 25 mg) PO DAILY multivitamin 1 tab PO DAILY rivaroxaban (Xarelto) 20 mg PO DAILY HPI HPI Comments History of Present Illness Details 82-year-old female who was seen at [facility] when she presented with COVID-19 infection and atrial fibrillation with rapid ventricular response. She was on atenolol and hydrochlorothiazide which were held and she was started on diltiazem along with Xarelto. It appears she did well and reverted back to sinus rhythm. In follow-up she complained of palpitations to Ella. She had a Holter monitor done. Her Holter monitor did not show atrial fibrillation. No chest pain or shortness of breath. She has first-degree AV block on the ECG. She was started on Toprol XL 12.5 mg once a day. She returns for follow-up today. Blood pressure readings at home are great. It appears she is back on hydrochlorothiazide now. EKG in the office is showing sinus bradycardia. Denying any palpitations, chest discomfort shortness of breath. Occasionally she gets epistaxis which is mild and usually happens after blowing her nose in springtime due to allergies. 11/18/2022: She returns for follow-up. She has been experiencing random chest pain on the right side. These are not exertional. She can point with 1 finger with the pain usually is it lasts for few seconds. She is saying there is no tenderness at the side currently or at the time the pain happens. With activities she does not get any symptoms. Continues to be in sinus rhythm and has no palpitations. Taking medication regularly. 05/24/23: She returns for follow-up. She unfortunately had a fall with fracture of lateral tibial plateau. This was treated conservatively and she has recovered. She has gone through rehab and is walking independently. She is still complaining of some right-sided random chest pains. She is saying that these happen when she does heavy lifting. She has been taking her medications otherwise. She is taking anticoagulation with Xarelto for paroxysmal atrial fibrillation. Blood pressure is reasonably controlled. 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 Patient Tobacco Use Status: Never used Tobacco e-Cigarette/Vaping Use: Never Used Second Hand Smoke Exposure: No service: No Current occupational status: retired Current occupational exposures/hazards: No Cognitive needs: No Hearing needs: No Vision needs: Yes Review of Systems Const Denies chills, Denies fatigue, Denies fever(s), Denies frequent falls, Denies weakness, Denies weight gain and Denies weight loss ENT Denies dizziness Card Denies chest pain, Denies leg edema, Denies lightheadedness, Denies palpitations, Denies dyspnea and Denies dyspnea on exertion Resp Denies cough, Denies dyspnea and Denies dyspnea on exertion GI Denies hematochezia Musc Denies abnormal gait, Denies muscle weakness, Denies numbness, Denies radiating pain into limb and Denies tingling Neuro Denies abnormal gait, Denies dizziness, Denies frequent falls, Denies numbness, Denies tingling and Denies weakness Endo Denies fatigue and Denies palpitations Physical Exam Vital Signs: Last Vital Signs Pulse 74 05/24/23 10:27 BP 130/54 L 05/24/23 10:27 BMI result Body Mass Index 27.7 GENERAL APPEARANCE: in no acute distress, well developed, well nourished. NECK/THYROID: no carotid bruit, no jugular venous distention. SKIN: no suspicious lesions, warm and dry. HEART: Systolic murmur aortic area, regular rate and rhythm, S1, S2 normal. LUNGS: clear to auscultation bilaterally. ABDOMEN: normal, bowel sounds present, soft, nontender, nondistended. EXTREMITIES: no clubbing, cyanosis, or edema. PERIPHERAL PULSES: equal. NEUROLOGIC: nonfocal, alert and oriented. PSYCH: mood/affect full range. Assessment & Plan Assessment & Plan (1) Chest pain: Comment: Non anginal Code(s): R07.9 - Chest pain, unspecified (2) PAF (paroxysmal atrial fibrillation): Comment: On diltiazem and Xarelto. Code(s): I48.0 - Paroxysmal atrial fibrillation (3) Hypertension: Code(s): I10 - Essential (primary) hypertension Qualifiers: Hypertension type: essential hypertension Qualified Code(s): I10 - Essential (primary) hypertension Plan Pleasant 82-year-old female with paroxysmal atrial fibrillation, hypertension and chest pain. She is stable from AFib point of view and is taking Xarelto, metoprolol and diltiazem. Blood pressure is well controlled currently. She is complaining of chest pains. These are happening with heavy lifting. She is saying she can exercise on treadmill. We will arrange an ETT for her. Follow-up with us in 6 months. If ETT is abnormal then we will arrange further testing accordingly. Thank you for allowing me to participate in the care of your patient. Please feel free to contact me if you have any questions. Orders: Orders CA stress test Today R07.9 - Chest pain, unspecified Coding Level of Care Code Est Pt Level 4 (77793) Diagnoses Chest pain R07.9 PAF (paroxysmal atrial fibrillation) I48.0 Essential hypertension I10 Hypertension type: essential hypertension
== END 2023-05-24 11:11 | disposition home or self-care (01) ==
PROVIDERS: PCP Internal Medicine; Visit Provider Internal Medicine Cardiovascular Disease
DX: R07.9 Chest pain, unspecified (principal); I48.0 Paroxysmal atrial fibrillation; I10 Essential (primary) hypertension
CPT/HCPCS: 99214

== ENCOUNTER → 2023-05-24 10:15 | Outpatient (BNVA) | payer MEDICARE, OTHER, SELFPAY | PROVIDERS: PCP Internal Medicine; Visit Provider Internal Medicine Cardiovascular Disease | DX: R07.9 Chest pain, unspecified (principal); I48.0 Paroxysmal atrial fibrillation; I10 Essential (primary) hypertension | CPT/HCPCS: 99212 ==

== ENCOUNTER → 2023-06-01 08:39 | Outpatient (REF) | payer MEDICARE, OTHER, SELFPAY ==
--- NOTE | 2023-06-01 08:42 | CA_ITS ---
Acquisition Time: 2023-06-01 09:01:01 Total Exercise Time: 00:05:02 Test Indications: CHEST PAIN Medications: Protocol: LUIS Max HR: 142 BPM 102% of Pred: 139 BPM Max BP: 168/050 mmHG Max Work Load: 5.0 METS Exercise stress test exercise 5 min 2 sec of Luis protocol (staged 2 too fast for patient - reduced speed) 92% MPHR, without anginal symptoms, with isolated PVCs and PAC, with normotensive response to exercise, without EKG changes. Test reviewed with Dr. Gutierrez. Referred By: Jeremy Gutierrez Overread By: Denise Leonard
== END ==
LOC: HO.CARD 08:39
PROVIDERS: PCP Internal Medicine; Visit Provider Internal Medicine Cardiovascular Disease
DX: R07.9 Chest pain, unspecified (principal)
CPT/HCPCS: 93017

== ENCOUNTER → 2023-06-01 08:42 | Outpatient (BNV) | payer MEDICARE, OTHER, SELFPAY | PROVIDERS: PCP Internal Medicine; Visit Provider Nurse Practitioner | DX: I49.1 Atrial premature depolarization (principal); I49.3 Ventricular premature depolarization | CPT/HCPCS: 93016; 93018 ==

== ENCOUNTER 2023-06-21 10:26 | Outpatient (REF) | payer MEDICARE, OTHER, SELFPAY ==
--- NOTE | ~2023-06-21 | MM_ITS ---
EXAMINATION: MM SCREENING DIGITAL BREAST TOMOSYNTHESIS, BILATERAL CLINICAL INFORMATION: Screening. Asymptomatic. The patient has history of right excisional biopsy for benign disease performed in 1989. COMPARISON: Mammography: This study is compared with prior exams dating back to 2019. TECHNIQUE: Digital breast tomosynthesis is performed in both the craniocaudal and mediolateral oblique views along with computer-aided detection (CAD). Synthesized 2D images are generated from the tomosynthesis. FINDINGS: There are scattered areas of fibroglandular density (ACR BI-RADS breast composition Category b). There are no significant masses, abnormal calcifications, or other abnormalities. MM/MM tomosynthesis screening BI IMPRESSION: No mammographic evidence of malignancy. ASSESSMENT: BI-RADS BI-RADS 1 - Negative RECOMMENDATION: Routine annual mammography screening. 1 year F/U This examination should not preclude the clinical evaluation of a suspicious palpable abnormality. This patient's information was entered into a reminder system with a target due date for their next mammogram.
== END 2023-06-21 10:27 | disposition home or self-care (01) ==
LOC: HO.MAMMO 10:26
PROVIDERS: PCP Internal Medicine; Visit Provider Internal Medicine
DX: Z12.31 Encounter for screening mammogram for malignant neoplasm of breast (principal)
CPT/HCPCS: 77063; 77067

== ENCOUNTER → 2023-06-21 10:45 | Outpatient (BNV) | payer MEDICARE, OTHER, SELFPAY | PROVIDERS: PCP Internal Medicine; Visit Provider Radiology Diagnostic Radiology | DX: Z12.31 Encounter for screening mammogram for malignant neoplasm of breast (principal) | CPT/HCPCS: 77063; 77067 ==

== ENCOUNTER 2023-07-22 06:22 | Outpatient (REF) | payer MEDICARE, OTHER, SELFPAY ==
[2023-07-22 10:23] LABS: Basophils Percent Auto 0.5 % (0-2); Eosinophils Absolute Auto 0.1 X10*3/uL (0.0-0.4); Eosinophils Percent Auto 1.1 % (0-4); Hematocrit 41.3 % (37.0-47.0); Hemoglobin 13.3 g/dl (12.0-16.0); Imm Gran Abs Auto 0.18 X10*3/uL (0.00-0.03); Imm Gran Pct Auto 4.1 % (0.0-0.4); Lymphocytes Absolute Auto 1.9 X10*3/uL (1.2-4.9); Lymphocytes Percent Auto 42.3 % (20-40); MANUAL DIFF FLAG SCAN; Mean Corpuscular HGB Conc 32.2 g/dl (31.0-35.0); Mean Corpuscular Hemoglobin 29.9 pg (27.0-33.0); Mean Corpuscular Volume 92.8 fL (80.0-98.0); Mean Platelet Volume 10.8 fL (9.4-12.3); Monocytes Absolute Auto 1.3 X10*3/uL (0.1-1.2); Monocytes Percent Auto 28.7 % (2-11); Neutrophils Percent Auto 23.3 % (45-73); Platelet Count 284 X10*3/uL (160-400); Red Blood Count 4.45 X10*6/uL (4.20-5.50); Red Cell Distribution Width 13.2 % (11.0-16.0); SCAN SMEAR FLAG 1; White Blood Count 4.4 X10*3/uL (4.8-10.8)
[2023-07-22 10:43] LABS: Alanine Aminotransferase 14 U/L (0-31); Albumin Level 4.1 g/dL (3.5-5.0); Alkaline Phosphatase 63 U/L (39-117); Anion Gap 13 (12-20); Aspartate Amino Transferase 19 U/L (5-31); Bilirubin Total 0.4 mg/dL (0.0-1.0); Blood Urea Nitrogen 18 mg/dL (9-16); Calcium 9.4 mg/dL (8.4-10.2); Carbon Dioxide 30 mmol/L (22-29); Chloride 102 mmol/L (96-108); Cholesterol 186 mg/dL (<200); Estimated Glomerular Filt Rate > 60; Glucose Fasting 85 mg/dL (60-99); HDL Cholesterol 91 mg/dL (>40); LDL Cholesterol Calculated 82 mg/dL (<100); Potassium 3.8 mmol/L (3.3-5.1); Sodium 141 mmol/L (135-145); Triglycerides 69 mg/dL (<150)
[2023-07-22 11:02] LABS: Thyroid Stimulating Hormone 4.37 uIU/mL (0.32-4.0)
[2023-07-22 11:03] LABS: SLIDE REVIEW VERIFIED
== END 2023-07-22 06:23 | disposition home or self-care (01) ==
LOC: HO.HMGCLDS 06:22
PROVIDERS: PCP Internal Medicine; Visit Provider Internal Medicine
DX: Z13.0 Encounter for screening for diseases of the blood and blood-forming organs and certain disorders involving the immune mechanism (principal); Z13.29 Encounter for screening for other suspected endocrine disorder; Z13.220 Encounter for screening for lipoid disorders; Z13.9 Encounter for screening, unspecified
CPT/HCPCS: 36415; 80053; 80061; 84443; 85025

== ENCOUNTER 2023-07-29 10:40 | Outpatient (AMB) | payer MEDICARE, OTHER, SELFPAY ==
[2023-07-29 10:49] VITALS: BP 140/60; PULSE 85; O2SAT 99; BMI 27.6
--- NOTE | 2023-07-29 10:49 | MHC.PC.OV ---
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 Accompanied by: Self / Same As Patient Allergies ciprofloxacin [From Cipro] Allergy (Mild, Verified 07/29/23 10:50) DIARRHEA,CRAMPING clarithromycin [From Biaxin] Allergy (Mild, Verified 07/29/23 10:50) DIARRHEA,CRAMPING AKI Inhibitors Allergy (Unknown, Verified 07/29/23 10:50) Unknown indomethacin [From INDOCIN] Allergy (Unknown, Verified 07/29/23 10:50) DIZZY lisinopril [LISINOPRIL] Allergy (Unknown, Verified 07/29/23 10:50) DIZZY Medication List - Last Reconciled 07/30/23 by Michael Edmond MD diltiazem HCl CD 240 mg PO DAILY hydrochlorothiazide 12.5 mg PO DAILY lovastatin 40 mg PO DAILY meclizine 25 mg PO PRN metoprolol succinate ER 12.5 mg (1/2 x 25 mg) PO DAILY multivitamin 1 tab PO DAILY rivaroxaban (Xarelto) 20 mg PO DAILY Tobacco use date assessed: 03/26/23 Fall risk assessment: No Falls in past year Last assessed Fall Risk: 07/29/23 Dental Screening Dental Screen Date: 03/26/23 HPI 4mth f/u HPI Details HTN on Rx; doing well and compliant [facility] Medical History Hyperlipidemia Hyperlipidemia Aortic stenosis Encephalopathy acute HLD (hyperlipidemia) Hypertension Surgical History History of melanoma excision History of cataract surgery History of hysterectomy History of section H/O rectal polypectomy History of breast lump/mass excision Family History Father Stroke Mother Emphysema lung Social History Household Members: Family Housing: House Do you presently have visiting nurse or other home services: No Alcohol intake: current Alcohol intake frequency: a few times a week 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 Aaron Galeana, Wendy Tellez, Mark Orlando and colleagues, with an educational jhoana from [employer]. Review of Systems Const Denies chills, Denies headache(s) and Denies weight loss ENT Denies headache(s) Card Denies chest pain, Denies syncope, Denies irregular heart rhythm and Denies dyspnea Resp Denies chest congestion, Denies cough and Denies dyspnea GI Denies abdominal pain, Denies change in stool character, Denies nausea and Denies vomiting Musc Denies deformity and Denies joint swelling Neuro Denies syncope and Denies headache(s) Physical exam (Primary Care) Vital Signs: Last Vital Signs Pulse 85 07/29/23 10:49 BP 140/60 H 07/29/23 10:49 Pulse Ox 99 07/29/23 10:49 Oxygen Delivery Method Room Air 07/29/23 10:49 BMI result Body Mass Index 27.6 Tobacco/Smoking Status: Tobacco use Status Tobacco use date assessed 03/26/23 07/29/23 10:50 Patient Tobacco Use Status Never used Tobacco 07/29/23 10:50 e-Cigarette/Vaping Use Never Used 07/29/23 10:50 Thrive Assessment: Date of Thrive Assessment Date Thrive assessed 03/26/23 07/29/23 10:50 Const General: cooperative, comfortable, no acute distress and alert Neck Neck: Yes no lymphadenopathy Thyroid: Thyroid normal Resp Effort & Inspection: normal respiratory effort Auscultation: clear to auscultation bilaterally Percussion: percussion normal Cardio Jugular venous distension: no JVD Palpation: normal PMI Rate: regular rate Rhythm: regular rhythm Heart sounds: S1 normal heart sound present and S2 normal heart sound present GI Inspection: Yes normal to inspection Palpation (GI): No hepatosplenomegaly present Skin General skin exam: no rashes or lesions noted Extrem General: Yes no clubbing, cyanosis or edema Assessment and Plan Assessment & Plan (1) Hypertension: Code(s): I10 - Essential (primary) hypertension Plan: stable; same rx Orders: Orders Lipid Panel Today Z13.220 - Encounter for screening for lipoid disorders Coding Level of Care Code Est Pt Level 3 (26169) Diagnoses Hypertension I10
== END 2023-07-29 11:11 | disposition home or self-care (01) ==
PROVIDERS: PCP Internal Medicine; Visit Provider Internal Medicine
DX: I10 Essential (primary) hypertension (principal)
CPT/HCPCS: 99213

== ENCOUNTER 2023-11-20 10:06 | Emergency (ER) | payer MEDICARE, OTHER, SELFPAY ==
[2023-11-20 10:13] VITALS: BP 156/61; PULSE 64; RESP 18; TEMP 36.3; O2SAT 98; BMI 26.2
--- NOTE | 2023-11-20 10:17 | ECG_ITS ---
Test Reason : Dizziness Blood Pressure : / mmHG Vent. Rate : 066 BPM Atrial Rate : 066 BPM P-R Int : 218 ms QRS Dur : 080 ms QT Int : 402 ms P-R-T Axes : 060 002 005 degrees QTc Int : 421 ms Sinus rhythm with 1st degree A-V block Otherwise normal ECG When compared with ECG of 13-FEB-2022 12:09, No significant change was found Referred By: Generic ED Physician Electronically Signed By:SUSANNE BARNETT
[2023-11-20 10:41] LABS: Hematocrit 39.3 % (37.0-47.0); Hemoglobin 13.1 g/dl (12.0-16.0); Mean Corpuscular HGB Conc 33.3 g/dl (31.0-35.0); Mean Corpuscular Hemoglobin 30.1 pg (27.0-33.0); Mean Corpuscular Volume 90.3 fL (80.0-98.0); Mean Platelet Volume 9.6 fL (9.4-12.3); Platelet Count 285 X10*3/uL (160-400); Red Blood Count 4.35 X10*6/uL (4.20-5.50); Red Cell Distribution Width 12.8 % (11.0-16.0)
[2023-11-20 11:07] LABS: Band Neutrophils Percent 2 % (3-5); Basophils Abs Manual 0.1 X10*3/uL (0.0-0.2); Basophils Percent Manual 1 % (0-2); Lymphocytes Percent Manual 19 % (20-40); Monocytes Absolute Manual 1.5 X10*3/uL (0.1-1.2); Monocytes Percent Manual 29 % (2-11); Neutrophils Absolute Manual 2.6 X10*3/uL (2.0-8.3); Neutrophils Percent Manual 49 % (45-73)
[2023-11-20 11:09] LABS: Alanine Aminotransferase 16 U/L (0-31); Albumin Level 3.9 g/dL (3.5-5.0); Alkaline Phosphatase 72 U/L (39-117); Anion Gap 13 (12-20); Aspartate Amino Transferase 18 U/L (5-31); Bilirubin Total 0.4 mg/dL (0.0-1.0); Blood Urea Nitrogen 11 mg/dL (9-16); Calcium 9.6 mg/dL (8.4-10.2); Carbon Dioxide 27 mmol/L (22-29); Chloride 104 mmol/L (96-108); Creatinine Clr Calc Pharmacy 62.9; Estimated Glomerular Filt Rate > 60; Glucose Random 114 mg/dL (60-115); Potassium 3.7 mmol/L (3.3-5.1); Sodium 140 mmol/L (135-145); Total Protein 7.1 g/dL (6.5-8.0)
[2023-11-20 11:10] LABS: Acanthocytes 1+ (0-2) /OIF; Ovalocytes 1+ (5-14) /OIF; RBC Morphology NOTED
[2023-11-20 11:12] LABS: Platelet Estimate NORMAL (NORMAL); Platelet Morphology Comment NORMAL
[2023-11-20 12:00] VITALS: BP 120/47; PULSE 64; RESP 16; TEMP 36.4; O2SAT 99
--- NOTE | 2023-11-20 13:14 | ED_ITS ---
HPI - General Adult General Chief complaint: Dizziness Stated complaint: dizzy nausea Time Seen by Provider: 11/20/23 13:14 History of Present Illness ED Provider: Isaac GIBSON narrative: The patient is a 82-year-old woman with a history of paroxysmal atrial fibrillation on rivaroxaban. She says that during the last 3 weeks she has had a few episodes of dizziness that bothered her a bit but were not severe. This morning when she got out of bed she felt much more dizzy than on the previous occasions. She says it was the same experience only more intense. She says she had to hold onto the wall to get to the bathroom and back to bed. She laid in bed for an hour or 2 to see if her symptoms improved but she still had significant dizziness when she stood up and then had her drive her to the hospital. She has had no associated headache. No associated difficulty speaking. No associated unilateral weakness or facial droop. No nausea or vomiting. While sitting still the patient does not have any symptoms. She notices that the symptoms are much more apparent when she is moving around. No chest pain, no fever, sweats, chills Related Data Home Medications ?Medication ?Instructions ?Recorded ?Confirmed meclizine 25 mg tablet 25 mg PO PRN Dizziness 04/06/20 07/30/23 multivitamin 1 tab PO DAILY 04/06/20 07/30/23 Previous Rx's ?Medication ?Instructions ?Recorded diltiazem HCl 240 mg 240 mg PO DAILY #90 caps 07/03/23 capsule,extended release 24 hr lovastatin 40 mg tablet 40 mg PO DAILY #90 tabs 07/03/23 rivaroxaban 20 mg tablet (Xarelto) 20 mg PO DAILY #30 tabs 08/18/23 hydrochlorothiazide 12.5 mg tablet 12.5 mg PO DAILY #90 tabs 11/19/23 metoprolol succinate 25 mg 12.5 mg (1/2 x 25 mg) PO DAILY #45 11/19/23 tablet,extended release 24 hr tabs ondansetron 4 mg disintegrating 4 mg PO Q8H PRN nausea and 11/20/23 tablet vomiting #10 tabs Allergies Allergy/AdvReac Type Severity Reaction Status Date / Time ciprofloxacin [From Cipro] Allergy Mild DIARRHEA,CR Verified 11/20/23 10:15 AMPING clarithromycin [From Biaxin] Allergy Mild DIARRHEA,CR Verified 11/20/23 10:15 AMPING AKI Inhibitors Allergy Unknown Unknown Verified 11/20/23 10:15 indomethacin [From INDOCIN] Allergy Unknown DIZZY Verified 11/20/23 10:15 lisinopril [LISINOPRIL] Allergy Unknown DIZZY Verified 11/20/23 10:15 Review of Systems 2 Review of Systems: Yes all other systems are reviewed and are negative [facility] Past Medical History Medical History Hyperlipidemia Hyperlipidemia Aortic stenosis Encephalopathy acute HLD (hyperlipidemia) Hypertension Surgical History History of melanoma excision History of cataract surgery History of hysterectomy History of section H/O rectal polypectomy History of breast lump/mass excision Family History Family History Father Stroke Mother Emphysema lung Social History Social History Household Members: Family Housing: House Do you presently have visiting nurse or other home services: No Alcohol intake: current Alcohol intake frequency: a few times a week 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 Patient Tobacco Use Status: Never used Tobacco e-Cigarette/Vaping Use: Never Used Second Hand Smoke Exposure: No Advance Directives: Yes Advance Directives Information Provided: No Advance Directives on File: No Do you have a plan to hurt others: No Plan service: No Current occupational status: retired Current occupational exposures/hazards: No Cognitive needs: No Hearing needs: No Vision needs: Yes Physical Exam ED Vital Signs: Vital Signs - 24 hr 11/20/23 10:13 11/20/23 12:00 11/20/23 15:25 Temperature 97.3 F 97.6 F 97.5 F Pulse Rate 64 64 63 Respiratory Rate 18 16 14 Blood Pressure 156/61 H 120/47 L 145/61 H Pulse Oximetry 98 99 100 Oxygen Delivery Method Room Air Room Air Room Air BMI result Body Mass Index 26.2 Const Other: The patient is a very pleasant older woman who was awake and alert with a normal mental status. She seems grossly neurologically intact and does not seem in acute distress. She did not seem to have any symptoms at rest. HENMT Other: Face is symmetrical. Tongue is midline. Mucous membranes moist. Eyes Other: Pupils are round equal, conjunctivae are clear, extraocular movements are intact, I could not detect any nystagmus. Visual sofia are intact. Neck Neck: Yes no JVD Resp Effort & Inspection: normal respiratory effort Cardio Rate: regular rate Rhythm: regular rhythm Heart sounds: S1 normal heart sound present and S2 normal heart sound present GI Other: Abdomen is soft and nontender Skin Other: Skin is dry and unremarkable Neuro Other: The patient is awake and alert with a normal mental status. She is normally oriented. Cognition is normal. Cranial nerves 2-12 are intact. She moves all extremities normally with normal strength and sensation. Finger-nose is normal. Heel-gannon is normal. Toes go down bilaterally. Gait was grossly normal with simple walking and sitting. When I performed the Yanni-Hallpike maneuver with the head tilted to the right the the patient reported a mild sense of dizziness. When I performed the Florence- Hallpike maneuver with the head tilted to the left the patient experienced an extreme sense of profound dizziness and unsteadiness. Extrem Other: No peripheral edema. Good pulses in the feet. Medications Administered Discontinued Medications Generic Name Dose Route Start Last Admin Trade Name Freq PRN Reason Stop Dose Admin Meclizine HCl 25 mg 11/20/23 15:10 11/20/23 15:22 Meclizine Hcl 25 Mg Tablet PO 11/20/23 15:11 25 mg ONCE ONE Administration Ondansetron HCl 4 mg 11/20/23 15:10 11/20/23 15:22 Ondansetron Odt 4 Mg Tab.Rapdis TRANSLINGU 11/20/23 15:11 4 mg ONCE ONE Administration Medical Decision Making Medical Decision Making [facility] Narrative: The patient is an 82-year-old woman with a history of paroxysmal atrial fibrillation on rivaroxaban who presents with episodes of dizziness over the last 3 weeks that was much worse this morning when she woke up. She does not have any focal findings on exam. Her NIH stroke scale is 0. She had a positive Yanni-Hallpike maneuver with head tilt to the left. She has no associated headache. Clinically the patient is description of the symptoms and her positive Yanni- Hallpike seemed consistent with benign positional vertigo. I found no findings of a stroke. I consulted Physical therapy. Physical therapist came to the emergency room to evaluate and treat the patient. Attempts at treating the patient with the Nabil maneuver and other maneuvers resulted in severe nausea and retching. Ultimately the patient did not seem to be able to tolerate any additional efforts at positional treatments. The patient recovered from her nausea. She once again looked well. She again denied having any headache. She had no focal findings on neurological exam. The plan will be for her to be discharged with a prescription for outpatient physical therapy for ongoing efforts to manage what seems to be positional vertigo. The patient was given a prescription for ondansetron as needed for nausea. Lab Data 11/20/23 10:36 11/20/23 10:36 Labs: Lab Results 11/20/23 Range/Units 10:36 WBC 5.0 (4.8-10.8) X10*3/uL RBC 4.35 (4.20-5.50) X10*6/uL Hgb 13.1 (12.0-16.0) g/dl Hct 39.3 (37.0-47.0) % MCV 90.3 (80.0-98.0) fL MCH 30.1 (27.0-33.0) pg MCHC 33.3 (31.0-35.0) g/dl RDW 12.8 (11.0-16.0) % Plt Count 285 (160-400) X10*3/uL MPV 9.6 (9.4-12.3) fL Immature Gran % (Auto) Cancelled Neut % (Auto) Cancelled Lymph % (Auto) Cancelled Republic % (Auto) Cancelled Eos % (Auto) Cancelled Baso % (Auto) Cancelled Lymph # (Auto) Cancelled Republic # (Auto) Cancelled Eos # (Auto) Cancelled Baso # (Auto) Cancelled Abs Immat Gran (auto) Cancelled Absolute Neuts (auto) Cancelled Absolute Nucleated RBC 0.000 (0.0-0.012) X10*3/uL Nucleated RBC % (auto) 0.0 (0.0-0.2) /100WBC Neutrophils % (Manual) 49 (45-73) % Band Neutrophils % 2 L (3-5) % Lymphocytes % (Manual) 19 L (20-40) % Monocytes % (Manual) 29 H (2-11) % Basophils % (Manual) 1 (0-2) % Abs Neuts (Manual) 2.6 (2.0-8.3) X10*3/uL Lymphocytes # (Manual) 1.0 L (1.2-4.9) X10*3/uL Monocytes # (Manual) 1.5 H (0.1-1.2) X10*3/uL Basophils # (Manual) 0.1 (0.0-0.2) X10*3/uL Platelet Estimate NORMAL (NORMAL) Plt Morphology Comment NORMAL RBC Morphology NOTED Ovalocytes 1+ (5-14) /OIF Acanthocytes (Spur) 1+ (0-2) /OIF Sodium 140 (135-145) mmol/L Potassium 3.7 (3.3-5.1) mmol/L Chloride 104 (96-108) mmol/L Carbon Dioxide 27 (22-29) mmol/L Anion Gap 13 (12-20) BUN 11 (9-16) mg/dL Creatinine 0.62 (0.5-1.4) mg/dL Estim Creat Clear Calc 62.9 Estimated GFR > 60 Random Glucose 114 (60-115) mg/dL Calcium 9.6 (8.4-10.2) mg/dL Total Bilirubin 0.4 (0.0-1.0) mg/dL AST 18 (5-31) U/L ALT 16 (0-31) U/L Alkaline Phosphatase 72 (39-117) U/L Total Protein 7.1 (6.5-8.0) g/dL Albumin 3.9 (3.5-5.0) g/dL Discharge Plan Discharge Clinical Impression: Benign positional vertigo Patient Disposition: Home, Self-Care Additional Instructions: You seem to have a dizziness condition that we called positional vertigo. A physical therapist attempted to perform maneuvers which often offer significant improvement in the symptoms of positional vertigo. I am sorry that your attempts at receiving the maneuvers resulted in such nausea. Please rest and take it easy today and tomorrow. Please plan on using a cane or a walker to help keep yourself steady when walking at home. I have sent a prescription to your pharmacy for some nausea tablets that you may use if you have ongoing nausea. Please contact the physical therapy office on Wednesday by calling [phone] or [phone]. My hope is that you will be able to get an appointment promptly for additional efforts at improving your symptoms. Please also stay in touch with your regular doctor for additional advice as needed. Return to the emergency room if worse. Prescriptions: New ondansetron 4 mg tablet,disintegrating 4 mg PO Q8H PRN (Reason: nausea and vomiting) Qty: 10 0RF No Action lovastatin 40 mg tablet 40 mg PO DAILY Qty: 90 8RF diltiazem HCl 240 mg capsule,extended release 24hr 240 mg PO DAILY Qty: 90 2RF Xarelto 20 mg tablet 20 mg PO DAILY Qty: 30 8RF Rx Instructions: must administer with evening meal metoprolol succinate 25 mg tablet extended release 24 hr 12.5 mg PO DAILY Qty: 45 3RF hydrochlorothiazide 12.5 mg tablet 12.5 mg PO DAILY Qty: 90 3RF multivitamin Tablet 1 tab PO DAILY meclizine 25 mg tablet 25 mg PO PRN (Reason: Dizziness) Ref[place] [facility] [place] Michael Edmond MD [Primary Care Provider] - (Positional vertigo) Print Language: Slovak
--- NOTE | 2023-11-20 13:30 | PC.NURSE ---
patient ambulated with steady gait down hallway
[2023-11-20] MEDS: Ondansetron ODT 4 MG TAB.RAPDIS TRANSLINGU (15:22)
[2023-11-20] MEDS: Meclizine HCl 25 MG TABLET PO (15:22)
[2023-11-20 15:25] VITALS: BP 145/61; PULSE 63; RESP 14; TEMP 36.4; O2SAT 100
[2023-11-20 16:08] VITALS: BP 145/61; PULSE 63; RESP 14; TEMP 36.4; O2SAT 100
== END 2023-11-20 16:09 | disposition home or self-care (01) ==
PROVIDERS: Emergency Provider Emergency Medicine; PCP Internal Medicine
DX: H81.10 Benign paroxysmal vertigo, unspecified ear (principal); R51.9 Headache, unspecified; I10 Essential (primary) hypertension; E78.5 Hyperlipidemia, unspecified; I48.91 Unspecified atrial fibrillation; Z79.01 Long term (current) use of anticoagulants; Z79.899 Other long term (current) drug therapy
CPT/HCPCS: 36415; 80053; 85007; 85027; 93005; 97161; 99284

== ENCOUNTER 2023-11-24 13:19 | Outpatient (AMB) | payer MEDICARE, OTHER, SELFPAY ==
--- NOTE | 2023-11-24 13:23 | MHC.OFFVIS ---
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 Accompanied by: Self / Same As Patient Allergies ciprofloxacin [From Cipro] Allergy (Mild, Verified 11/20/23 10:15) DIARRHEA,CRAMPING clarithromycin [From Biaxin] Allergy (Mild, Verified 11/20/23 10:15) DIARRHEA,CRAMPING AKI Inhibitors Allergy (Unknown, Verified 11/20/23 10:15) Unknown indomethacin [From INDOCIN] Allergy (Unknown, Verified 11/20/23 10:15) DIZZY lisinopril [LISINOPRIL] Allergy (Unknown, Verified 11/20/23 10:15) DIZZY Medication List - Last Reconciled 11/24/23 by Jeremy Gutierrez MD diltiazem HCl CD 240 mg PO DAILY hydrochlorothiazide 12.5 mg PO DAILY lovastatin 40 mg PO DAILY meclizine 25 mg PO PRN metoprolol succinate ER 12.5 mg (1/2 x 25 mg) PO DAILY multivitamin 1 tab PO DAILY ondansetron 4 mg PO Q8H PRN rivaroxaban (Xarelto) 20 mg PO DAILY HPI Comments Details: 82-year-old female who was seen at [facility] when she presented with COVID-19 infection and atrial fibrillation with rapid ventricular response. She was on atenolol and hydrochlorothiazide which were held and she was started on diltiazem along with Xarelto. It appears she did well and reverted back to sinus rhythm. In follow-up she complained of palpitations to Ella. She had a Holter monitor done. Her Holter monitor did not show atrial fibrillation. No chest pain or shortness of breath. She has first-degree AV block on the ECG. She was started on Toprol XL 12.5 mg once a day. She returns for follow-up today. Blood pressure readings at home are great. It appears she is back on hydrochlorothiazide now. EKG in the office is showing sinus bradycardia. Denying any palpitations, chest discomfort shortness of breath. Occasionally she gets epistaxis which is mild and usually happens after blowing her nose in springtime due to allergies. 11/18/2022: She returns for follow-up. She has been experiencing random chest pain on the right side. These are not exertional. She can point with 1 finger with the pain usually is it lasts for few seconds. She is saying there is no tenderness at the side currently or at the time the pain happens. With activities she does not get any symptoms. Continues to be in sinus rhythm and has no palpitations. Taking medication regularly. 05/24/23: She returns for follow-up. She unfortunately had a fall with fracture of lateral tibial plateau. This was treated conservatively and she has recovered. She has gone through rehab and is walking independently. She is still complaining of some right-sided random chest pains. She is saying that these happen when she does heavy lifting. She has been taking her medications otherwise. She is taking anticoagulation with Xarelto for paroxysmal atrial fibrillation. Blood pressure is reasonably controlled. 11/24/2023: She is here for follow-up. No chest discomfort shortness of breath. No palpitations. She has vertigo and is currently taking meclizine for that. Blood pressure well controlled. Continues to be in sinus rhythm. 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 Patient Tobacco Use Status: Never used Tobacco e-Cigarette/Vaping Use: Never Used Second Hand Smoke Exposure: No service: No Current occupational status: retired Current occupational exposures/hazards: No Cognitive needs: No Hearing needs: No Vision needs: Yes Review of Systems Const Denies chills, Denies fatigue, Denies fever(s), Denies frequent falls, Denies weakness, Denies weight gain and Denies weight loss ENT Denies dizziness Card Denies chest pain, Denies leg edema, Denies lightheadedness, Denies palpitations, Denies dyspnea and Denies dyspnea on exertion Resp Denies cough, Denies dyspnea and Denies dyspnea on exertion GI Denies hematochezia Musc Denies abnormal gait, Denies muscle weakness, Denies numbness, Denies radiating pain into limb and Denies tingling Neuro Denies abnormal gait, Denies dizziness, Denies frequent falls, Denies numbness, Denies tingling and Denies weakness Endo Denies fatigue and Denies palpitations Physical Exam Vital Signs: Last Vital Signs Pulse 60 11/24/23 13:24 BP 120/64 11/24/23 13:24 BMI result Body Mass Index 25.9 GENERAL APPEARANCE: in no acute distress. NECK/THYROID: no carotid bruit, no jugular venous distention. SKIN: no suspicious lesions, warm and dry. HEART: Systolic murmur aortic area, regular rate and rhythm, S1, S2 normal. LUNGS: clear to auscultation bilaterally. ABDOMEN: normal, bowel sounds present, soft, nontender, nondistended. EXTREMITIES: no clubbing, cyanosis, or edema. PERIPHERAL PULSES: equal. NEUROLOGIC: nonfocal, alert and oriented. PSYCH: mood/affect full range. Office Procedures EKG Details: Sinus rhythm 60 beats per minute, first-degree AV block with WA interval 232 milliseconds, QTC 390 milliseconds. 74915-[id number], Complete Assessment & Plan Assessment & Plan (1) Hypertension: Code(s): I10 - Essential (primary) hypertension Category: Medical Qualifiers: Hypertension type: essential hypertension Qualified Code(s): I10 - Essential (primary) hypertension (2) Atrial fibrillation, new onset: Code(s): I48.91 - Unspecified atrial fibrillation Category: Medical Plan Pleasant 82 year female who is here for follow-up. Blood pressure is well controlled currently on metoprolol succinate, hydrochlorothiazide and diltiazem. In sinus rhythm with first-degree AV block. On rivaroxaban for anticoagulation. Overall clinically stable. She will see us back in 6 months. Thank you for allowing me to participate in the care of your patient. Please feel free to contact me if you have any questions. Coding Level of Care Code Est Pt Level 4 (70141) Diagnoses Essential hypertension I10 Hypertension type: essential hypertension Atrial fibrillation, new onset I48.91 CPT Codes EKG - CPT: 09092-[id number], Complete ([id number])
[2023-11-24 13:24] VITALS: BP 120/64; PULSE 60; BMI 25.9
== END 2023-11-24 13:44 | disposition home or self-care (01) ==
PROVIDERS: PCP Internal Medicine; Visit Provider Internal Medicine Cardiovascular Disease
DX: I10 Essential (primary) hypertension (principal); I48.91 Unspecified atrial fibrillation
CPT/HCPCS: 93010; 99214

== ENCOUNTER → 2023-11-24 13:19 | Outpatient (BNVA) | payer MEDICARE, OTHER, SELFPAY | PROVIDERS: PCP Internal Medicine; Visit Provider Internal Medicine Cardiovascular Disease | DX: I10 Essential (primary) hypertension (principal); I48.91 Unspecified atrial fibrillation | CPT/HCPCS: 93005; 99212 ==

== ENCOUNTER 2023-12-14 07:30 | Outpatient (REF) | payer MEDICARE, OTHER, SELFPAY ==
[2023-12-14 10:27] LABS: Cholesterol 157 mg/dL (<200); HDL Cholesterol 75 mg/dL (>40); LDL Cholesterol Calculated 71 mg/dL (<100); Triglycerides 58 mg/dL (<150)
== END 2023-12-14 07:31 | disposition home or self-care (01) ==
LOC: HO.HMGCLDS 07:30
PROVIDERS: PCP Internal Medicine; Visit Provider Internal Medicine
DX: Z13.220 Encounter for screening for lipoid disorders (principal)
CPT/HCPCS: 36415; 80061

== ENCOUNTER 2023-12-15 12:00 | Outpatient (RCR) | payer MEDICARE, OTHER, SELFPAY ==
[2023-11-22 13:03] VITALS: BP 144/65; PULSE 60
--- NOTE | 2023-11-24 11:29 | MHC.PT.EP ---
[facility] [place] Office [place] Office [place] Office [address] [phone] F: [phone] F: [phone] F: [phone] F: [phone] Physical Therapy Plan of Care Date of Evaluation: 11/22/23 Date of Surgery: NA Diagnosis: Vertigo Assessment: Binta is a 82 year old female who is referred to PT for Vertigo . She has had mild symptoms of dizziness for about a month which got worse with time. Her symptoms were very intense resulting her coming into the ED 3 days back. On PT examination she presented with intact saccades, smooth pursuit, visual tracking, negative VBI and negative head thrust. She was positive for L PC BPPV. She lives with her and is independent with ADLS however does them slowly due to dizziness. She is retired. She would benefit from skilled PT to address the aforementioned impairments and improve tolerance to functional activities. 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 Pt will be negative for nystagmus or reports of vertigo in all diagnostic positions bilaterally to resolution of BPPV in 4 weeks. Patient to be able to functionally move in all planes and directions without provocation of dizziness to show return to PLOF in 4 weeks. Treatment Plan: Modalities to reduce pain, spasms and effusion. Manual therapy to restore motion and function. Therapeutic exercise to improve strength and flexibility. Neuromuscular re-education for posture and balance. Therapeutic activities to return to functional activities of daily living. Electronically signed by: Regine Bowie PT DPT Please sign and return to therapist. Thank you for your referral.
--- NOTE | 2024-01-28 15:32 | MHC.PT.DC ---
[facility] [place] Office [place] Office [place] Office [address] [phone] F: [phone] F: [phone] F: [phone] F: [phone] Physical Therapy Discharge Report Diagnosis: Vertigo Date of Surgery: NA Date of Evaluation: 11/22/23 Date of Discharge: 01/28/24 Treatments to Date: 7 Cancellations to Date: 0 No Shows to Date: 0 Discharge Status: Achieved Goals Improved Function Independent with HEP Discharge Summary: Binta has had no symptoms of vestibular dysfunction in over a month. She is therefore being d/c from PT. Electronically signed by: Regine Bowie PT DPT Please sign and return to therapist. Thank you for your referral.
== END 2024-01-28 15:33 | disposition home or self-care (01) ==
LOC: HO.PT 12:00
PROVIDERS: PCP Internal Medicine; Visit Provider Emergency Medicine
DX: H81.10 Benign paroxysmal vertigo, unspecified ear (principal)
CPT/HCPCS: 95992; 97112; 97161

== ENCOUNTER 2023-12-29 09:48 | Outpatient (AMB) | payer MEDICARE, OTHER, SELFPAY ==
[2023-12-29 09:53] VITALS: BP 138/82; PULSE 69; O2SAT 98; BMI 25.3
--- NOTE | 2023-12-29 09:53 | MHC.PC.OV ---
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 Accompanied by: Self / Same As Patient Allergies ciprofloxacin [From Cipro] Allergy (Mild, Verified 12/29/23 09:54) DIARRHEA,CRAMPING clarithromycin [From Biaxin] Allergy (Mild, Verified 12/29/23 09:54) DIARRHEA,CRAMPING AKI Inhibitors Allergy (Unknown, Verified 12/29/23 09:54) Unknown indomethacin [From INDOCIN] Allergy (Unknown, Verified 12/29/23 09:54) DIZZY lisinopril [LISINOPRIL] Allergy (Unknown, Verified 12/29/23 09:54) DIZZY Medication List - Last Reconciled 12/29/23 by Michael Edmond MD diltiazem HCl CD 240 mg PO DAILY hydrochlorothiazide 12.5 mg PO DAILY lovastatin 40 mg PO DAILY meclizine 25 mg PO PRN metoprolol succinate ER 12.5 mg (1/2 x 25 mg) PO DAILY multivitamin 1 tab PO DAILY ondansetron 4 mg PO Q8H PRN rivaroxaban (Xarelto) 20 mg PO DAILY triamcinolone acetonide 0.1% 1 appl topical DAILY Tobacco use date assessed: 12/29/23 Fall risk assessment: No Falls in past year Last assessed Fall Risk: 12/29/23 Dental Screening Dental Screen Date: 12/29/23 Did you have a dental visit in the last 12 months?: Yes Did you have a dental problem in the last 6 months where you did not have access to dental care?: No Was dental information given to patient?: Patient has dentist HPI 5mth f/u HPI Details HTN on Rx; doing well; compliant [facility] Medical History Hyperlipidemia Hyperlipidemia Aortic stenosis Encephalopathy acute HLD (hyperlipidemia) Hypertension Surgical History History of melanoma excision History of cataract surgery History of hysterectomy History of section H/O rectal polypectomy History of breast lump/mass excision Family History Father Stroke Mother Emphysema lung Social History Household Members: Family Housing: House Do you presently have visiting nurse or other home services: No Alcohol intake: current Alcohol intake frequency: a few times a week 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 1. Little interest or pleasure in doing things: not at all 2. Feeling down, depressed, or hopeless: not at all 3. Trouble falling or staying asleep, or sleeping too much: not at all 4. Feeling tired or having little energy: not at all 5. Poor appetite or overeating: not at all 6. Feeling bad about yourself - or that you are a failure or have let yourself or your family down: not at all 7. Trouble concentrating on things, such as reading the newspaper or watching television: not at all 8. Moving or speaking so slowly that other people could have noticed. Or the opposite - being so fidgety or restless that you have been moving around a lot more than usual: not at all 9. Thoughts that you would be better off or of hurting yourself in some way: not at all Total score: 0 Depression Screening Interpretation: Negative Depression Screening Done: Yes Source: Developed by Drs. Aaron Galeana, Wendy Tellez, Mark Orlando and colleagues, with an educational jhoana from [employer]. Thrive Questionnaire Date Thrive assessed: 12/29/23 I am a: Patient What is your living situation today?: I have a steady place to live Within the past 12 months, did the food you bought not last and you didn't have the money to get more?: Never true Within the past 12 months, did you worry whether your food would run out before you got money to buy more?: Never true Do you have trouble paying for medicines?: No Do you have trouble getting transportation to medical appointments?: No Do you have trouble paying your heating and electricity bill?: No Do you have trouble taking care of your child, family member or friend?: No Do you have trouble with day-to-day activities such as bathing, preparing meals, shopping, managing finances, etc.?: No Are you currently unemployed and looking for a job?: No Are you interested in more education?: No Please select the resources that you would like help with: None Currently or been in a relationship where the following occur: No concerns reported THRIVE Score: 0 AUDIT C Alcohol Use Questionnaire (AUDIT-C) 1. How often do you have a drink containing alcohol?: Never 3. How often do you have six or more drinks on one occasion?: Never Total Score: 0 Score Reviewed/Action Taken: Yes KENNETH-7 AMB Questionnaire KENNETH-7 Date KENNETH - 7 assessed: 12/29/23 Feeling nervous, anxious, or on edge: 0 = Not at all Not being able to stop or control worryin = Not at all Worrying too much about different things: 0 = Not at all Trouble relaxin = Not at all Being so restless that it is hard to sit still: 0 = Not at all Becoming easily annoyed or irritable: 0 = Not at all Feeling afraid as if something awful might happen: 0 = Not at all Total KENNETH-7 score (0-4 normal; 5-9 mild; 10-14 moderate; 15-21 severe): 0 Source: Developed by Drs. Aaron Galeana, Wendy Tellez, Mark Orlando and colleagues, with an educational jhoana from [employer]. Review of Systems Const Denies chills, Denies headache(s) and Denies weight loss ENT Denies headache(s) Card Denies chest pain, Denies syncope, Denies irregular heart rhythm and Denies dyspnea Resp Denies chest congestion, Denies cough and Denies dyspnea GI Denies abdominal pain, Denies change in stool character, Denies nausea and Denies vomiting Musc Denies deformity and Denies joint swelling Neuro Denies syncope and Denies headache(s) Physical exam (Primary Care) Vital Signs: Last Vital Signs Pulse 69 10/23/24 09:53 BP 138/82 12/29/23 09:53 Pulse Ox 98 12/29/23 09:53 Oxygen Delivery Method Room Air 12/29/23 09:53 BMI result Body Mass Index 25.3 Tobacco/Smoking Status: Tobacco use Status Tobacco use date assessed 12/29/23 12/29/23 09:59 Patient Tobacco Use Status Never used Tobacco 12/29/23 09:59 e-Cigarette/Vaping Use Never Used 12/29/23 09:59 PHQ-9: PHQ-9 Score PHQ-9: Total score 0 12/29/23 10:39 Depression Screening Interpretation: Negative Thrive Assessment: Date of Thrive Assessment Date Thrive assessed 12/29/23 12/29/23 09:59 Currently or been in a relationship where the following occur: No concerns reported Const General: cooperative, comfortable, no acute distress and alert Neck Neck: Yes no lymphadenopathy Thyroid: Thyroid normal Resp Effort & Inspection: normal respiratory effort Auscultation: clear to auscultation bilaterally Percussion: percussion normal Cardio Jugular venous distension: no JVD Palpation: normal PMI Rate: regular rate Rhythm: regular rhythm Heart sounds: S1 normal heart sound present and S2 normal heart sound present GI Inspection: Yes normal to inspection Palpation (GI): No hepatosplenomegaly present Skin General skin exam: no rashes or lesions noted Extrem General: Yes no clubbing, cyanosis or edema Office Procedures Flu Questionnaire Does the patient have a severe egg allergy?: No Immunizations Fluarix Triv [id number] (PF) 45 mcg (15 mcg x 3)/0.5 mL IM syringe Performing Provider: Michael Edmond MD [facility] Documented (not given) by: JESUS Cross on 12/29/23 10:39 Reason Not Given: Not Given Coding Level of Care Code Est Pt Level 3 (44642) Diagnoses Hypertension I10 Assessment & Plan Assessment & Plan (1) Hypertension: Code(s): I10 - Essential (primary) hypertension Category: Medical Plan: stable; same rx Orders: Orders Influenza [id number] Immunization Today Z23 - Encounter for immunization Lipid Panel Today Z13.220 - Encounter for screening for lipoid disorders Thyroid Stimulating Hormone Today Z13.29 - Encounter for screening for other suspected endocrine disorder Complete Blood Count Auto Diff Today Z13.0 - Encounter for screening for diseases of the blood and blood-forming organs and certain disorders involving the immune mechanism Comprehensive Galva. Panel Fast Today Z13.9 - Encounter for screening, unspecified XR hip RT min 2V Today M25.559 - Pain in unspecified hip
== END 2023-12-29 10:08 | disposition home or self-care (01) ==
PROVIDERS: PCP Internal Medicine; Visit Provider Internal Medicine
DX: I10 Essential (primary) hypertension (principal); Z23 Encounter for immunization

== ENCOUNTER → 2023-12-29 09:48 | Outpatient (BNVA) | payer MEDICARE, OTHER, SELFPAY | PROVIDERS: PCP Internal Medicine; Visit Provider Internal Medicine | DX: I10 Essential (primary) hypertension (principal); Z79.899 Other long term (current) drug therapy | CPT/HCPCS: 90471; 96127; 99212 ==

== ENCOUNTER 2023-12-31 13:35 | Outpatient (AMB) | payer MEDICARE, OTHER, SELFPAY ==
--- NOTE | 2023-12-31 14:26 | AM.OFFVISNUR ---
Intake Visit Reasons: flu Allergies ciprofloxacin [From Cipro] Allergy (Mild, Verified 12/29/23 09:54) DIARRHEA,CRAMPING clarithromycin [From Biaxin] Allergy (Mild, Verified 12/29/23 09:54) DIARRHEA,CRAMPING AKI Inhibitors Allergy (Unknown, Verified 12/29/23 09:54) Unknown indomethacin [From INDOCIN] Allergy (Unknown, Verified 12/29/23 09:54) DIZZY lisinopril [LISINOPRIL] Allergy (Unknown, Verified 12/29/23 09:54) DIZZY Office Procedures Flu Questionnaire Does the patient have a severe egg allergy?: No Does the patient have severe life threatening allergies?: No Does the patient have a fever or illness today?: No Has the patient ever had Guillain-[place] Syndrome?: No Has the patient ever had any past reaction to a flu shot?: No Assessment & Plan Assessment & Plan Orders: Orders Influenza [id number] Immunization Today Z23 - Encounter for immunization Medications: New Fluarix Triv [id number] (PF) (flu vacc [id number] 6mos up(PF)) 0.5 mL IM ONCE 0.5 mL 0RF NS Z23 - Encounter for immunization
== END 2023-12-31 14:27 | disposition home or self-care (01) ==
PROVIDERS: PCP Internal Medicine; Visit Provider Internal Medicine
DX: Z23 Encounter for immunization (principal)

== ENCOUNTER → 2023-12-31 13:35 | Outpatient (BNVA) | payer MEDICARE, OTHER, SELFPAY | PROVIDERS: PCP Internal Medicine; Visit Provider Internal Medicine | DX: Z23 Encounter for immunization (principal) | CPT/HCPCS: 90471; 90656 ==

== ENCOUNTER 2024-01-17 13:07 | Outpatient (AMB) | payer MEDICARE, OTHER, SELFPAY ==
--- NOTE | 2024-01-17 13:17 | AM.OFFWIN_ITS ---
Intake Vital Signs 01/17/24 13:18 Weight 137 lb BP 126/64 Blood Pressure Location Rt brachial Position Sitting Pulse 73 Pulse Source Pulse Oximeter Temp 97.6 F Temp Source Oral Pulse Oximetry (%) 95 Oxygen Delivery Method Room Air Intake Visit Reasons: EP cold, cough, mucous, no mouth taste Intake Note: Patient here for cough, mucus, loss of taste which has been present for about 1 1/2 week Patient Tobacco Use Status: Never used Tobacco Allergies ciprofloxacin [From Cipro] Allergy (Mild, Verified 01/17/24 13:20) DIARRHEA,CRAMPING clarithromycin [From Biaxin] Allergy (Mild, Verified 01/17/24 13:20) DIARRHEA,CRAMPING AKI Inhibitors Allergy (Unknown, Verified 01/17/24 13:20) Unknown indomethacin [From INDOCIN] Allergy (Unknown, Verified 01/17/24 13:20) DIZZY lisinopril [LISINOPRIL] Allergy (Unknown, Verified 01/17/24 13:20) DIZZY Do you need a note to return to daycare/school/sports/work: No HPI HPI Comments History of Present Illness Details Patient is an 83-year-old female complaining of 10 days of no taste, a productive cough with yellow and green sputum. She denies any head congestion, sinus pain, ear pain, fevers, shortness of breath or wheezing. She has not tried any vrzf-sda-qbecpkt medications to make herself feel better. She has not tested for COVID. She is able to eat and drink somewhat normally. She denies any history of asthma or COPD and she has not had any sick contacts. 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 Patient Tobacco Use Status: Never used Tobacco e-Cigarette/Vaping Use: Never Used Second Hand Smoke Exposure: No service: No Current occupational status: retired Current occupational exposures/hazards: No Cognitive needs: No Hearing needs: No Vision needs: Yes Review of Systems Const All systems reviewed & are unremarkable except as noted in HPI and below Physical Exam Vital Signs: Last Vital Signs Temp 97.6 F 01/17/24 13:18 Pulse 73 01/17/24 13:18 BP 126/64 01/17/24 13:18 Pulse Ox 95 01/17/24 13:18 Oxygen Delivery Method Room Air 01/17/24 13:18 Const General: cooperative, healthy appearing, comfortable and no acute distress Orientation/consciousness: patient oriented x3 Limitations: no limitations HEENT Head: Yes normal to inspection Ears: hearing grossly normal bilaterally, external ears normal and TM's normal bilaterally General nose exam: Normal external nose present, Normal nares present and No nasal discharge present Face and sinus: Yes normal facial exam and Yes sinuses nontender Mouth: Normal oral and palatal mucosa present and moist mucous membranes Throat: Yes tonsils normal, Yes uvula midline and Yes posterior oropharynx abnormal (Erythema) Eyes General: appearance normal, both eyes and all related structures Neck Neck: Yes normal visual inspection Resp Effort & Inspection: normal respiratory effort, able to speak in complete sentences, Actively coughing, no respiratory distress, not tachypneic, no tripod positioning and no use of accessory muscles Auscultation: clear to auscultation bilaterally (somewhat dim) Cardio Rate: regular rate Rhythm: regular rhythm Heart sounds: normal S1 and S2 Skin General skin exam: no rashes or lesions noted Neuro General: patient oriented x3 Extrem General: Yes normal to inspection and Yes no clubbing, cyanosis or edema Assessment & Plan Assessment & Plan (1) URI (upper respiratory infection): Code(s): J06.9 - Acute upper respiratory infection, unspecified Qualifiers: URI type: unspecified URI Qualified Code(s): J06.9 - Acute upper respiratory infection, unspecified Plan: Patient is satting 95% on room air, well-appearing but dim lung sounds. With this in her age, I will get a chest x-ray. Send Tessalon Perles to her pharmacy and we did test for flu COVID and RSV Plan See above Orders: Orders SARS-CoV2/FLU/RSV Today J06.9 - Acute upper respiratory infection, unspecified XR chest 2V Today R05.9 - Cough, unspecified Medications: New benzonatate 200 mg PO TID PRN 14 caps 0RF cough Coding Level of Care Code Est Pt Level 4 (16669) Diagnoses Upper respiratory tract infection, unspecified type J06.9 URI type: unspecified URI
[2024-01-17 13:18] VITALS: BP 126/64; PULSE 73; TEMP 36.4; O2SAT 95
== END 2024-01-17 14:05 | disposition home or self-care (01) ==
PROVIDERS: PCP Internal Medicine; Visit Provider Physician Assistant
DX: J06.9 Acute upper respiratory infection, unspecified (principal)

== ENCOUNTER 2024-01-17 13:07 | Outpatient (REF) | payer MEDICARE, OTHER, SELFPAY ==
[2024-01-17 16:57] LABS: Influenza A PCR NEGATIVE (Negative); Influenza B PCR NEGATIVE (Negative); Resp Syncy Virus RNA Qual PCR NEGATIVE (Negative); SARS COV2 PCR INHOUSE POSITIVE (Negative)
== END 2024-01-17 13:08 | disposition home or self-care (01) ==
LOC: HO.LAB 13:07
PROVIDERS: Physician Assistant; PCP Internal Medicine
DX: Z13.89 Encounter for screening for other disorder (principal)
CPT/HCPCS: 0241U; 99212

== ENCOUNTER 2024-01-17 13:38 | Outpatient (REF) | payer MEDICARE, OTHER, SELFPAY ==
--- NOTE | ~2024-01-17 | XR_ITS ---
EXAMINATION: XR CHEST CLINICAL INFORMATION: Cough. COMPARISON: April 06, 2020. TECHNIQUE: 2 views of the chest were obtained. FINDINGS: No acute infiltrate, adenopathy, effusion, or pneumothorax is seen. The heart appears normal in size. The aorta is mildly atherosclerotic. There are mild degenerative changes of the spine. XR/XR chest 2V IMPRESSION: No acute finding. Electronically signed by: Dennis Blackman MD 01/17/2024 03:57 PM [facility] [place]
== END 2024-01-17 13:39 | disposition home or self-care (01) ==
LOC: HO.HMGCX 13:38
PROVIDERS: PCP Internal Medicine; Visit Provider Physician Assistant
DX: R05.9 Cough, unspecified (principal); J06.9 Acute upper respiratory infection, unspecified
CPT/HCPCS: 0241U; 71046; 99212

== ENCOUNTER 2024-05-01 13:03 | Outpatient (AMB) | payer MEDICARE, OTHER, SELFPAY ==
--- NOTE | 2024-05-01 13:14 | A.OFFPC_ITS ---
Vital Signs 05/01/24 13:15 Height 5 ft 2 in Weight 136 lb 2 oz BMI 24.9 BP 120/62 Blood Pressure Location Lt brachial Position Sitting Pulse 73 Pulse Source Pulse Oximeter Temp 96.9 F Temp Source Temporal Artery Scan Pulse Oximetry (%) 97 Oxygen Delivery Method Room Air Intake Visit Reasons: 4 month f/u Intake Note: Patient is here to follow up on HTN. Car Cooper Required: No Canal Superintendent: Not Required per policy Accompanied by: Self / Same As Patient Allergies ciprofloxacin [From Cipro] Allergy (Mild, Verified 05/01/24 13:15) DIARRHEA,CRAMPING clarithromycin [From Biaxin] Allergy (Mild, Verified 05/01/24 13:15) DIARRHEA,CRAMPING AKI Inhibitors Allergy (Unknown, Verified 05/01/24 13:15) Unknown indomethacin [From INDOCIN] Allergy (Unknown, Verified 05/01/24 13:15) DIZZY lisinopril [LISINOPRIL] Allergy (Unknown, Verified 05/01/24 13:15) DIZZY Medication List - Last Reconciled 05/01/24 by Michael Edmond MD benzonatate 200 mg PO TID PRN diltiazem HCl CD 240 mg PO DAILY hydrochlorothiazide 12.5 mg PO DAILY lovastatin 40 mg PO DAILY meclizine 25 mg PO QID PRN metoprolol succinate ER 12.5 mg (1/2 x 25 mg) PO DAILY multivitamin 1 tab PO DAILY ondansetron 4 mg PO Q8H PRN rivaroxaban (Xarelto) 20 mg PO DAILY triamcinolone acetonide 0.1% 1 appl topical DAILY Tobacco use date assessed: 05/01/24 Fall risk assessment: No Falls in past year Last assessed Fall Risk: 05/01/24 Dental Screening Dental Screen Date: 05/01/24 Did you have a dental visit in the last 12 months?: Yes Did you have a dental problem in the last 6 months where you did not have access to dental care?: No Was dental information given to patient?: Patient has dentist HPI 4 month f/u HPI Details hypertension and hyperlipidemia on rx; doing well; compliant 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 Patient Tobacco Use Status: Never used Tobacco e-Cigarette/Vaping Use: Never Used Second Hand Smoke Exposure: No service: No Current occupational status: retired Current occupational exposures/hazards: No Cognitive needs: No Hearing needs: No Vision needs: Yes (Glasses) Questionnaire PHQ-9 Over the last 2 weeks, how often have you been bothered by any of the following problems? 1. Little interest or pleasure in doing things: not at all 2. Feeling down, depressed, or hopeless: not at all 3. Trouble falling or staying asleep, or sleeping too much: not at all 4. Feeling tired or having little energy: not at all 5. Poor appetite or overeating: not at all 6. Feeling bad about yourself - or that you are a failure or have let yourself or your family down: not at all 7. Trouble concentrating on things, such as reading the newspaper or watching television: not at all 8. Moving or speaking so slowly that other people could have noticed. Or the opposite - being so fidgety or restless that you have been moving around a lot more than usual: not at all 9. Thoughts that you would be better off or of hurting yourself in some way: not at all Total score: 0 Depression Screening Interpretation: Negative Depression Screening Done: Yes Source: Developed by Drs. Aaron Galeana, Wendy Tellez, Mark Orlando and colleagues, with an educational jhoana from [employer]. Thrive Questionnaire Date Thrive assessed: 05/01/24 I am a: Patient What is your living situation today?: I have a steady place to live Within the past 12 months, did the food you bought not last and you didn't have the money to get more?: Never true Within the past 12 months, did you worry whether your food would run out before you got money to buy more?: Never true Do you have trouble paying for medicines?: No Do you have trouble getting transportation to medical appointments?: No Do you have trouble paying your heating and electricity bill?: No Do you have trouble taking care of your child, family member or friend?: No Do you have trouble with day-to-day activities such as bathing, preparing meals, shopping, managing finances, etc.?: No Are you currently unemployed and looking for a job?: No Are you interested in more education?: No Please select the resources that you would like help with: None Currently or been in a relationship where the following occur: No concerns reported THRIVE Score: 0 AUDIT C Alcohol Use Questionnaire (AUDIT-C) 1. How often do you have a drink containing alcohol?: Never Total Score: 0 KENNETH-7 AMB Questionnaire KENNETH-7 Date KENNETH - 7 assessed: 05/01/24 Feeling nervous, anxious, or on edge: 0 = Not at all Not being able to stop or control worryin = Not at all Worrying too much about different things: 0 = Not at all Trouble relaxin = Not at all Being so restless that it is hard to sit still: 0 = Not at all Becoming easily annoyed or irritable: 0 = Not at all Feeling afraid as if something awful might happen: 0 = Not at all Total KENNETH-7 score (0-4 normal; 5-9 mild; 10-14 moderate; 15-21 severe): 0 Source: Developed by Drs. Aaron Galeana, Wendy Tellez, Mark Orlando and colleagues, with an educational jhoana from [employer]. Review of Systems Const Denies chills, Denies headache(s) and Denies weight loss ENT Denies headache(s) Card Denies chest pain, Denies syncope, Denies irregular heart rhythm and Denies dyspnea Resp Denies chest congestion, Denies cough and Denies dyspnea GI Denies abdominal pain, Denies change in stool character, Denies nausea and Denies vomiting Musc Denies deformity and Denies joint swelling Neuro Denies syncope and Denies headache(s) Physical exam (Primary Care) Vital Signs: Last Vital Signs Temp 96.9 F 05/01/24 13:15 Pulse 73 05/01/24 13:15 BP 120/62 05/01/24 13:15 Pulse Ox 97 05/01/24 13:15 Oxygen Delivery Method Room Air 05/01/24 13:15 BMI result Body Mass Index 24.9 Tobacco/Smoking Status: Tobacco use Status Tobacco use date assessed 05/01/24 05/01/24 13:19 Patient Tobacco Use Status Never used Tobacco 05/01/24 13:19 e-Cigarette/Vaping Use Never Used 05/01/24 13:19 PHQ-9: PHQ-9 Score PHQ-9: Total score 0 05/01/24 13:19 Depression Screening Interpretation: Negative Thrive Assessment: Date of Thrive Assessment Date Thrive assessed 05/01/24 05/01/24 13:19 Currently or been in a relationship where the following occur: No concerns reported Const General: cooperative, comfortable, no acute distress and alert Neck Neck: Yes no lymphadenopathy Thyroid: Thyroid normal Resp Effort & Inspection: normal respiratory effort Auscultation: clear to auscultation bilaterally Percussion: percussion normal Cardio Jugular venous distension: no JVD Palpation: normal PMI Rate: regular rate Rhythm: regular rhythm Heart sounds: S1 normal heart sound present and S2 normal heart sound present GI Inspection: Yes normal to inspection Palpation (GI): No hepatosplenomegaly present Skin General skin exam: no rashes or lesions noted Extrem General: Yes no clubbing, cyanosis or edema Coding Level of Care Code Est Pt Level 3 (53963) Diagnoses Hypertension I10 Assessment & Plan Assessment & Plan (1) Hypertension: Code(s): I10 - Essential (primary) hypertension Category: Medical Plan: stable; same rx
[2024-05-01 13:15] VITALS: BP 120/62; PULSE 73; TEMP 36.1; O2SAT 97; BMI 24.9
== END 2024-05-01 14:40 | disposition home or self-care (01) ==
PROVIDERS: PCP Internal Medicine; Visit Provider Internal Medicine
DX: I10 Essential (primary) hypertension (principal)

== ENCOUNTER → 2024-05-01 13:03 | Outpatient (BNVA) | payer MEDICARE, OTHER, SELFPAY | PROVIDERS: PCP Internal Medicine; Visit Provider Internal Medicine | DX: I10 Essential (primary) hypertension (principal) | CPT/HCPCS: 99212 ==

== ENCOUNTER 2024-05-19 14:32 | Outpatient (RCR) | payer MEDICARE, OTHER, SELFPAY ==
[2024-05-11 12:48] VITALS: BP 143/65; PULSE 61
--- NOTE | 2024-05-11 13:56 | MHC.PT.EP ---
[facility] [place] Office [place] [facility] [place] Office [address] Seth Bhardwaj [address] [phone] F: [phone] F: [phone] F: [phone] F: [phone] Physical Therapy Plan of Care Date of Evaluation: 05/11/24 Date of Surgery: Diagnosis: benign paroxysmal vertigo, unspecified ear Assessment: 83 year old female referred to PT with BPPV. She reports room-spinning dizziness that lasts a few seconds which started 5 days ago when she was getting OOB. OF note, she had PT for L PC BPPV in November 2023. She lives with her and is independent with ADLS however does them slowly due to dizziness. She is retired. On PT examination she presented with intact saccades, smooth pursuit, visual tracking, negative VBI and grossly WFL static balance. [facility] and performed Nabil maneuver with resolution of nystagmus and sx. She would benefit from skilled PT to address the aforementioned impairments and improve tolerance to functional activities. Eduacted pt on BPPV, inner ear anatomy, balance system, and recalibration period. Frequency and Duration: The patient will be seen 2x/week for 4 weeks Short Term Goals: Test all canals for BPPV Transliterator Goals: Patient to be educated on symptoms and indications to return to therapy when needed min 4 weeks. Pt will be negative for nystagmus or reports of vertigo in all diagnostic positions bilaterally to resolution of BPPV in 4 weeks. Patient to be able to functionally move in all planes and directions without provocation of dizziness to show return to PLOF in 4 weeks. Treatment Plan: Modalities to reduce pain, spasms and effusion. Manual therapy to restore motion and function. Therapeutic exercise to improve strength and flexibility. Neuromuscular re-education for posture and balance. Therapeutic activities to return to functional activities of daily living. Electronically signed by: Lynda Casillas PT Please sign and return to therapist. Thank you for your referral.
--- NOTE | 2024-06-22 08:12 | MHC.PT.DC ---
[place] Office [place] Office [place] Office [address] [phone] F: [phone] F: [phone] F: [phone] F: [phone] Physical Therapy Discharge Report Diagnosis: benign paroxysmal vertigo, unspecified ear Date of Surgery: Date of Evaluation: 05/11/24 Date of Discharge: 06/22/24 Treatments to Date: 3 Cancellations to Date: 0 No Shows to Date: 0 Discharge Status: Achieved Goals Improved Function Discharge Summary: Binta arrived stating she is feeling. She has had no wave feeling over the last one week. She was assessed for BPPV and she was negative for BPPV in [facility] and B roll test. She is independent with all HEP. No PT indicated at this time. Electronically signed by: Lynda Casillas PT Please sign and return to therapist. Thank you for your referral.
== END 2024-06-22 08:13 | disposition home or self-care (01) ==
LOC: HO.PT 14:32
PROVIDERS: PCP Internal Medicine; Visit Provider Internal Medicine
DX: H81.10 Benign paroxysmal vertigo, unspecified ear (principal)
CPT/HCPCS: 95992; 97112; 97162

== ENCOUNTER 2024-06-22 10:21 | Outpatient (REF) | payer MEDICARE, OTHER, SELFPAY | END 2024-06-22 10:22 | disposition home or self-care (01) | LOC: HO.MAMMO 10:21 | PROVIDERS: Visit Provider Internal Medicine | DX: Z12.31 Encounter for screening mammogram for malignant neoplasm of breast (principal) | CPT/HCPCS: 77063; 77067 ==

== ENCOUNTER → 2024-06-22 11:00 | Outpatient (BNV) | payer MEDICARE, OTHER, SELFPAY | PROVIDERS: Visit Provider Internal Medicine | DX: Z12.31 Encounter for screening mammogram for malignant neoplasm of breast (principal) | CPT/HCPCS: 77063; 77067 ==

== ENCOUNTER 2024-07-27 06:14 | Outpatient (REF) | payer MEDICARE, OTHER, SELFPAY ==
[2024-07-27 10:27] LABS: Basophils Percent Auto 0.4 % (0-2); Eosinophils Absolute Auto 0.1 X10*3/uL (0.0-0.4); Hematocrit 40.5 % (37.0-47.0); Hemoglobin 13.1 g/dl (12.0-16.0); Imm Gran Abs Auto 0.09 X10*3/uL (0.00-0.03); Imm Gran Pct Auto 1.8 % (0.0-0.4); Lymphocytes Absolute Auto 1.8 X10*3/uL (1.2-4.9); Lymphocytes Percent Auto 37.5 % (20-40); MANUAL DIFF FLAG SCAN; Mean Corpuscular HGB Conc 32.3 g/dl (31.0-35.0); Mean Corpuscular Volume 92.9 fL (80.0-98.0); Mean Platelet Volume 10.9 fL (9.4-12.3); Monocytes Absolute Auto 1.7 X10*3/uL (0.1-1.2); Neutrophils Absolute Auto 1.2 x10*3/uL (2.0-8.3); Neutrophils Percent Auto 24.3 % (45-73); Platelet Count 334 X10*3/uL (160-400); Red Blood Count 4.36 X10*6/uL (4.20-5.50); Red Cell Distribution Width 13.1 % (11.0-16.0); SCAN SMEAR FLAG 1; White Blood Count 4.9 X10*3/uL (4.8-10.8)
[2024-07-27 11:22] LABS: Alanine Aminotransferase 15 U/L (0-31); Albumin Level 4.4 g/dL (3.5-5.0); Alkaline Phosphatase 73 U/L (39-117); Anion Gap 13 (12-20); Aspartate Amino Transferase 22 U/L (5-31); Bilirubin Total 0.4 mg/dL (0.0-1.0); Blood Urea Nitrogen 18 mg/dL (9-16); Calcium 9.5 mg/dL (8.4-10.2); Carbon Dioxide 30 mmol/L (22-29); Chloride 101 mmol/L (96-108); Cholesterol 172 mg/dL (<200); Estimated Glomerular Filt Rate > 60; Glucose Fasting 91 mg/dL (60-99); HDL Cholesterol 84 mg/dL (>40); LDL Cholesterol Calculated 76 mg/dL (<100); Potassium 3.8 mmol/L (3.3-5.1); Sodium 140 mmol/L (135-145); Total Protein 7.4 g/dL (6.5-8.0); Triglycerides 63 mg/dL (<150)
[2024-07-27 11:41] LABS: SLIDE REVIEW VERIFIED
[2024-07-27 11:44] LABS: Folate 13.2 ng/mL (> or = 4.0); Vitamin B12 820 pg/mL (200-900)
[2024-07-27 11:49] LABS: Free T4 (Free Thyroxine) 0.94 ng/dL (0.71-1.85); Thyroid Stimulating Hormone 5.07 uIU/mL (0.32-4.0); Vitamin D 25-OH Total 46.8 ng/mL (>30)
== END 2024-07-27 06:15 | disposition home or self-care (01) ==
LOC: HO.HMGCLDS 06:14
DX: Z00.00 Encounter for general adult medical examination without abnormal findings (principal); Z13.0 Encounter for screening for diseases of the blood and blood-forming organs and certain disorders involving the immune mechanism; Z13.9 Encounter for screening, unspecified; Z13.220 Encounter for screening for lipoid disorders; Z13.29 Encounter for screening for other suspected endocrine disorder; Z13.1 Encounter for screening for diabetes mellitus; Z13.228 Encounter for screening for other metabolic disorders
CPT/HCPCS: 36415; 80053; 80061; 82306; 82607; 82746; 84439; 84443; 85025

== ENCOUNTER 2024-08-11 08:18 | Outpatient (AMB) | payer MEDICARE, OTHER, SELFPAY ==
[2024-08-11 08:55] VITALS: BP 100/62; PULSE 85; RESP 16; TEMP 37.1; O2SAT 98; BMI 24.5
--- NOTE | 2024-08-11 08:55 | AM.OFFWIN_ITS ---
Intake Vital Signs 08/11/24 08:55 Height 5 ft 2 in Weight 134 lb BMI 24.5 BP 100/62 Blood Pressure Location Rt brachial Position Sitting Respiration 16 Pulse 85 Pulse Source Pulse Oximeter Temp 98.7 F Temp Source Oral Pulse Oximetry (%) 98 Oxygen Delivery Method Room Air Intake Visit Reasons: EP-lt leg pain from a fall Intake Note: Pt is here today c/o fall x1week ago Lt knee pain after fall Patient Tobacco Use Status: Never used Tobacco Allergies ciprofloxacin [From Cipro] Allergy (Mild, Verified 08/11/24 09:01) DIARRHEA,CRAMPING clarithromycin [From Biaxin] Allergy (Mild, Verified 08/11/24 09:01) DIARRHEA,CRAMPING AKI Inhibitors Allergy (Unknown, Verified 08/11/24 09:) Unknown indomethacin [From INDOCIN] Allergy (Unknown, Verified 08/11/24 09:) DIZZY lisinopril [LISINOPRIL] Allergy (Unknown, Verified 08/11/24 09:01) DIZZY HPI EP-lt leg pain from a fall HPI Details This is an 83-year-old female patient who reports to the walk-in clinic today with persistent anterior left knee pain status post fall 1 week ago today. She states that she slipped on the floor in her home and fell onto her knees. She also hit the left side of her face around her eye, however reports her knees were mostly affected from the fall. She developed bruising on the front of her knees. She has a history of a left proximal tibial fracture several years ago. She states that that area of her leg has been painful since the fall, and she wants to make sure that the previous injury site was not re- injured. She denies any loss of consciousness during fall, or dizziness following fall. She does have a history of paroxysmal AFib, anticoagulated on Xarelto. She did not want to go to the emergency department for evaluation at the time of the fall. [facility] Medical History Hyperlipidemia Hyperlipidemia Aortic stenosis Encephalopathy acute HLD (hyperlipidemia) Hypertension Surgical History History of melanoma excision History of cataract surgery History of hysterectomy History of section H/O rectal polypectomy History of breast lump/mass excision Family History Father Stroke Mother Emphysema lung Social History Household Members: Family Housing: House Do you presently have visiting nurse or other home services: No Alcohol intake: current Alcohol intake frequency: a few times a week 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 Patient Tobacco Use Status: Never used Tobacco e-Cigarette/Vaping Use: Never Used Second Hand Smoke Exposure: No service: No Current occupational status: retired Current occupational exposures/hazards: No Cognitive needs: No Hearing needs: No Vision needs: Yes (Glasses) Review of Systems Const All systems reviewed & are unremarkable except as noted in HPI and below Physical Exam Vital Signs: Last Vital Signs Temp 98.7 F 08/11/24 08:55 Pulse 85 08/11/24 08:55 Resp 16 08/11/24 08:55 BP 100/62 08/11/24 08:55 Pulse Ox 98 08/11/24 08:55 Oxygen Delivery Method Room Air 08/11/24 08:55 BMI result Body Mass Index 24.5 Const General: cooperative, healthy appearing and no acute distress Limitations: no limitations HEENT Other: Slight yellowish/old-appearing bruising left zygomatic area. Ears: hearing grossly normal bilaterally Neck Neck: Yes no lymphadenopathy Resp Effort & Inspection: normal respiratory effort Auscultation: clear to auscultation bilaterally Cardio Rate: regular rate Rhythm: regular rhythm Skin General skin exam: no rashes or lesions noted Neuro General: no focal motor deficits Gait exam (Neuro): Normal gait present Extrem Other: Purplish bruising anterior aspect of both knees. Left anterior knee with some subpatellar tenderness to palpation. Patient able to stand/ambulate. Full range of motion bilateral knees. No swelling or edema. Psych Appearance: grossly normal Mental Status: mental status grossly normal Speech and movement: Normal speech and movement present Assessment & Plan Assessment & Plan (1) Left anterior knee pain: Code(s): M25.562 - Pain in left knee Plan: XR does not reveal any acute findings. Advised ice application to area and Tylenol as needed. Old facial bruising - no neuro deficits. We discussed importance of ED evaluation in the future s/p falls if there is any head trauma due to anticoagulation. Patient verbalizes understanding of this. She can return to the clinic as needed. All questions were answered and patient agrees to plan. Coding Level of Care Code Est Pt Level 4 (31882) Diagnoses Left anterior knee pain M25.562
== END 2024-08-11 09:57 | disposition home or self-care (01) ==
PROVIDERS: Visit Provider Nurse Practitioner Family
DX: M25.562 Pain in left knee (principal)

== ENCOUNTER 2024-08-11 08:18 | Outpatient (REF) | payer MEDICARE, OTHER, SELFPAY ==
--- NOTE | ~2024-08-11 | XR_ITS ---
EXAMINATION: XR KNEE, LEFT CLINICAL INFORMATION: M25.562 - Pain in left knee COMPARISON: 02/07/2023. CT of the left knee 02/08/2023. TECHNIQUE: Four views of the left knee. FINDINGS: Osteopenia diffusely. Previously seen subtle nondisplaced fracture of the lateral tibial plateau is no longer evident, and appears healed. Fracture lines cannot be visualized. No acute fracture, dislocation, or suspicious bone lesion. Normal alignment. Mild medial compartment and patellofemoral compartment osteoarthrosis. Previously seen joint effusion has resolved. Soft tissues demonstrate medial saphenous varicosities. XR/XR knee LT 4V IMPRESSION: 1. Osteopenia, likely disuse. No acute bony abnormalities. Previously seen nondisplaced fracture of the lateral tibial plateau is no longer evident, likely healed. 2. No evidence of joint effusion. 3. Mild medial and patellofemoral compartment osteoarthrosis. 4. Medial saphenous soft tissue varicosities. Electronically signed by: Ever Leonard MD 08/11/2024 09:52 AM EDT
== END 2024-08-11 08:19 | disposition home or self-care (01) ==
LOC: HO.HMGCX 08:18
PROVIDERS: Visit Provider Nurse Practitioner Family
DX: M25.562 Pain in left knee (principal); I48.0 Paroxysmal atrial fibrillation; Z79.01 Long term (current) use of anticoagulants; Z91.81 History of falling
CPT/HCPCS: 73564; 99212

== ENCOUNTER → 2024-08-11 09:28 | Outpatient (BNV) | payer MEDICARE, OTHER, SELFPAY | PROVIDERS: Visit Provider Radiology Diagnostic Radiology | DX: M25.562 Pain in left knee (principal) | CPT/HCPCS: 73564 ==

== ENCOUNTER 2024-08-21 11:20 | Outpatient (AMB) | payer MEDICARE, OTHER, SELFPAY ==
--- NOTE | 2024-08-21 11:25 | A.OFFPC_ITS ---
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: Not Required per policy Accompanied by: Self / Same As Patient Allergies ciprofloxacin [From Cipro] Allergy (Mild, Verified 08/21/24 12:04) DIARRHEA,CRAMPING clarithromycin [From Biaxin] Allergy (Mild, Verified 08/21/24 12:04) DIARRHEA,CRAMPING AKI Inhibitors Allergy (Unknown, Verified 08/21/24 12:04) Unknown indomethacin [From INDOCIN] Allergy (Unknown, Verified 08/21/24 12:04) DIZZY lisinopril [LISINOPRIL] Allergy (Unknown, Verified 08/21/24 12:04) DIZZY Medication List - Last Reconciled 08/21/24 by Liliane Welch PA-C diltiazem HCl CD 240 mg PO DAILY hydrochlorothiazide 12.5 mg PO DAILY lovastatin 40 mg PO DAILY meclizine 25 mg PO QID PRN metoprolol succinate ER 12.5 mg (1/2 x 25 mg) PO DAILY multivitamin 1 tab PO DAILY ondansetron 4 mg PO Q8H PRN rivaroxaban (Xarelto) 20 mg PO DAILY triamcinolone acetonide 0.1% 1 appl topical DAILY Tobacco use date assessed: 08/21/24 Fall risk assessment: 1 Fall in past year (08/04/24) Last assessed Fall Risk: 08/21/24 Dental Screening Dental Screen Date: 05/01/[address] Edmond/ 4 month f/u HPI Details 83-year-old female with past medical his tory of hypertension, AFib, aortic stenosis, hyperlipidemia, BPPV last seen by Dr. Edmond 04/2023 coming in for transfer of care. Presenting with follow-up for multiple chronic conditions and recent fall. The patient experienced a fall in late July, resulting in a head injury with significant swelling and bruising, but no fractures were identified on X-ray. e reports no ongoing headaches, weakness, or visual disturbances following the incident. Thyroid function tests revealed a high TSH level, indicating possible hypothyroidism, but thyroid hormone levels were normal. The patient experienced vertigo severe enough to require emergency care, which was managed with medication and physical therapy. COUNTS INCLUDE 234 BEDS AT THE [facility] Medical History (Updated 08/21/24 @ 12:10 by Liliane Welch PA-C) Pneumonia due to 2019-nCoV Fracture of left tibia Hyperlipidemia Aortic stenosis Encephalopathy acute HLD (hyperlipidemia) Surgical History History of melanoma excision History of cataract surgery History of hysterectomy History of section H/O rectal polypectomy History of breast lump/mass excision Family History Father Stroke Mother Emphysema lung Social History Household Members: Family Housing: House Do you presently have visiting nurse or other home services: No Alcohol intake: current Alcohol intake frequency: a few times a week 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 Aaron Galeana, Wendy Tellez, Mark Orlando and colleagues, with an educational jhoana from [employer]. Review of Systems Const Denies body aches, Denies chills, Denies fever(s), Denies headache(s) and Denies poor appetite Eyes Reports no additional complaints ENT Denies dizziness and Denies headache(s) Card Denies chest pain, Denies syncope, Denies edema, Denies irregular heart rhythm, Denies lightheadedness and Denies dyspnea Resp Denies cough and Denies dyspnea GI Denies abdominal pain, Denies nausea and Denies vomiting Reports no additional complaints Musc Reports no additional complaints and Denies abnormal gait Skin/Breast Reports system reviewed and no additional complaints, except as documented Neuro Denies abnormal gait, Denies dizziness, Denies syncope and Denies headache(s) Psych Reports no additional complaints Physical exam (Primary Care) Vital Signs: Last Vital Signs Temp 97.3 F 08/21/24 11:27 Pulse 66 08/21/24 11:27 BP 120/70 08/21/24 11:27 Pulse Ox 98 08/21/24 11:27 Oxygen Delivery Method Room Air 08/21/24 11:27 BMI result Body Mass Index 24.5 Tobacco/Smoking Status: Tobacco use Status Tobacco use date assessed 08/21/24 08/21/24 11:42 Patient Tobacco Use Status Never used Tobacco 08/21/24 11:42 e-Cigarette/Vaping Use Never Used 08/21/24 11:42 Thrive Assessment: Date of Thrive Assessment Date Thrive assessed 05/01/24 08/21/24 11:42 Const General: cooperative, healthy appearing, comfortable and no acute distress Orientation/consciousness: patient oriented x3 HENMT Head: Yes normocephalic Ears: hearing grossly normal bilaterally General nose exam: Normal external nose present Eyes General: appearance normal, both eyes and all related structures Conjunctivae: conjunctivae normal Neck Neck: Yes full ROM and Yes no lymphadenopathy Resp Effort & Inspection: normal respiratory effort Auscultation: clear to auscultation bilaterally, no crackles, no rales, no rhonchi and no wheezes Cardio Rate: regular rate Rhythm: regular rhythm Skin General skin exam: no rashes or lesions noted Neuro General: patient oriented x3 Gait exam (Neuro): Normal gait present Extrem General: Yes normal to inspection, Yes full ROM and No edema Psych Affect: normal affect Attitude: cooperative Insight: Good insight present (Psych) Judgement: Good judgement present (Psych) Coding Level of Care Code Est Pt Level 3 (42253) Diagnoses Primary hypertension I10 Hypertension type: primary hypertension Pure hypercholesterolemia E78.00 Hyperlipidemia type: pure hypercholesterolemia PAF (paroxysmal atrial fibrillation) I48.0 Nonrheumatic aortic valve stenosis I35.0 Cardiac valve disease etiology: nonrheumatic Benign paroxysmal positional vertigo, unspecified laterality H81.10 Laterality: unspecified laterality Elevated TSH R79.89 Assessment & Plan Assessment & Plan (1) Hypertension: Code(s): I10 - Essential (primary) hypertension Category: Medical Qualifiers: Hypertension type: primary hypertension Qualified Code(s): I10 - Essential (primary) hypertension Plan: Continue on current blood pressure medication. Avoid salt intake and encourage healthy diet and regular exercise. (2) Hyperlipidemia: Code(s): E78.5 - Hyperlipidemia, unspecified Category: Medical Qualifiers: Hyperlipidemia type: pure hypercholesterolemia Qualified Code(s): E7 8.00 - Pure hypercholesterolemia, unspecified Plan: Avoid foods that are high in cholesterol such as red meat, fried foods, eggs and baked goods. Triglyceride goal of less than 150 and LDL goal of less than 100. Continue on Lovastatin. (3) PAF (paroxysmal atrial fibrillation): Comment: On diltiazem and Xarelto. Code(s): I48.0 - Paroxysmal atrial fibrillation Category: Medical Plan: Continue to follow with film processing utility worker on yearly basis. Rate controlled with Metoprolol and on full oral anticoagulation with Xarelto. Asymptomatic at this time. (4) Aortic stenosis: Comment: Mild Code(s): I35.0 - Nonrheumatic aortic (valve) stenosis Category: Medical Qualifiers: Cardiac valve disease etiology: nonrheumatic Qualified Code(s): I35.0 - Nonrheumatic aortic (valve) stenosis Plan: Continue to follow with film processing utility worker at this time. Asymptomatic at this time. (5) BPPV (benign paroxysmal positional vertigo): Code(s): H81.10 - Benign paroxysmal vertigo, unspecified ear Category: Medical Qualifiers: Laterality: unspecified laterality Qualified Code(s): H81.10 - Benign paroxysmal vertigo, unspecified ear Plan: Has not had any further episodes of vertigo. Has undergone vestibular therapy with good benefit. (6) Elevated TSH: Code(s): R79.89 - Other specified abnormal findings of blood chemistry Category: Medical Plan: Plan to repeat labs in a few months. Plan The patient will continue regular follow-ups with her film processing utility worker for atrial fibrillation management, with the next visit scheduled in a year. Thyroid function will be re-evaluated in a few months to monitor any changes in TSH levels. The patient is advised to maintain her current medication regimen for hypertension and hyperlipidemia, given the well-controlled status of these conditions. An annual physical examination is planned to ensure comprehensive health assessment and to address any new concerns that may arise. The patient is instructed to seek immediate medical attention if she experiences any falls, especially involving head trauma, due to her anticoagulation therapy. Additionally, she is encouraged to report any new or worsening symptoms of vertigo, as well as any significant changes in her cognitive function, to her healthcare provider. This note was constructed using voice recognition software. While every effort has been made to ensure accuracy and software quality tester, still areas may have been included sometimes these areas may affect the content or meeting of the given symptoms. Total time spent caring for the patient today was 30 minutes. This includes time spent before the visit reviewing the chart, time spent during the visit, and time spent after the visit and documentation. Patient was informed and verbally consented to the use of an ambient scribe for clinic note documentation during this visit. Orders: Orders TSH reflex Free T4 1 Month R79.89 - Other specified abnormal findings of blood chemistry Free T4 (Free Thyroxine) 1 Month R79.89 - Other specified abnormal findings of blood chemistry Medications: Discontinued ondansetron Discontinued Reason: Patient Completed Course 4 mg PO Q8H PRN 10 tabs 0RF nausea and vomiting triamcinolone acetonide 0.1% Discontinued Reason: Patient no longer taking 1 appl topical DAILY 15 grams 0RF meclizine Discontinued Reason: Patient no longer taking 25 mg PO QID PRN 30 tabs 2RF dizziness
[2024-08-21 11:27] VITALS: BP 120/70; PULSE 66; TEMP 36.3; O2SAT 98; BMI 24.5
== END 2024-08-21 12:24 | disposition home or self-care (01) ==
LOC: HO.HMCH 11:21
PROVIDERS: PCP Internal Medicine
DX: I10 Essential (primary) hypertension (principal); E78.00 Pure hypercholesterolemia, unspecified; I48.0 Paroxysmal atrial fibrillation; I35.0 Nonrheumatic aortic (valve) stenosis; H81.10 Benign paroxysmal vertigo, unspecified ear; R79.89 Other specified abnormal findings of blood chemistry

== ENCOUNTER → 2024-08-21 11:20 | Outpatient (BNVA) | payer MEDICARE, OTHER, SELFPAY | PROVIDERS: PCP Internal Medicine | DX: I10 Essential (primary) hypertension (principal); E78.00 Pure hypercholesterolemia, unspecified; I48.0 Paroxysmal atrial fibrillation; I35.0 Nonrheumatic aortic (valve) stenosis; R79.89 Other specified abnormal findings of blood chemistry; H81.10 Benign paroxysmal vertigo, unspecified ear | CPT/HCPCS: 99212 ==

== ENCOUNTER 2024-12-09 06:37 | Outpatient (REF) | payer MEDICARE, OTHER, SELFPAY ==
[2024-12-09 12:17] LABS: Free T4 (Free Thyroxine) 0.93 ng/dL (0.71-1.85)
== END 2024-12-09 06:38 | disposition home or self-care (01) ==
LOC: HO.HMGCLDS 06:37
DX: R79.89 Other specified abnormal findings of blood chemistry (principal)
CPT/HCPCS: 36415; 84439; 84443

== ENCOUNTER 2024-12-12 10:47 | Outpatient (AMB) | payer MEDICARE, OTHER, SELFPAY ==
[2024-12-12 10:51] VITALS: BP 148/66; PULSE 70; RESP 18; TEMP 36.2; O2SAT 97; BMI 24.7
--- NOTE | 2024-12-12 10:51 | MHC.PC.OV ---
Vital Signs 12/12/24 10:51 12/12/24 11:21 Height 5 ft 2 in Weight 135 lb 4 oz BMI 24.7 BP 148/66 H 142/70 H Blood Pressure Location Lt brachial Lt brachial Position Sitting Sitting Respiration 18 Pulse 70 Pulse Source Pulse Oximeter Temp 97.1 F Temp Source Temporal Artery Scan Pulse Oximetry (%) 97 Oxygen Delivery Method Room Air Intake Visit Reasons: annual exam Diesel Dinkey Engineer Required: No Accompanied by: Self / Same As Patient Allergies ciprofloxacin (From Cipro) Allergy (Mild, Verified 12/12/24 11:03) DIARRHEA,CRAMPING clarithromycin (From Biaxin) Allergy (Mild, Verified 12/12/24 11:03) DIARRHEA,CRAMPING AKI Inhibitors Allergy (Unknown, Verified 12/12/24 11:03) Unknown indomethacin (From INDOCIN) Allergy (Unknown, Verified 12/12/24 11:03) DIZZY lisinopril (LISINOPRIL) Allergy (Unknown, Verified 12/12/24 11:03) DIZZY Medication List - Last Reconciled 12/12/24 by Liliane Welch PA-C diltiazem HCl CD 240 mg PO DAILY hydrochlorothiazide 12.5 mg PO DAILY lovastatin 40 mg PO DAILY metoprolol succinate ER 12.5 mg (1/2 x 25 mg) PO DAILY multivitamin 1 tab PO DAILY rivaroxaban (Xarelto) 20 mg PO DAILY Tobacco use date assessed: 12/12/24 Fall risk assessment: 1 Fall in past year Last assessed Fall Risk: 12/12/24 Dental Screening Dental Screen Date: 12/12/24 Did you have a dental visit in the last 12 months?: Yes Did you have a dental problem in the last 6 months where you did not have access to dental care?: No Was dental information given to patient?: Patient has dentist HPI annual exam HPI Details 83-year-old female with past medical history of hypertension, AFib, aortic stenosis, hyperlipidemia, BPPV last seen 08/2024 coming in for annual exam. Presenting with a wellness check and management of chronic conditions. Vertigo Experienced two years ago with severe symptoms, resolved with medication and therapy. A recent minor episode was managed with meclizine. Blood pressure typically 120/130 mmHg, elevated during visit, advised to monitor at home. History of cerumen removal, minimal wax noted and removed during visit. vaccines: flu shot given today, due for Td PFSH Medical History Pneumonia due to 2019-nCoV Fracture of left tibia Hyperlipidemia Aortic stenosis Encephalopathy acute HLD (hyperlipidemia) Surgical History History of melanoma excision History of cataract surgery History of hysterectomy History of section H/O rectal polypectomy History of breast lump/mass excision Family History Father Stroke Mother Emphysema lung Social History Household Members: Family Housing: House Do you presently have visiting nurse or other home services: No Alcohol intake: current Alcohol intake frequency: a few times a week 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 Patient Tobacco Use Status: Never used Tobacco e-Cigarette/Vaping Use: Never Used Second Hand Smoke Exposure: No service: No Current occupational status: retired Current occupational exposures/hazards: No Cognitive needs: No Hearing needs: No Vision needs: Yes (Glasses) Questionnaire PHQ-9 Over the last 2 weeks, how often have you been bothered by any of the following problems? 1. Little interest or pleasure in doing things: nearly every day 2. Feeling down, depressed, or hopeless: not at all 3. Trouble falling or staying asleep, or sleeping too much: not at all 4. Feeling tired or having little energy: not at all 5. Poor appetite or overeating: not at all 6. Feeling bad about yourself - or that you are a failure or have let yourself or your family down: not at all 7. Trouble concentrating on things, such as reading the newspaper or watching television: not at all 8. Moving or speaking so slowly that other people could have noticed. Or the opposite - being so fidgety or restless that you have been moving around a lot more than usual: not at all 9. Thoughts that you would be better off or of hurting yourself in some way: not at all Total score: 3 Source: Developed by Drs. Aaron Galeana, Mark George and colleagues, with an educational jhoana from [employer]. Thrive Questionnaire Date Thrive assessed: 05/01/24 I am a: Patient What is your living situation today?: I have a steady place to live Within the past 12 months, did the food you bought not last and you didn't have the money to get more?: Never true Within the past 12 months, did you worry whether your food would run out before you got money to buy more?: Never true Do you have trouble paying for medicines?: No Do you have trouble getting transportation to medical appointments?: No Do you have trouble paying your heating and electricity bill?: No Do you have trouble taking care of your child, family member or friend?: No Do you have trouble with day-to-day activities such as bathing, preparing meals, shopping, managing finances, etc.?: No Are you currently unemployed and looking for a job?: No Are you interested in more education?: No Please select the resources that you would like help with: None Currently or been in a relationship where the following occur: No concerns reported THRIVE Score: 0 AUDIT C Alcohol Use Questionnaire (AUDIT-C) 1. How often do you have a drink containing alcohol?: Monthly or less 2. How many drinks containing alcohol do you have on a typical day when you are drinking?: 1 or 2 3. How often do you have six or more drinks on one occasion?: Never Total Score: 1 KENNETH-7 AMB Questionnaire KENNETH-7 Date KENNETH - 7 assessed: 05/01/24 Feeling nervous, anxious, or on edge: 0 = Not at all Not being able to stop or control worryin = Not at all Worrying too much about different things: 0 = Not at all Trouble relaxin = Not at all Being so restless that it is hard to sit still: 0 = Not at all Becoming easily annoyed or irritable: 0 = Not at all Feeling afraid as if something awful might happen: 0 = Not at all Total KENNETH-7 score (0-4 normal; 5-9 mild; 10-14 moderate; 15-21 severe): 0 Source: Developed by Drs. Aaron Galeana, Mark George and colleagues, with an educational jhoana from [employer]. Review of Systems Const Denies body aches, Denies fatigue, Denies fever(s), Denies frequent falls, Denies headache(s) and Denies weakness Eyes Reports no additional complaints and Denies change in vision ENT Denies dysphagia, Denies dizziness, Denies facial pain, Denies headache(s), Denies nasal congestion and Denies odynophagia Card Denies chest pain, Denies syncope, Denies irregular heart rhythm, Denies leg edema, Denies lightheadedness and Denies dyspnea Resp Denies cough and Denies dyspnea GI Denies constipation, Denies dysphagia, Denies dyspepsia, Denies diarrhea, Denies nausea, Denies odynophagia and Denies vomiting Denies urinary frequency, Denies dysuria, Denies urinary hesitancy and Denies urinary urgency Musc Denies back pain and Denies myalgias Skin/Breast Reports system reviewed and no additional complaints, except as documented Neuro Denies dizziness, Denies syncope, Denies frequent falls, Denies headache(s) and Denies weakness Psych Reports no additional complaints Endo Denies fatigue Physical exam (Primary Care) Vital Signs: Last Vital Signs Temp 97.1 F 12/12/24 10:51 Pulse 70 12/12/24 10:51 Resp 18 12/12/24 10:51 BP 142/70 H 12/12/24 11:21 Pulse Ox 97 12/12/24 10:51 Oxygen Delivery Method Room Air 12/12/24 10:51 BMI result Body Mass Index 24.7 Tobacco/Smoking Status: Tobacco use Status Tobacco use date assessed 12/12/24 12/12/24 10:58 Patient Tobacco Use Status Never used Tobacco 12/12/24 10:58 e-Cigarette/Vaping Use Never Used 12/12/24 10:58 PHQ-9: PHQ-9 Score PHQ-9: Total score 3 12/12/24 11:35 Thrive Assessment: Date of Thrive Assessment Date Thrive assessed 05/01/24 12/12/24 10:58 Currently or been in a relationship where the following occur: No concerns reported Const General: cooperative, healthy appearing, comfortable and no acute distress Orientation/consciousness: patient oriented x3 HENMT Head: Yes normocephalic Ears: hearing grossly normal bilaterally, external ears normal, TM's normal bilaterally and EAC's normal General nose exam: Normal external nose present Face and sinus: Yes normal facial exam and Yes sinuses nontender Mouth: Normal oral and palatal mucosa present and tongue normal Throat: Yes posterior oropharynx normal Eyes General: appearance normal, both eyes and all related structures Conjunctivae: conjunctivae normal Pupils: Equal, round and reactive pupils present EOM: EOMs intact bilaterally and No Nystagmus present Neck Neck: Yes normal visual inspection, Yes full ROM and Yes no lymphadenopathy Chest Chest palpation & inspection: normal inspection of the chest Resp Effort & Inspection: normal respiratory effort Auscultation: clear to auscultation bilaterally, no crackles, no rales, no rhonchi, no wheezes and breath sounds present Cardio Rate: regular rate Rhythm: regular rhythm Peripheral pulses: radial pulses present and dorsalis pedis present GI Inspection: Yes normal to inspection and No Abdominal wall edema Palpation (GI): Soft to palpation, not firm and nontender Auscultation: normal bowel sounds Rectal Exam - Female: deferred General: Yes no CVA tenderness Back/Spine/Pelvis Back: no CVA tenderness Skin General skin exam: no rashes or lesions noted Neuro General: patient oriented x3 Cranial nerves: Yes Equal, round and reactive pupils present, Yes Midline tongue present, Yes Ability to bilaterally elevate shoulders present and No Nystagmus present Gait exam (Neuro): Normal gait present Extrem General: Yes normal to inspection, Yes full ROM, No no pedal edema and No edema Psych Speech and movement: Normal speech and movement present Affect: normal affect Insight: Good insight present (Psych) Judgement: Good judgement present (Psych) Office Procedures Flu Questionnaire Does the patient have a severe egg allergy?: No Does the patient have severe life threatening allergies?: No Does the patient have a fever or illness today?: No Has the patient ever had Guillain-[place] Syndrome?: No Has the patient ever had any past reaction to a flu shot?: No Immunizations Fluarix [id number] (PF) 45 mcg (15 mcg x 3)/0.5 mL IM syringe Performing Provider: Liliane Welch PA-C [facility] Administered by: JESUS Cross on 12/12/24 11:37 Dose Route Admin Location Dispensed Lot Number Expiration Date [facility] [place] [employer] Workflow Consultant 0.5 mL IM Left Deltoid 0.5 mL [id number] 09/04/25 [id number] [email or web address] VIS Given Date VIS Provided VIS Publication Date 12/12/24 Single Vaccine 24 Eligibility Eligibility Date Funding Source Not [facility] Eligible 12/12/24 Private Coding Level of Care Code Est Pt Prev Care >65y(64595) Diagnoses Annual physical exam Z00.00 Primary hypertension I10 Hypertension type: primary hypertension Pure hypercholesterolemia E78.00 Hyperlipidemia type: pure hypercholesterolemia PAF (paroxysmal atrial fibrillation) I48.0 Nonrheumatic aortic valve stenosis I35.0 Cardiac valve disease etiology: nonrheumatic Benign paroxysmal positional vertigo, unspecified laterality H81.10 Laterality: unspecified laterality Elevated TSH R79.89 Assessment & Plan Assessment & Plan (1) Annual physical exam: Code(s): Z00.00 - Encounter for general adult medical examination without abnormal findings Category: Medical Plan: Patient is up-to-date on all recommended routine screenings and vaccinations for her age. Flu shot was given in the office today and she is due for TD but plan for this at her next visit. Blood work is up-to-date and has been reviewed with the patient. Ordered for updated blood work as well. Healthy diet and regular exercise is encouraged. (2) Hypertension: Code(s): I10 - Essential (primary) hypertension Category: Medical Qualifiers: Hypertension type: primary hypertension Qualified Code(s): I10 - Essential (primary) hypertension Plan: Continue on current blood pressure medication. Avoid salt intake and encourage healthy diet and regular exercise. Blood pressure mildly elevated in the office today 142/70 recommend taking blood pressures at home and bring log to next visit. She agrees to reach out if blood pressures exceed 140/90 at home and reviewed red flag symptoms and when to present for re-evaluation (3) Hyperlipidemia: Code(s): E78.5 - Hyperlipidemia, unspecified Category: Medical Qualifiers: Hyperlipidemia type: pure hypercholesterolemia Qualified Code(s): E78.00 - Pure hypercholesterolemia, unspecified Plan: Avoid foods that are high in cholesterol such as red meat, fried foods, eggs and baked goods. Triglyceride goal of less than 150 and LDL goal of less than 100. Continue on Lovastatin. Ordered for repeat blood work (4) PAF (paroxysmal atrial fibrillation): Comment: On diltiazem and Xarelto. Code(s): I48.0 - Paroxysmal atrial fibrillation Category: Medical Plan: Continue to follow with tube room supervisor on yearly basis. Rate controlled with Metoprolol and on full oral anticoagulation with Xarelto. Asymptomatic at this time. (5) Aortic stenosis: Comment: Mild Code(s): I35.0 - Nonrheumatic aortic (valve) stenosis Category: Medical Qualifiers: Cardiac valve disease etiology: nonrheumatic Qualified Code(s): I35.0 - Nonrheumatic aortic (valve) stenosis Plan: Continue to follow with tube room supervisor at this time. Asymptomatic at this time. (6) BPPV (benign paroxysmal positional vertigo): Code(s): H81.10 - Benign paroxysmal vertigo, unspecified ear Category: Medical Qualifiers: Laterality: unspecified laterality Qualified Code(s): H81.10 - Benign paroxysmal vertigo, unspecified ear Plan: The patient experienced vertigo two years ago with severe symptoms, which were managed with medication and therapy. Recently, a minor episode was effectively managed with meclizine. Continued monitoring and management with meclizine as needed is advised. (7) Elevated TSH: Code(s): R79.89 - Other specified abnormal findings of blood chemistry Category: Medical Plan: Repeat labs WNL. Plan This note was constructed using voice recognition software. While every effort has been made to ensure accuracy and coat operator insulator, still areas may have been included sometimes these areas may affect the content or meeting of the given symptoms. Total time spent caring for the patient today was 30 minutes. This includes time spent before the visit reviewing the chart, time spent during the visit, and time spent after the visit and documentation. Patient was informed and verbally consented to the use of an ambient scribe for clinic note documentation during this visit. Orders: Orders Vitamin B12 and Folate Today Z13.21 - Encounter for screening for nutritional disorder Influenza [id number] Immunization Today Z23 - Encounter for immunization Lipid Panel Today E78.00 - Pure hypercholesterolemia, unspecified Comprehensive Met. Panel Today I10 - Essential (primary) hypertension, Z00.00 - Encounter for general adult medical examination without abnormal findings Vitamin D 25-OH Total Today Z13.21 - Encounter for screening for nutritional disorder
[2024-12-12 11:21] VITALS: BP 142/70
== END 2024-12-12 11:41 | disposition home or self-care (01) ==
LOC: HO.HMCH 10:48
DX: Z00.00 Encounter for general adult medical examination without abnormal findings (principal); I10 Essential (primary) hypertension; E78.00 Pure hypercholesterolemia, unspecified; I48.0 Paroxysmal atrial fibrillation; I35.0 Nonrheumatic aortic (valve) stenosis; H81.13 Benign paroxysmal vertigo, bilateral; R79.89 Other specified abnormal findings of blood chemistry; Z23 Encounter for immunization

== ENCOUNTER → 2024-12-12 10:47 | Outpatient (BNVA) | payer MEDICARE, OTHER, SELFPAY | DX: Z00.00 Encounter for general adult medical examination without abnormal findings (principal); I10 Essential (primary) hypertension; I48.91 Unspecified atrial fibrillation; I35.0 Nonrheumatic aortic (valve) stenosis; E78.5 Hyperlipidemia, unspecified; E78.00 Pure hypercholesterolemia, unspecified; I48.0 Paroxysmal atrial fibrillation; H81.10 Benign paroxysmal vertigo, unspecified ear; R79.89 Other specified abnormal findings of blood chemistry; Z23 Encounter for immunization | CPT/HCPCS: 90471; 90656; 96127; 99397 ==

== ENCOUNTER 2025-01-01 10:05 | Outpatient (AMB) | payer MEDICARE, OTHER, SELFPAY ==
[2025-01-01 10:10] VITALS: BP 120/72; PULSE 72; BMI 24.8
--- NOTE | 2025-01-01 10:10 | MHC.OFFVIS ---
Vital Signs 01/01/25 10:10 Height 5 ft 2 in Weight 135 lb 5.821 oz BMI 24.8 BP 120/72 Blood Pressure Location Lt brachial Position Sitting Pulse 72 Pulse Source Monitor Intake Visit Reasons: 1 Year Follow up (KM) Careers Counsellor Required: No Allergies ciprofloxacin (From Cipro) Allergy (Mild, Verified 01/01/25 10:13) DIARRHEA,CRAMPING clarithromycin (From Biaxin) Allergy (Mild, Verified 01/01/25 10:13) DIARRHEA,CRAMPING AKI Inhibitors Allergy (Unknown, Verified 01/01/25 10:13) Unknown indomethacin (From INDOCIN) Allergy (Unknown, Verified 01/01/25 10:13) DIZZY lisinopril (LISINOPRIL) Allergy (Unknown, Verified 01/01/25 10:13) DIZZY Medication List - Last Reconciled 01/01/25 by Ella Colon, FERNANDO-C diltiazem HCl CD 240 mg PO DAILY hydrochlorothiazide 12.5 mg PO DAILY lovastatin 40 mg PO DAILY metoprolol succinate ER 12.5 mg (1/2 x 25 mg) PO DAILY multivitamin 1 tab PO DAILY rivaroxaban (Xarelto) 20 mg PO DAILY HPI HPI 1 Year Follow up (KM): Details: Binta is an 84-year-old female with past medical history of hypertension, hyperlipidemia, paroxysmal atrial fibrillation, mild aortic stenosis who presents for follow-up. Today she reports she has been doing well since her last visit 11/24/2023. She describes having 1 mechanical fall August 2024 and did strike her head. She did have evaluation and was told she had no fractures or bleeding in her head. She has no chest discomfort at rest or with activity. She has not been experiencing any recent heart palpitations. No shortness of breath, PND, orthopnea or edema. She reports good activity tolerance and lives with her . She walks her dog periodically and took care of her garden during the summer months. She is compliant with her medications. No bleeding issues reported. 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 Patient Tobacco Use Status: Never used Tobacco e-Cigarette/Vaping Use: Never Used Second Hand Smoke Exposure: No service: No Current occupational status: retired Current occupational exposures/hazards: No Cognitive needs: No Hearing needs: No Vision needs: Yes (Glasses) Review of Systems Const All systems reviewed & are unremarkable except as noted in HPI and below ENT Denies dizziness Card Denies chest pain, Denies chest pain at rest, Denies chest pain with activity, Denies rapid heart rate, Denies pedal edema, Denies edema, Denies leg edema, Denies lightheadedness, Denies palpitations, Denies dyspnea, Denies dyspnea on exertion and Denies orthopnea Resp Denies cough, Denies dyspnea and Denies dyspnea on exertion GI Denies hematochezia and Denies change in stool character Musc Denies abnormal gait, Denies limited range of motion, Denies muscle cramps, Denies muscle weakness, Denies numbness, Denies radiating pain into limb, Denies stiffness and Denies tingling Neuro Denies abnormal gait, Denies dizziness, Denies numbness and Denies tingling Endo Denies palpitations Physical Exam Vital Signs: Last Vital Signs Pulse 72 01/01/25 10:10 BP 120/72 01/01/25 10:10 BMI result Body Mass Index 24.8 Const General: cooperative, healthy appearing, comfortable and no acute distress Orientation/consciousness: patient oriented x3 Neck Neck: Yes normal visual inspection Resp Effort & Inspection: normal respiratory effort Auscultation: clear to auscultation bilaterally, no rales, no rhonchi and no wheezes Cardio Rate: regular rate Rhythm: regular rhythm Heart sounds: S1 normal heart sound present, S2 normal heart sound present, no gallops, Murmur heart sound present (systolic murmur, 2/6 right sternal border) and no rubs Neuro General: patient oriented x3 Extrem General: Yes normal to inspection, No no pedal edema and No calf tenderness Psych Appearance: grossly normal Mental Status: mental status grossly normal Speech and movement: Normal speech and movement present Office Procedures EKG Details: Today, read by me, normal sinus rhythm, Qtc 400ms, rate 72 [id number], Complete Assessment & Plan Assessment & Plan (1) PAF (paroxysmal atrial fibrillation): Comment: On diltiazem and Xarelto. Code(s): I48.0 - Paroxysmal atrial fibrillation Category: Medical Plan: History of paroxysmal atrial fibrillation treated with rhythm control using diltiazem and metoprolol. She is on Xarelto for anticoagulation. Labs 07/27/2024 showed hemoglobin 13.1, creatinine 0.59. EKG today showing normal sinus rhythm, rate 72. No recent heart palpitations. No med changes made. Cardiology follow-up 1 year, sooner if needed. (2) Aortic stenosis: Comment: Mild Code(s): I35.0 - Nonrheumatic aortic (valve) stenosis Category: Medical Qualifiers: Cardiac valve disease etiology: nonrheumatic Qualified Code(s): I35.0 - Nonrheumatic aortic (valve) stenosis Plan: Echocardiogram 04/10/2020 shows normal EF, mild LVH, mildly dilated left atrium, mild aortic stenosis and mild mitral regurgitation. She does have systolic murmur on examination. 2nd heart sound clearly audible, so is not likely severe. Will update echocardiogram and plan to call her with results. (3) Hypertension: Code(s): I10 - Essential (primary) hypertension Category: Medical Qualifiers: Hypertension type: primary hypertension Qualified Code(s): I10 - Essential (primary) hypertension Plan: Blood pressure goal less than 130/80. Well controlled at this time. Continue diltiazem, metoprolol, hydrochlorothiazide. (4) Hyperlipidemia: Code(s): E78.5 - Hyperlipidemia, unspecified Category: Medical Qualifiers: Hyperlipidemia type: pure hypercholesterolemia Qualified Code(s): E78.00 - Pure hypercholesterolemia, unspecified Plan: [place] LDL goal less than 100. Labs 07/27/2024 showed LDL 76. Followed by PCP. Continue lovastatin. Plan Time spent on chart review, documentation, interview and assessment Orders: Orders CA echo transthoracic complete Today I35.0 - Nonrheumatic aortic (valve) stenosis Coding Level of Care Code Est Pt Level 4 (24383) Complex EM visit Add On G2211 Diagnoses PAF (paroxysmal atrial fibrillation) I48.0 Nonrheumatic aortic valve stenosis I35.0 Cardiac valve disease etiology: nonrheumatic Primary hypertension I10 Hypertension type: primary hypertension Pure hypercholesterolemia E78.00 Hyperlipidemia type: pure hypercholesterolemia CPT Codes EKG - CPT: [id number], Complete ([id number]) Time Spent (min) 28
== END 2025-01-01 10:45 | disposition home or self-care (01) ==
LOC: HO.HCS 10:06
PROVIDERS: Visit Provider Nurse Practitioner Family
DX: I48.0 Paroxysmal atrial fibrillation (principal); I35.0 Nonrheumatic aortic (valve) stenosis; I10 Essential (primary) hypertension; E78.00 Pure hypercholesterolemia, unspecified
CPT/HCPCS: 93010; 99214; G2211

== ENCOUNTER → 2025-01-01 10:05 | Outpatient (BNVA) | payer MEDICARE, OTHER, SELFPAY | PROVIDERS: Visit Provider Nurse Practitioner Family | DX: I48.0 Paroxysmal atrial fibrillation (principal); I35.0 Nonrheumatic aortic (valve) stenosis; I10 Essential (primary) hypertension; E78.00 Pure hypercholesterolemia, unspecified; Z79.01 Long term (current) use of anticoagulants | CPT/HCPCS: 93005; 99212 ==

== ENCOUNTER → 2025-01-29 12:46 | Outpatient (REF) | payer MEDICARE, OTHER, SELFPAY ==
--- NOTE | 2025-01-29 12:49 | CA_ITS ---
Transthoracic Echocardiogram Patient (Last, First, Middle): Binta Muñoz L Gender: F Date of : 1940 Age: 84 Procedure Date: 01/29/2025 Procedure Type: Transthoracic Echocardiogram Location: OP Height: 160. cm Weight: 60.33 kg BSA: 1.63 m2 Heart Rate: 65 bpm BP: 135 / 60 mmHg Slip Cover Operator: PAT Referring MD: Ella Colon [employer] MECHANICWilmaC Symptoms: I35.0 - Nonrheumatic aortic (valve) stenosis Study Quality: Adequate ECG Rhythm: Sinus Conclusions: - The left ventricular systolic function is normal. The calculated ejection fraction is 67% by biplane method. - Aortic valve calcification with early stenosis. Findings Left Ventricle Normal left ventricular cavity size. The left ventricular systolic function is normal. The calculated ejection fraction is 67% by biplane method. There is no evidence of regional wall motion abnormalities. Diastolic function is normal for age. There is mild septal asymmetric hypertrophy. Right Ventricle Normal right ventricular cavity size and systolic function. Atria Both atria are normal in size. Aortic Valve There is a normal trileaflet aortic valve. There is mild calcification of the aortic valve. There is mild aortic valve stenosis. Trace to mild aortic regurgitation. Mitral Valve The mitral valve appears normal. There is mild mitral valve regurgitation. There is no mitral valve stenosis. Pulmonic Valve The pulmonic valve is likely normal. Tricuspid Valve Normal tricuspid valve structure. There is mild tricuspid valve regurgitation. There is no evidence of pulmonary hypertension. Great Vessels The asc aorta and aortic arch are normal in size. Moderate plaque is seen in the sino tubular ridge. Venous The inferior vena cava is normal in size and collapses greater than 50% with inspiration. Pericardium/Pleural There is a trivial pericardial effusion. Prior Study Comparison No significant change compared to prior study dated: 04/08/2020. Measurements 2D Linear Measurements IVSd: 1.09 0.6-0.9/0.6-1.0 cm LVIDd: 3.93 3.9-5.3/4.2-5.9 cm LVIDd Index: 2.41 2.4-3.2/2.2-3.1 cm/m2 LVIDs: 2.15 2.0-3.6 cm LVPWd: 0.83 0.7-1.1 cm LA Diam: 3.70 2.7-3.8/3.0-4.0 cm LAIDs Index: 2.27 1.5-2.3 cm/m2 LV Mass: 144.55 67-162/88-224 g LV Mass Index: 88.68 43-95/49-115 g/m2 LVOT Diam: 1.90 3.0+(-)1.3 cm 2D Systolic Function EF 4C: 65.90 >55% EF 2C: 68.30 >55% EF BiP: 67.10 >55% Mitral Valve MV Pk E: 1.09 MV PK A: 1.03 MV Decel Time: 212.00 E/A: 1.10 E'Lateral: 8.38 E'Medial: 6.53 E/E' Med: 16.70 E/E' Lat: 13.00 PHT: 62.00 MVA PHT: 3.55 Decel Rawlins: 5.15 Aortic Valve AoV Pk Randell: 1.85 AoV Mn Randell: 1.37 AoV VTI: 0.48 AoV Pk Grad: 14.00 Aov Mn Grad: 8.00 TANI Cont.VTI: 1.59 AI Pk Randell: 4.29 AI Rawlins: 2.65 LVOT LVOT Pk Randell: 1.08 LVOT Mn Randell: 0.74 LVOT VTI: 0.27 LVOT Pk Grad: 5.00 LVOT Mn Grad: 3.00 LVOT Diam: 1.90 LVOT Area: 2.84 Diastolic Function MV Pk E: 1.09 MV Pk A: 1.03 E/A: 1.10 E'Medial: 6.53 E/E' Med: 16.70 E' Laterial: 8.38 E/E' Lat: 13.00 Right Ventricle TAPSE (mm): 24.20 TVS' Randell: 8.49 Tricuspid Valve TR Pk Randell: 2.52 TR Pk Grad: 25.00 RA Press: 3.00 RVSP: 28.00 Great Vessels Aorta Sinus of Valsalva: 2.80 2.0-3.5 cm Ao Asc: 3.60 2.1-3.4 cm Ao Arch: 2.70 Pulmonary Veins Pulm Vein S/D 1.00 Pulmonary Valve PV Pk Randell: 1.06 Peak PV Grad: 4.00 Updated in Other Vendor System with Status of Final Rakesh Celis MD electronically signed on 01/30/2025 9:50:52 AM with status of Final
== END ==
LOC: HO.CARD 12:46
PROVIDERS: Visit Provider Nurse Practitioner Family
DX: I35.0 Nonrheumatic aortic (valve) stenosis (principal)
CPT/HCPCS: 93306

== ENCOUNTER → 2025-01-29 12:49 | Outpatient (BNV) | payer MEDICARE, OTHER, SELFPAY | PROVIDERS: Visit Provider Internal Medicine | DX: I35.0 Nonrheumatic aortic (valve) stenosis (principal); I35.8 Other nonrheumatic aortic valve disorders; I42.2 Other hypertrophic cardiomyopathy | CPT/HCPCS: 93306 ==